=== PATIENT | male | born 1950 | race Caucasian/White ===

== ENCOUNTER 2020-09-16 06:52 | Outpatient (REF) | payer MEDICARE, SELFPAY ==
[2020-09-16 07:42] LABS: MANUAL DIFF FLAG NO
[2020-09-16 07:47] LABS: Basophils Percent Auto 0.4 % (0-2); Eosinophils Absolute Auto 0.3 X10*3/uL (0.0-0.4); Eosinophils Percent Auto 4.1 % (0-4); Hematocrit 46.8 % (42-52); Imm Gran Abs Auto 0.02 X10*3/uL (0.00-0.03); Imm Gran Pct Auto 0.3 % (0.0-0.4); Lymphocytes Absolute Auto 2.1 X10*3/uL (1.2-4.9); Lymphocytes Percent Auto 30.2 % (20-40); Mean Corpuscular HGB Conc 34.2 g/dl (31.0-36.0); Mean Corpuscular Hemoglobin 31.7 pg (27.0-33.0); Mean Corpuscular Volume 92.9 fL (80-98); Mean Platelet Volume 8.9 fL (9.4-12.4); Monocytes Absolute Auto 0.7 X10*3/uL (0.1-1.2); Neutrophils Absolute Auto 3.8 X10*3/uL (2.0-8.3); Platelet Count 328 X10*3/uL (160-400); Red Blood Count 5.04 X10*6/uL (4.60-5.80); Red Cell Distribution Width 13.1 % (11.0-16.0); White Blood Count 6.8 X10*3/uL (4.8-10.8)
[2020-09-16 08:13] LABS: Alanine Aminotransferase 21 U/L (0-40); Alkaline Phosphatase 80 U/L (39-117); Anion Gap 12 (12-20); Aspartate Amino Transferase 23 U/L (5-37); Bilirubin Total 0.5 mg/dL (0.0-1.0); Blood Urea Nitrogen 18 mg/dL (9-16); Calcium 9.7 mg/dL (8.4-10.2); Carbon Dioxide 26 mmol/L (22-29); Chloride 106 mmol/L (96-108); Cholesterol 161 mg/dL; Estimated Glomerular Filt Rate > 60; Glucose Fasting 103 mg/dL (60-99); HDL Cholesterol 42 mg/dL; LDL Cholesterol Calculated 86 mg/dl; Potassium 4.2 mmol/L (3.3-5.1); Sodium 140 mmol/L (135-145); Total Protein 7.1 g/dL (6.5-8.0); Triglycerides 169 mg/dL
[2020-09-16 08:23] LABS: TSH reflex Free T4 0.57 uIU/mL (0.32-4.0)
[2020-09-16 08:31] LABS: Glucose Urine UA NEG (NEG); Leukocyte Esterase Urine NEG (NEG); Nitrite Urine NEG (NEG); Specific Gravity - Urine >= 1.030 (1.005-1.025); Urine Blood NEG (NEG); Urine Ketones NEG (NEG); Urine Protein TRACE MG/DL (NEG-TRACE)
[2020-09-16 08:34] LABS: Appearance Urine CLEAR; Color Urine DARK YELLOW
== END 2020-09-16 06:53 | disposition home or self-care (01) ==
LOC: HO.LAB 06:52
PROVIDERS: PCP Internal Medicine; Visit Provider Internal Medicine
DX: K58.9 Irritable bowel syndrome, unspecified (principal); E78.00 Pure hypercholesterolemia, unspecified; R03.0 Elevated blood-pressure reading, without diagnosis of hypertension
CPT/HCPCS: 36415; 80053; 80061; 81003; 84443; 85025

== ENCOUNTER → 2020-10-17 10:44 | Outpatient (BNVA) | payer MEDICARE, SELFPAY | PROVIDERS: PCP Internal Medicine; Referring Provider Internal Medicine; Visit Provider Surgery | DX: Z86.010 Personal history of colon polyps (principal) | CPT/HCPCS: 99202 ==

== ENCOUNTER 2020-11-18 07:17 | Day surgery (SDC) | payer MEDICARE, SELFPAY ==
[2020-11-10 15:50] VITALS: BMI 24.2
--- NOTE | 2020-11-17 08:42 | P.CONAN_ITS ---
Documented by User: Mercedes Healy 11/17/20 08:44 HPI - Anesthesia Eval Consult details Narrative: 70yo M for Colonoscopy with Poss Polypectomy PMFSH Active Problems Active Problems: All Active Problems (Updated 11/10/20 @ 16:01 by Alondra Ewing) History of adenomatous polyp of colon (Acute) Irritable bowel syndrome (IBS) (Acute) Elevated blood pressure reading (Acute) Pure hypercholesterolemia (Acute) Past Medical History Medical History Abnormal colonoscopy Elevated blood pressure reading History of adenomatous polyp of colon Irritable bowel syndrome (IBS) Pure hypercholesterolemia Tubular adenoma of colon Family History Family History Father Prostate cancer Brother Hepatitis Surgical History Surgical History History of eye surgery Social History Social History Are you a primary patient care to a significant other at home: No Do you presently have visiting nurse or other home services: No Alcohol intake: former Patient Tobacco Use Status: Former Tobacco user Use of substances other than those prescribed or required for medical reasons: No Are you DNR?: No Advance Directives: No Advance Directives Information Provided: No Advance Directives on File: No Meds Allergies Allergy/AdvReac Type Severity Reaction Status Date / Time lactose [LACTOSE] Allergy Severe DIARHEA, Verified 11/10/20 16:01 abd pain, bloating, LAUNDRY DETERGENT AdvReac Mild RASH TO Uncoded 11/10/20 16:01 UNKNOWN LAUNDRY DETERGENT Exam Exam Date and Time: November 17, 2020 0842 Height,Weight and Vital Signs: Height 5 ft 9 in Weight 74.389 kg Pertinent Lab Results Pertinent Lab Results: Laboratory Tests 09/16/20 09/16/20 07:10 07:10 WBC 6.8 Hgb 16.0 Hct 46.8 Plt Count 328 Sodium 140 Potassium 4.2 Chloride 106 Carbon Dioxide 26 BUN 18 H Creatinine 1.10 Assessment and Plan Assessment Anesthesia Assessment: Chart Reviewed Documented by User: Heidi Fernando 11/18/20 08:06 [facility] Past Medical History Medical History Abnormal colonoscopy Elevated blood pressure reading History of adenomatous polyp of colon Irritable bowel syndrome (IBS) Pure hypercholesterolemia Tubular adenoma of colon Family History Family History Father Prostate cancer Brother Hepatitis Family history of problems with anesthesia: No Surgical History Surgical History History of eye surgery History of Problems with Anesthesia: Yes Social History Social History Are you a primary patient care to a significant other at home: No Do you presently have visiting nurse or other home services: No Alcohol intake: former Patient Tobacco Use Status: Former Tobacco user Use of substances other than those prescribed or required for medical reasons: No Are you DNR?: No Advance Directives: No Advance Directives Information Provided: No Advance Directives on File: No Meds Allergies Allergy/AdvReac Type Severity Reaction Status Date / Time lactose [LACTOSE] Allergy Severe DIARHEA, Verified 11/10/20 16:01 abd pain, bloating, LAUNDRY DETERGENT AdvReac Mild RASH TO Uncoded 11/10/20 16:01 UNKNOWN LAUNDRY DETERGENT Exam Airway Mallampati Class: II TM Dist: >3cm Neck ROM: Full Assessment and Plan Assessment Anesthesia Assessment: Anesthesia Plan Discussed Final Anesthetic Review Family History of Problems with Anesthesia: No History of Problems with Anesthesia: Yes NPO: Yes ASA Class: II Final Preanesthetic Review: No Changes in Pt Med Stat, Meds/Allgs Chart Reviewed, Consent Obtained/Reviewed and Anes Risks/Benef Reviewed Patient Risk: Low Procedure Risk: Low Assessment/Block/Sedation in SS: Assess/Block/Sedation-SS Anesthetic Plan Anesthetic Plan: MAC: Disposition: Standard PACU
[2020-11-18 07:19] VITALS: BP 196/89; PULSE 82; RESP 19; TEMP 36.6; O2SAT 98
[2020-11-18 07:41] VITALS: BP 155/93; PULSE 77; RESP 18; TEMP 36.1; O2SAT 97
[2020-11-18] MEDS: Lactated Ringers 1,000 ML 100 ML IVCONT (07:42)
--- NOTE | 2020-11-18 07:59 | MHC.SHP ---
Pre-Procedural Eval Section A Date of Service: 11/18/20 Section B Chief Complaint: History of adenomatous polyp of colon Allergies: Allergies Allergy/AdvReac Type Severity Reaction Status Date / Time lactose [LACTOSE] Allergy Severe DIARHEA, Verified 11/10/20 16:01 abd pain, bloating, LAUNDRY DETERGENT AdvReac Mild RASH TO Uncoded 11/10/20 16:01 UNKNOWN LAUNDRY DETERGENT Plan I have reviewed the history and physical and performed a pertinent physical examination on my patient. No changes have occurred unless specified.
--- NOTE | 2020-11-18 08:31 | W.PM.OPN ---
Operative Note Operative Note Date of Service: 11/18/20 Narrative: Preop diagnosis: History of colon polyps Postop diagnosis: 1. Incomplete colonoscopy due to severe angulation in the sigmoid at level 35-40 cm - patient to be sent for CT colonography 2. Sigmoid diverticulosis, moderate Procedure: Colonoscopy up to the level 40 cm only Surgeon: Dixon Villalta MD Patient is a 70-year-old male with history of adenomas in 2016 and was recommended to have another follow-up colonoscopy in 5 years. He understood the technique of the procedure as well as the risks, benefits, and alternatives He was brought to the operating room and placed in left lateral decubitus position under monitored anesthesia care. A full digital rectal exam was done and there were no palpable anal lesions. The tip of the Olympus colonoscope was gently introduced through the anal orifice and advanced with insufflation. There was note of moderate diverticulosis seen in the sigmoid. At the level about 35-40 cm however, we encountered a very sharp angulation. We attempted to advance the scope through this sharp angulation multiple times without success. We spent some time with going re-advancing the scope to attempt to get past this sharp angulation. Eventually I felt that it would be unsafe to continue attempting so I decided to withdraw the scope and schedule the patient for CT colonography. I examined the rest of the distal sigmoid and rectum with withdrawal while. There was note of moderate diverticulosis of the sigmoid but there were no other lesions seen. The anal canal was unremarkable with the scope was then withdrawn completely. The patient tolerated procedure well. There were no immediate complications. I will arrange for the patient to undergo CT colonography to complete examination. I will decide on the next screening colonoscopy depending on the findings on CT colonography.
[2020-11-18 08:35] VITALS: BP 118/81; PULSE 73; RESP 14; TEMP 36.1; O2SAT 99
--- NOTE | 2020-11-18 08:35 | PM.OP ---
Brief Operative Note Date of Service: 11/18/20 Pre-op diagnosis: History of polyps Post-op diagnosis: other (Incomplete colonoscopy, sigmoid diverticulosis) Procedure: Incomplete colonoscopy to level 40 cm Surgeon: Dixon Villalta MD Anesthesia: MAC Was an Warehouse Operations Manager used for this Procedure?: No Estimated blood loss (mL): 0 Pathology: none sent Condition: stable Disposition: other (CT colonography)
[2020-11-18 08:50] VITALS: BP 131/83; PULSE 75; RESP 16; O2SAT 97
[2020-11-18 09:05] VITALS: BP 159/84; PULSE 72; RESP 16; O2SAT 97
[2020-11-18 09:14] VITALS: BP 159/87; PULSE 66; RESP 17; TEMP 36.7; O2SAT 96
== END 2020-11-18 11:41 | disposition home or self-care (01) ==
PROVIDERS: PCP Internal Medicine; Visit Provider Surgery
PROC: 0DJD8ZZ Inspection of Lower Intestinal Tract, Via Natural or Artificial Opening Endoscopic (ICD-10-PCS; CPT 45378; principal; 2020-11-18 08:30)
DX: Z12.11 Encounter for screening for malignant neoplasm of colon (principal); Z86.010 Personal history of colon polyps; K56.609 Unspecified intestinal obstruction, unspecified as to partial versus complete obstruction; K57.30 Diverticulosis of large intestine without perforation or abscess without bleeding; K58.9 Irritable bowel syndrome, unspecified; R03.0 Elevated blood-pressure reading, without diagnosis of hypertension; E78.00 Pure hypercholesterolemia, unspecified; Z79.899 Other long term (current) drug therapy; Z87.891 Personal history of nicotine dependence
CPT/HCPCS: 45330

== ENCOUNTER 2021-01-11 08:29 | Outpatient (REF) | payer MEDICARE, SELFPAY ==
[2021-01-11 10:39] LABS: Alanine Aminotransferase 17 U/L (0-40); Albumin Level 4.1 g/dL (3.5-5.0); Alkaline Phosphatase 88 U/L (39-117); Anion Gap 12 (12-20); Aspartate Amino Transferase 20 U/L (5-37); Bilirubin Total 0.8 mg/dL (0.0-1.0); Blood Urea Nitrogen 16 mg/dL (9-16); Carbon Dioxide 26 mmol/L (22-29); Chloride 106 mmol/L (96-108); Cholesterol 164 mg/dL; Estimated Glomerular Filt Rate > 60; Glucose Fasting 103 mg/dL (60-99); HDL Cholesterol 47 mg/dL; LDL Cholesterol Calculated 95 mg/dl; Potassium 4.6 mmol/L (3.3-5.1); Sodium 139 mmol/L (135-145); Total Protein 7.2 g/dL (6.5-8.0); Triglycerides 113 mg/dL
== END 2021-01-11 08:30 | disposition home or self-care (01) ==
LOC: HO.LAB 08:29
PROVIDERS: PCP Internal Medicine; Visit Provider Internal Medicine
DX: E78.00 Pure hypercholesterolemia, unspecified (principal)
CPT/HCPCS: 36415; 80053; 80061

== ENCOUNTER 2021-07-18 06:34 | Outpatient (REF) | payer MEDICARE, SELFPAY ==
[2021-07-18 06:44] LABS: MANUAL DIFF FLAG NO
[2021-07-18 07:28] LABS: Basophils Percent Auto 0.6 % (0-2); Eosinophils Absolute Auto 0.3 X10*3/uL (0.0-0.4); Eosinophils Percent Auto 4.6 % (0-4); Hematocrit 46.3 % (42.0-52.0); Hemoglobin 15.2 g/dl (14.0-18.0); Lymphocytes Absolute Auto 2.3 X10*3/uL (1.2-4.9); Lymphocytes Percent Auto 36.5 % (20-40); Mean Corpuscular HGB Conc 32.8 g/dl (31.0-36.0); Mean Corpuscular Hemoglobin 31.2 pg (27.0-33.0); Mean Corpuscular Volume 95.1 fL (80.0-98.0); Monocytes Absolute Auto 0.7 X10*3/uL (0.1-1.2); Monocytes Percent Auto 10.5 % (2-11); Neutrophils Percent Auto 47.8 % (45-73); Platelet Count 320 X10*3/uL (160-400); Red Blood Count 4.87 X10*6/uL (4.60-5.80); Red Cell Distribution Width 12.6 % (11.0-16.0); White Blood Count 6.3 X10*3/uL (4.8-10.8)
[2021-07-18 07:52] LABS: Alanine Aminotransferase 18 U/L (0-40); Albumin Level 4.1 g/dL (3.5-5.0); Alkaline Phosphatase 84 U/L (39-117); Anion Gap 11 (12-20); Aspartate Amino Transferase 21 U/L (5-37); Bilirubin Total 0.5 mg/dL (0.0-1.0); Blood Urea Nitrogen 18 mg/dL (9-16); Calcium 10.1 mg/dL (8.4-10.2); Carbon Dioxide 28 mmol/L (22-29); Chloride 108 mmol/L (96-108); Cholesterol 155 mg/dL; Estimated Glomerular Filt Rate > 60; Glucose Fasting 127 mg/dL (60-99); HDL Cholesterol 43 mg/dL; LDL Cholesterol Calculated 94 mg/dl; Sodium 143 mmol/L (135-145); Total Protein 7.1 g/dL (6.5-8.0); Triglycerides 91 mg/dL
[2021-07-18 08:15] LABS: TSH reflex Free T4 0.95 uIU/mL (0.32-4.0); Vitamin D 25-OH Total 38.9 ng/mL (>30)
[2021-07-18 08:27] LABS: Appearance Urine CLEAR; Color Urine YELLOW; Glucose Urine UA NEG (NEG); Leukocyte Esterase Urine NEG (NEG); Nitrite Urine NEG (NEG); PH 5.5 (5.0-8.0); Specific Gravity - Urine >= 1.030 (1.005-1.025); UACC Culture Trigger NO; Urine Blood 2+ (NEG); Urine Ketones NEG (NEG); Urine Protein TRACE MG/DL (NEG-TRACE)
[2021-07-18 08:47] LABS: Calcium Oxalate Crystals Urine TRACE /LPF; Mucus Urine 2+ /LPF; WBC Urine 0 /HPF (0-4)
== END 2021-07-18 06:35 | disposition home or self-care (01) ==
LOC: HO.LAB 06:34
PROVIDERS: PCP Internal Medicine; Visit Provider Internal Medicine
DX: I10 Essential (primary) hypertension (principal); E78.00 Pure hypercholesterolemia, unspecified; E55.9 Vitamin D deficiency, unspecified
CPT/HCPCS: 36415; 80053; 80061; 81001; 82306; 84443; 85025

== ENCOUNTER 2022-01-17 06:13 | Outpatient (REF) | payer MEDICARE, SELFPAY ==
[2022-01-17 06:25] LABS: MANUAL DIFF FLAG NO
[2022-01-17 07:38] LABS: Basophils Absolute Auto 0.1 X10*3/uL (0.0-0.2); Basophils Percent Auto 0.8 % (0-2); Eosinophils Absolute Auto 0.3 X10*3/uL (0.0-0.4); Eosinophils Percent Auto 3.6 % (0-4); Hematocrit 47.1 % (42.0-52.0); Hemoglobin 15.7 g/dl (14.0-18.0); Imm Gran Abs Auto 0.02 X10*3/uL (0.00-0.03); Imm Gran Pct Auto 0.2 % (0.0-0.4); Lymphocytes Absolute Auto 2.5 X10*3/uL (1.2-4.9); Lymphocytes Percent Auto 30.2 % (20-40); Mean Corpuscular HGB Conc 33.3 g/dl (31.0-36.0); Mean Corpuscular Hemoglobin 31.5 pg (27.0-33.0); Mean Corpuscular Volume 94.4 fL (80.0-98.0); Mean Platelet Volume 8.9 fL (9.4-12.4); Monocytes Absolute Auto 0.8 X10*3/uL (0.1-1.2); Monocytes Percent Auto 9.6 % (2-11); Neutrophils Absolute Auto 4.7 x10*3/uL (2.0-8.3); Neutrophils Percent Auto 55.6 % (45-73); Platelet Count 372 X10*3/uL (160-400); Red Blood Count 4.99 X10*6/uL (4.60-5.80); Red Cell Distribution Width 12.7 % (11.0-16.0); White Blood Count 8.4 X10*3/uL (4.8-10.8)
[2022-01-17 07:51] LABS: Alanine Aminotransferase 21 U/L (0-40); Albumin Level 4.3 g/dL (3.5-5.0); Alkaline Phosphatase 92 U/L (39-117); Anion Gap 15 (12-20); Aspartate Amino Transferase 23 U/L (5-37); Bilirubin Total 0.5 mg/dL (0.0-1.0); Blood Urea Nitrogen 16 mg/dL (9-16); Calcium 10.1 mg/dL (8.4-10.2); Carbon Dioxide 26 mmol/L (22-29); Chloride 104 mmol/L (96-108); Cholesterol 163 mg/dL; Estimated Glomerular Filt Rate > 60; Glucose Fasting 122 mg/dL (60-99); HDL Cholesterol 42 mg/dL; LDL Cholesterol Calculated 91 mg/dl; Potassium 4.5 mmol/L (3.3-5.1); Sodium 140 mmol/L (135-145); Total Protein 7.4 g/dL (6.5-8.0); Triglycerides 151 mg/dL
[2022-01-17 08:15] LABS: TSH reflex Free T4 0.99 uIU/mL (0.32-4.0)
== END 2022-01-17 06:14 | disposition home or self-care (01) ==
LOC: HO.LAB 06:13
PROVIDERS: PCP Internal Medicine; Visit Provider Internal Medicine
DX: I10 Essential (primary) hypertension (principal); E55.9 Vitamin D deficiency, unspecified; E78.00 Pure hypercholesterolemia, unspecified
CPT/HCPCS: 36415; 80053; 80061; 82306; 84443; 85025

== ENCOUNTER 2022-06-29 05:55 | Outpatient (REF) | payer MEDICARE, SELFPAY ==
[2022-06-29 06:10] LABS: MANUAL DIFF FLAG NO
[2022-06-29 07:11] LABS: Basophils Percent Auto 0.5 % (0-2); Eosinophils Absolute Auto 0.3 X10*3/uL (0.0-0.4); Eosinophils Percent Auto 4.1 % (0-4); Hematocrit 43.2 % (42.0-52.0); Hemoglobin 14.2 g/dl (14.0-18.0); Imm Gran Abs Auto 0.02 X10*3/uL (0.00-0.03); Imm Gran Pct Auto 0.3 % (0.0-0.4); Lymphocytes Absolute Auto 2.6 X10*3/uL (1.2-4.9); Lymphocytes Percent Auto 35.2 % (20-40); Mean Corpuscular HGB Conc 32.9 g/dl (31.0-36.0); Mean Corpuscular Hemoglobin 31.8 pg (27.0-33.0); Mean Corpuscular Volume 96.9 fL (80.0-98.0); Mean Platelet Volume 8.7 fL (9.4-12.4); Monocytes Absolute Auto 0.7 X10*3/uL (0.1-1.2); Monocytes Percent Auto 9.3 % (2-11); Neutrophils Absolute Auto 3.8 x10*3/uL (2.0-8.3); Neutrophils Percent Auto 50.6 % (45-73); Platelet Count 435 X10*3/uL (160-400); Red Blood Count 4.46 X10*6/uL (4.60-5.80); White Blood Count 7.5 X10*3/uL (4.8-10.8)
[2022-06-29 07:16] LABS: Appearance Urine Clear; Color Urine Yellow; Glucose Urine UA Negative (Negative); Leukocyte Esterase Urine Negative (Negative); Nitrite Urine Negative (Negative); PH 5.5 (5.0-9.0); Specific Gravity - Urine >= 1.030 (1.005-1.025); UMIC TRIGGER UACC YES; Urine Blood Small (1+) (Negative); Urine Ketones Negative (Negative); Urine Protein Negative (Neg-Trace)
[2022-06-29 07:28] LABS: Estimated Average Glucose 111 mg/dL; Hemoglobin A1c % 5.5 %
[2022-06-29 07:33] LABS: Bacteria Urine None Seen (None Seen); Hyaline Casts Urine 0-2 /LPF (0-2); Squamous Epithelial Cell Urine 0-2 /HPF (0-2); WBC Urine 0-5 /HPF (0-5)
[2022-06-29 07:45] LABS: Alanine Aminotransferase 19 U/L (0-40); Albumin Level 4.1 g/dL (3.5-5.0); Alkaline Phosphatase 80 U/L (39-117); Anion Gap 14 (12-20); Aspartate Amino Transferase 21 U/L (5-37); Bilirubin Total 0.6 mg/dL (0.0-1.0); Blood Urea Nitrogen 20 mg/dL (9-16); Calcium 9.7 mg/dL (8.4-10.2); Carbon Dioxide 26 mmol/L (22-29); Chloride 104 mmol/L (96-108); Cholesterol 165 mg/dL; Estimated Glomerular Filt Rate > 60; Glucose Fasting 118 mg/dL (60-99); HDL Cholesterol 44 mg/dL; LDL Cholesterol Calculated 97 mg/dl; Potassium 4.3 mmol/L (3.3-5.1); Sodium 140 mmol/L (135-145); Total Protein 7.2 g/dL (6.5-8.0); Triglycerides 123 mg/dL
[2022-06-29 08:03] LABS: TSH reflex Free T4 0.83 uIU/mL (0.32-4.0)
== END 2022-06-29 05:56 | disposition home or self-care (01) ==
LOC: HO.LAB 05:55
PROVIDERS: PCP Internal Medicine; Visit Provider Internal Medicine
DX: I10 Essential (primary) hypertension (principal); R73.01 Impaired fasting glucose; E78.00 Pure hypercholesterolemia, unspecified
CPT/HCPCS: 36415; 80053; 80061; 81001; 83036; 84443; 85025

== ENCOUNTER 2022-08-17 07:37 | Outpatient (REF) | payer MEDICARE, SELFPAY ==
--- NOTE | ~2022-08-17 | XR_ITS ---
EXAMINATION: XR knee LT 4V, XR knee RT 4V CLINICAL INFORMATION: Additional Information: p.s. bilateral knee and left hip pain : COMPARISON: None. TECHNIQUE: 4 views of the left knee including AP upright view. 4 views of the right knee including AP upright view. FINDINGS: Left knee: No fracture or subluxation. Mild medial compartment joint space narrowing. Small tricompartmental marginal osteophytes. Chondrocalcinosis at the medial and lateral compartments. No joint effusion. The soft tissues appear unremarkable. Right knee: No fracture or subluxation. Mild narrowing at the medial compartment. Small tricompartmental marginal osteophytes. Chondrocalcinosis of the medial and lateral compartments. No joint effusion. The soft tissues appear unremarkable. XR/XR knee RT 4V IMPRESSION: Mild tricompartmental degenerative changes of both knees. Chondrocalcinosis. No acute abnormality.
--- NOTE | ~2022-08-17 | XR_ITS ---
EXAMINATION: XR knee LT 4V, XR knee RT 4V CLINICAL INFORMATION: Additional Information: p.s. bilateral knee and left hip pain : COMPARISON: None. TECHNIQUE: 4 views of the left knee including AP upright view. 4 views of the right knee including AP upright view. FINDINGS: Left knee: No fracture or subluxation. Mild medial compartment joint space narrowing. Small tricompartmental marginal osteophytes. Chondrocalcinosis at the medial and lateral compartments. No joint effusion. The soft tissues appear unremarkable. Right knee: No fracture or subluxation. Mild narrowing at the medial compartment. Small tricompartmental marginal osteophytes. Chondrocalcinosis of the medial and lateral compartments. No joint effusion. The soft tissues appear unremarkable. XR/XR knee LT 4V IMPRESSION: Mild tricompartmental degenerative changes of both knees. Chondrocalcinosis. No acute abnormality.
--- NOTE | ~2022-08-17 | XR_ITS ---
EXAMINATION: XR HIP, LEFT CLINICAL INFORMATION: Pain COMPARISON: None available. TECHNIQUE: Two views of the left hip. FINDINGS: No fracture or dislocation. Moderate to severe degenerative changes of the left hip with joint space narrowing superiorly. Subchondral sclerosis with osteophytes noted. The left hemipelvis is intact. XR/XR hip LT min 2V IMPRESSION: Moderate to severe degenerative changes of the left hip.
== END 2022-08-17 07:38 | disposition home or self-care (01) ==
LOC: HO.XRAY 07:37
PROVIDERS: PCP Internal Medicine; Visit Provider Internal Medicine
DX: M25.552 Pain in left hip (principal); M25.561 Pain in right knee; M25.562 Pain in left knee
CPT/HCPCS: 73502; 73564

== ENCOUNTER 2023-01-14 08:00 | Outpatient (REF) | payer MEDICARE, SELFPAY ==
[2023-01-14 08:26] LABS: MANUAL DIFF FLAG NO
[2023-01-14 09:22] LABS: Basophils Absolute Auto 0.1 X10*3/uL (0.0-0.2); Eosinophils Absolute Auto 0.3 X10*3/uL (0.0-0.4); Eosinophils Percent Auto 4.8 % (0-4); Hematocrit 44.3 % (42.0-52.0); Hemoglobin 14.8 g/dl (14.0-18.0); Imm Gran Abs Auto 0.03 X10*3/uL (0.00-0.03); Imm Gran Pct Auto 0.4 % (0.0-0.4); Lymphocytes Percent Auto 28.3 % (20-40); Mean Corpuscular HGB Conc 33.4 g/dl (31.0-36.0); Mean Corpuscular Hemoglobin 32.5 pg (27.0-33.0); Mean Corpuscular Volume 97.1 fL (80.0-98.0); Mean Platelet Volume 8.9 fL (9.4-12.4); Monocytes Absolute Auto 0.9 X10*3/uL (0.1-1.2); Monocytes Percent Auto 12.2 % (2-11); Neutrophils Absolute Auto 3.7 x10*3/uL (2.0-8.3); Neutrophils Percent Auto 53.3 % (45-73); Platelet Count 367 X10*3/uL (160-400); Red Blood Count 4.56 X10*6/uL (4.60-5.80); Red Cell Distribution Width 12.5 % (11.0-16.0)
[2023-01-14 09:28] LABS: Appearance Urine Clear; Color Urine Dark Yellow; Glucose Urine UA Negative (Negative); Leukocyte Esterase Urine Negative (Negative); Nitrite Urine Negative (Negative); PH 5.5 (5.0-9.0); Specific Gravity - Urine >= 1.030 (1.005-1.025); Urine Blood Negative (Negative); Urine Ketones Trace mg/dL (Negative); Urine Protein Negative (Neg-Trace)
[2023-01-14 09:33] LABS: Estimated Average Glucose 105 mg/dL; Hemoglobin A1c % 5.3 % (<6.0)
[2023-01-14 11:09] LABS: Alanine Aminotransferase 20 U/L (0-40); Albumin Level 4.1 g/dL (3.5-5.0); Alkaline Phosphatase 74 U/L (39-117); Anion Gap 16 (12-20); Aspartate Amino Transferase 26 U/L (5-37); Bilirubin Total 0.5 mg/dL (0.0-1.0); Blood Urea Nitrogen 15 mg/dL (9-16); Calcium 9.8 mg/dL (8.4-10.2); Carbon Dioxide 24 mmol/L (22-29); Chloride 106 mmol/L (96-108); Cholesterol 138 mg/dL (<200); Estimated Glomerular Filt Rate > 60; Glucose Fasting 91 mg/dL (60-99); HDL Cholesterol 40 mg/dL (>40); LDL Cholesterol Calculated 72 mg/dL (<100); Potassium 4.1 mmol/L (3.3-5.1); Sodium 142 mmol/L (135-145); Total Protein 7.4 g/dL (6.5-8.0); Triglycerides 134 mg/dL (<150)
[2023-01-14 11:27] LABS: TSH reflex Free T4 0.98 uIU/mL (0.32-4.0); Vitamin D 25-OH Total 54.6 ng/mL (>30)
== END 2023-01-14 08:01 | disposition home or self-care (01) ==
LOC: HO.LAB 08:00
PROVIDERS: PCP Internal Medicine; Visit Provider Internal Medicine
DX: E78.00 Pure hypercholesterolemia, unspecified (principal); R30.0 Dysuria; R73.01 Impaired fasting glucose; I10 Essential (primary) hypertension; E55.9 Vitamin D deficiency, unspecified
CPT/HCPCS: 36415; 80053; 80061; 81003; 82306; 83036; 84443; 85025

== ENCOUNTER 2023-02-08 09:26 | Outpatient (AMB) | payer MEDICARE, SELFPAY ==
[2023-02-08 09:36] VITALS: BP 124/82; PULSE 63; O2SAT 97; BMI 24.6
--- NOTE | 2023-02-08 09:36 | MHC.PC.OV ---
Vital Signs 02/08/23 09:36 Height 5 ft 9 in Weight 166 lb 8 oz BMI 24.6 BP 124/82 Blood Pressure Location Lt brachial Position Sitting Pulse 63 Pulse Source Pulse Oximeter Pulse Oximetry (%) 97 Oxygen Delivery Method Room Air Intake Visit Reasons: 6 month f/u Solder Cream Maker Required: No Accompanied by: Self / Same As Patient Allergies lactose [LACTOSE] Allergy (Severe, Verified 02/08/23 10:02) DIARHEA, abd pain, bloating, LAUNDRY DETERGENT Adverse Reaction (Mild, Uncoded 02/08/23 10:02) RASH TO UNKNOWN LAUNDRY DETERGENT Medication List - Last Reconciled 02/08/23 by Clayton French MD dicyclomine 20 mg PO TID 30 days gabapentin 600 mg PO BEDTIME 30 days nabumetone 500 mg PO QAM PRN 30 days pravastatin 40 mg PO DAILY 90 days Tobacco use date assessed: 02/08/23 Fall risk assessment: No Falls in past year Last assessed Fall Risk: 02/08/23 Dental Screening Dental Screen Date: 02/08/23 Did you have a dental visit in the last 12 months?: No Did you have a dental problem in the last 6 months where you did not have access to dental care?: No Was dental information given to patient?: No HPI 6 month f/u HPI Details Patient comes in today for his follow up visit States that he feels okay He denies any headaches or dizziness Denies any chest pains, no SOB No nausea/vomiting, no abdominal pain No change in bowel habits noted Needs a few of his Rx refilled Had his follow up labs done a few weeks ago - to discuss his results Still has recurrent pain in both knees and in the left hip; states that his left knee pain has improved somewhat with cortisone injection and he is now seeing orthopedics at [facility] for his joint pains Would also like to get his flu shot here today [facility] Medical History (Updated 02/08/23 @ 12:56 by Clayton French MD) Primary osteoarthritis of left hip Primary osteoarthritis of knees, bilateral Abnormal colonoscopy History of adenomatous polyp of colon Irritable bowel syndrome (IBS) Tubular adenoma of colon Elevated blood pressure reading Pure hypercholesterolemia Surgical History Hx of colonoscopy History of eye surgery Family History Father Prostate cancer Brother Hepatitis Social History Housing: Apartment Are you a primary home care aide to a significant other at home: No Do you presently have visiting nurse or other home services: No Alcohol intake: former Patient Tobacco Use Status: Former Tobacco user e-Cigarette/Vaping Use: Former Use Second Hand Smoke Exposure: Yes service: No Current occupational status: retired Hearing needs: Yes Vision needs: Yes Questionnaire PHQ-9 Over the last 2 weeks, how often have you been bothered by any of the following problems? 1. Little interest or pleasure in doing things: not at all 2. Feeling down, depressed, or hopeless: not at all 3. Trouble falling or staying asleep, or sleeping too much: not at all 4. Feeling tired or having little energy: not at all 5. Poor appetite or overeating: not at all 6. Feeling bad about yourself - or that you are a failure or have let yourself or your family down: not at all 7. Trouble concentrating on things, such as reading the newspaper or watching television: not at all 8. Moving or speaking so slowly that other people could have noticed. Or the opposite - being so fidgety or restless that you have been moving around a lot more than usual: not at all 9. Thoughts that you would be better off or of hurting yourself in some way: not at all Total score: 0 Depression Screening Interpretation: Negative Depression Screening Done: Yes 17962 - PHQ-9 Billing: Yes Source: Developed by Drs. Kali Quintanilla, Sydney Felipe, Tera Millard and colleagues, with an educational allen from [employer]. Thrive Questionnaire Date Thrive assessed: 02/08/23 I am a: Patient What is your living situation today?: I have a steady place to live Within the past 12 months, did the food you bought not last and you didn't have the money to get more?: Never true Within the past 12 months, did you worry whether your food would run out before you got money to buy more?: Never true Do you have trouble paying for medicines?: No Do you have trouble getting transportation to medical appointments?: No Do you have trouble paying your heating and electricity bill?: No Do you have trouble taking care of your child, family member or friend?: No Do you have trouble with day-to-day activities such as bathing, preparing meals, shopping, managing finances, etc.?: No Are you currently unemployed and looking for a job?: No Are you interested in more education?: No Please select the resources that you would like help with: None Currently or been in a relationship where the following occur: no concerns reported AUDIT C Alcohol Use Questionnaire (AUDIT-C) 1. How often do you have a drink containing alcohol?: Never Total Score: 0 Score Reviewed/Action Taken: Yes AARON-7 AMB Questionnaire AARON-7 Date AARON - 7 assessed: 02/08/23 Feeling nervous, anxious, or on edge: 0 = Not at all Not being able to stop or control worryin = Not at all Worrying too much about different things: 0 = Not at all Trouble relaxin = Not at all Being so restless that it is hard to sit still: 0 = Not at all Becoming easily annoyed or irritable: 0 = Not at all Feeling afraid as if something awful might happen: 0 = Not at all Total AARON-7 score (0-4 normal; 5-9 mild; 10-14 moderate; 15-21 severe): 0 Source: Developed by Drs. Kali Quintanilla, Sydney Felipe, Tera Millard and colleagues, with an educational allen from [employer]. Review of Systems Const Denies chills, Denies fatigue, Denies fever(s) and Denies headache(s) ENT Details: * patient is somewhat hard of hearing and has a tendency to read lips to compensate Denies dysphagia, Denies dizziness, Denies otalgia, Denies headache(s), Reports hearing loss, Denies neck pain, Denies odynophagia and Denies sore throat Card Denies chest pain, Denies palpitations and Denies dyspnea Resp Denies cough and Denies dyspnea GI Denies abdominal pain, Denies constipation, Denies dysphagia, Denies heartburn, Denies diarrhea, Denies nausea, Denies odynophagia and Denies vomiting Reports oliguria (has noticed some slowing of urine stream), Denies dysuria, Denies nocturia, Denies urinary frequency and Denies urinary incontinence Musc Denies back pain, Reports arthralgias (on and off pain in both knees and left hip - worse at night), Denies neck pain and Reports stiffness Skin/Breast Denies rash Neuro Denies dizziness and Denies headache(s) Endo Denies fatigue and Denies palpitations Physical exam (Primary Care) Vital Signs: Last Vital Signs Pulse 63 02/08/23 09:36 BP 124/82 02/08/23 09:36 Pulse Ox 97 02/08/23 09:36 Oxygen Delivery Method Room Air 02/08/23 09:36 BMI result Body Mass Index 24.6 Tobacco/Smoking Status: Tobacco use Status Tobacco use date assessed 02/08/23 02/08/23 09:42 Patient Tobacco Use Status Former Tobacco user 02/08/23 09:42 e-Cigarette/Vaping Use Former Use 02/08/23 09:42 PHQ-9: PHQ-9 Score PHQ-9: Total score 0 02/08/23 09:51 Depression Screening Interpretation: Negative Thrive Assessment: Date of Thrive Assessment Date Thrive assessed 02/08/23 02/08/23 09:42 Currently or been in a relationship where the following occur: no concerns reported Const General: no acute distress and alert HENMT Ears: TM's normal bilaterally and EAC's normal Throat: Yes posterior oropharynx normal and Yes tonsils normal (no TP congestion noted) Neck Neck: Yes no lymphadenopathy and Yes supple Resp Auscultation: clear to auscultation bilaterally, no rales and no wheezes Cardio Rate: regular rate Rhythm: regular rhythm Heart sounds: Murmur heart sound present systolic soft, II/ and at the apex GI Palpation (GI): Soft to palpation, nontender and No hepatosplenomegaly present Auscultation: normal bowel sounds General: Yes no CVA tenderness Back/Spine/Pelvis Back: no CVA tenderness Thoracic/Lumbar Spine: thoracic and lumbar spine normal to inspection Extrem General: Yes no clubbing, cyanosis or edema Right lower extremity: hip/thigh Details: tenderness Location: of the hip and knee Details: tenderness; no swelling Left lower extremity: knee Details: tenderness; no swelling Office Procedures Flu Questionnaire Does the patient have a severe egg allergy?: No Does the patient have severe life threatening allergies?: No Does the patient have a fever or illness today?: No Has the patient ever had Guillain-[place] Syndrome?: No Has the patient ever had any past reaction to a flu shot?: No Immunizations flu vacc [id number] 6mos up(PF) 60 mcg(15 mcgx4)/0.5 mL IM syringe Performing Provider: Clayton French MD [facility] Administered by: Yoan Lopez on 02/08/23 09:51 Dose Route Admin Location Dispensed Lot Number Expiration Date NDC Wine Steward/Stewardess 0.5 mL IM Right Deltoid 0.5 mL [id number] 10/20/23 [id number] [employer] VIS Given Date VIS Provided VIS Publication Date 02/08/23 Single Vaccine 20 Eligibility Eligibility Date Funding Source Not [facility] Eligible 02/08/23 Private Results Reviewed Results Reviewed: Laboratory Tests 01/14/23 01/14/23 01/14/23 08:20 08:24 08:24 WBC 7.0 Hgb 14.8 Hct 44.3 Plt Count 367 Sodium 142 Potassium 4.1 Creatinine 0.98 Estimated GFR > 60 Fasting Glucose 91 Hemoglobin A1c % 5.3 Calcium 9.8 AST 26 ALT 20 Triglycerides 134 Cholesterol 138 LDL Cholesterol, Calc 72 HDL Cholesterol 40 L 25-OH Vitamin D Total 54.6 TSH 0.98 Ur Specific [place] >= 1.030 H Urine Protein Negative Urine Glucose (UA) Negative Urine Blood Negative Assessment and Plan Assessment & Plan (1) Pure hypercholesterolemia: Code(s): E78.00 - Pure hypercholesterolemia, unspecified Plan: Results of his labs done a few weeks ago reviewed and discussed with patient Reinforced low cholesterol diet Continue Pravastatin 40 mg QD Will recheck his labs and fasting lipids in 6 months for follow up (2) Elevated blood pressure reading: Code(s): R03.0 - Elevated blood-pressure reading, without diagnosis of hypertension Plan: His BP appears to be much better than his usual numbers today - patient likely has some white coat HTN component Reinforced low sodium diet - goal is systolic BP of at least 140 mm or less As patient has been asymptomatic and has had no evidence of end-organ disease on his labs (has no proteinuria or microalbuminuria and serum creatinine and GFR are within normal limits) so we held off on starting him on BP meds previously Patient has also declined offer to start him on BP meds in the past; does not look like he needs BP meds at present He is advised to continue monitoring his blood pressure regularly (3) Irritable bowel syndrome (IBS): Code(s): K58.9 - Irritable bowel syndrome without diarrhea Qualifiers: Irritable bowel syndrome type: unspecified Qualified Code(s): K58.9 - Irritable bowel syndrome without diarrhea Plan: Stable lately; continue Dicyclomine 20 mg TID PRN (4) Impaired fasting glucose: Code(s): R73.01 - Impaired fasting glucose Plan: His FBS also had a tendency to run high on his routine labs - was previously at 118 mg/dl on his labs done previously but his FBS a few months ago was normal at 91 mg/dl HgbA1c was also normal at 5.3% (was previously at 5.5%) Reinforced low calorie diet/exercise as tolerated Will continue to monitor his FBS and HgbA1c regularly whenever appropriate (5) History of adenomatous polyp of colon: Code(s): Z86.010 - Personal history of colonic polyps Plan: Was supposed to get a CT colonography done a couple of years ago but patient did not go Repeat colonoscopy done in October 2020 was incomplete due to a sharp angulation encountered at the 35 to 40 cm level that made it risky to continue attempting to advance the scope but patient feels that this was due more to 's fault for not being able to complete the procedure - is not happy about having to go through the prep again and decided NOT to go for his CT colonography Still declines to pursue this further at this time but is again advised to think about it and REconsider it Discussed again option of doing Cologuard test instead in another year or so if he does not want to go back for a CT colonography or a regular colonoscopy - is advised to think about this OR consider a referral to another provider of his choice for a repeat colonoscopy He continues to decline offer to refer him back for colon cancer screening; declines Cologuard also today (6) Primary osteoarthritis of knees, bilateral: Code(s): M17.0 - Bilateral primary osteoarthritis of knee Plan: Knee x-rays done back in July 2022 revealed (+) mild tricompartmental degenerative changes of both knees; (+) chondrocalcinosis; no acute abnormalities otherwise Continue Nabumetone 500 mg Q AM with food PRN for pain and Gabapentin 600 mg Q HS States that his knee pain have improved with aspiration and cortisone injections with orthopedics a few months ago Follow up with orthopedics as scheduled - goes to [facility] Ortho (7) Primary osteoarthritis of left hip: Code(s): M16.12 - Unilateral primary osteoarthritis, left hip Plan: X-rays of the left hip done in July 2022 revealed (+) moderate to severe degenerative changes of the left hip Continue Nabumetone 500 mg Q AM with food PRN for pain and Gabapentin 600 mg Q HS Follow up with [facility] Orthopedics as scheduled Plan Flu vaccine given here today, per request Follow up in 6 months Orders: Orders Influenza [id number] Immunization Today Z23 - Encounter for immunization Complete Blood Count Auto Diff 6 Months K58.9 - Irritable bowel syndrome without diarrhea Comprehensive [place]. Panel Fast 6 Months E78.00 - Pure hypercholesterolemia, unspecified UA CC w/rflx Micro + Cult 6 Months R30.0 - Dysuria Vitamin D 25-OH Total 6 Months E55.9 - Vitamin D deficiency, unspecified Vitamin B12 and Folate 6 Months E53.8 - Deficiency of other specified B group vitamins Lipid Panel 6 Months E78.00 - Pure hypercholesterolemia, unspecified TSH reflex Free T4 6 Months E78.00 - Pure hypercholesterolemia, unspecified Medications: Refilled gabapentin 600 mg PO BEDTIME 30 days 30 tabs 3RF dicyclomine 20 mg PO TID 30 days 90 tabs 5RF nabumetone Take with food 500 mg PO QAM 30 days PRN 30 tabs 3RF joint pains Coding Level of Care Code Est Pt Level 4 (08446) Diagnoses Pure hypercholesterolemia E78.00 Elevated blood pressure reading R03.0 Irritable bowel syndrome, unspecified type K58.9 Irritable bowel syndrome type: unspecified Impaired fasting glucose R73.01 History of adenomatous polyp of colon Z86.010 Primary osteoarthritis of knees, bilateral M17.0 Primary osteoarthritis of left hip M16.12
== END 2023-02-08 10:13 | disposition home or self-care (01) ==
PROVIDERS: Visit Provider Internal Medicine
DX: E78.00 Pure hypercholesterolemia, unspecified (principal); R03.0 Elevated blood-pressure reading, without diagnosis of hypertension; K58.9 Irritable bowel syndrome, unspecified; R73.01 Impaired fasting glucose; Z86.010 Personal history of colon polyps; M17.0 Bilateral primary osteoarthritis of knee; M16.12 Unilateral primary osteoarthritis, left hip; Z23 Encounter for immunization
CPT/HCPCS: 90471; 90686; 99214

== ENCOUNTER 2023-07-10 06:35 | Outpatient (REF) | payer MEDICARE, SELFPAY ==
[2023-07-10 06:44] LABS: MANUAL DIFF FLAG NO
[2023-07-10 07:37] LABS: Basophils Absolute Auto 0.1 X10*3/uL (0.0-0.2); Basophils Percent Auto 0.7 % (0-2); Eosinophils Absolute Auto 0.4 X10*3/uL (0.0-0.4); Eosinophils Percent Auto 5.7 % (0-4); Hematocrit 44.2 % (42.0-52.0); Imm Gran Abs Auto 0.01 X10*3/uL (0.00-0.03); Imm Gran Pct Auto 0.1 % (0.0-0.4); Lymphocytes Absolute Auto 2.2 X10*3/uL (1.2-4.9); Lymphocytes Percent Auto 33.4 % (20-40); Mean Corpuscular HGB Conc 33.9 g/dl (31.0-36.0); Mean Corpuscular Hemoglobin 32.3 pg (27.0-33.0); Mean Corpuscular Volume 95.3 fL (80.0-98.0); Monocytes Absolute Auto 0.7 X10*3/uL (0.1-1.2); Monocytes Percent Auto 10.7 % (2-11); Neutrophils Absolute Auto 3.3 x10*3/uL (2.0-8.3); Neutrophils Percent Auto 49.4 % (45-73); Platelet Count 334 X10*3/uL (160-400); Red Blood Count 4.64 X10*6/uL (4.60-5.80); Red Cell Distribution Width 13.2 % (11.0-16.0); White Blood Count 6.7 X10*3/uL (4.8-10.8)
[2023-07-10 08:00] LABS: Alanine Aminotransferase 19 U/L (0-40); Alkaline Phosphatase 77 U/L (39-117); Anion Gap 12 (12-20); Aspartate Amino Transferase 22 U/L (5-37); Bilirubin Total 0.4 mg/dL (0.0-1.0); Blood Urea Nitrogen 18 mg/dL (9-16); Calcium 9.5 mg/dL (8.4-10.2); Carbon Dioxide 25 mmol/L (22-29); Chloride 109 mmol/L (96-108); Cholesterol 162 mg/dL (<200); Estimated Glomerular Filt Rate > 60; Glucose Fasting 100 mg/dL (60-99); HDL Cholesterol 45 mg/dL (>40); LDL Cholesterol Calculated 95 mg/dL (<100); Potassium 3.8 mmol/L (3.3-5.1); Sodium 142 mmol/L (135-145); Total Protein 7.2 g/dL (6.5-8.0); Triglycerides 110 mg/dL (<150)
[2023-07-10 08:07] LABS: TSH reflex Free T4 1.03 uIU/mL (0.32-4.0); Vitamin D 25-OH Total 41.9 ng/mL (>30)
[2023-07-10 08:18] LABS: Folate 13.6 ng/mL (> or = 4.0); Vitamin B12 462 pg/mL (200-900)
[2023-07-10 08:38] LABS: Appearance Urine Clear; Color Urine Yellow; Glucose Urine UA Negative (Negative); Leukocyte Esterase Urine Negative (Negative); Nitrite Urine Negative (Negative); Specific Gravity - Urine >= 1.030 (1.005-1.025); Urine Blood Negative (Negative); Urine Ketones Trace mg/dL (Negative); Urine Protein Negative (Neg-Trace)
== END 2023-07-10 06:36 | disposition home or self-care (01) ==
LOC: HO.LAB 06:35
PROVIDERS: PCP Internal Medicine; Visit Provider Internal Medicine
DX: E55.9 Vitamin D deficiency, unspecified (principal); E53.8 Deficiency of other specified B group vitamins; E78.00 Pure hypercholesterolemia, unspecified; R30.0 Dysuria; K58.9 Irritable bowel syndrome, unspecified
CPT/HCPCS: 36415; 80053; 80061; 81003; 82306; 82607; 82746; 84443; 85025

== ENCOUNTER 2023-07-22 09:04 | Outpatient (AMB) | payer MEDICARE, SELFPAY ==
--- NOTE | 2023-07-22 09:14 | A.OFFPC_ITS ---
Vital Signs 07/22/23 09:17 Height 5 ft 9 in Weight 171 lb BMI 25.2 BP 110/70 Blood Pressure Location Lt brachial Position Sitting Pulse 63 Pulse Source Pulse Oximeter Pulse Oximetry (%) 96 Oxygen Delivery Method Room Air Intake Visit Reasons: hyperlipidemia, IBS Intake Note: Patient is here to follow up on Hyperlipidemia, IBS. 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 Associate: Not Required per policy Accompanied by: Self / Same As Patient Allergies lactose [LACTOSE] Allergy (Severe, Verified 07/22/23 09:31) DIARHEA, abd pain, bloating, LAUNDRY DETERGENT Adverse Reaction (Mild, Uncoded 07/22/23 09:31) RASH TO UNKNOWN LAUNDRY DETERGENT Medication List - Last Reconciled 07/22/23 by Clayton French MD dicyclomine 20 mg PO TID 30 days gabapentin 600 mg PO BEDTIME 30 days nabumetone 500 mg PO QAM PRN 30 days pravastatin 40 mg PO DAILY 90 days Tobacco use date assessed: 07/22/23 Fall risk assessment: No Falls in past year Last assessed Fall Risk: 07/22/23 Dental Screening Dental Screen Date: 07/22/23 Did you have a dental visit in the last 12 months?: No Did you have a dental problem in the last 6 months where you did not have access to dental care?: No Was dental information given to patient?: No HPI hyperlipidemia, IBS HPI Details Patient comes in today for his follow up visit States that he feels okay although his knees have been acting up again lately Recalls that they felt good after he got cortisone injections from [facility] sometime last year and he got some relief from his knee pains for a while He denies any headaches or dizziness Denies any chest pains, no SOB No nausea/vomiting, no abdominal pain No change in bowel habits noted Had his follow up labs done a couple of weeks ago - to discuss his results [facility] Medical History Primary osteoarthritis of left hip Primary osteoarthritis of knees, bilateral Abnormal colonoscopy History of adenomatous polyp of colon Irritable bowel syndrome (IBS) Tubular adenoma of colon Elevated blood pressure reading Pure hypercholesterolemia Surgical History Hx of colonoscopy History of eye surgery Family History Father Prostate cancer Brother Hepatitis Social History Housing: Apartment Are you a primary career transition specialist to a significant other at home: No Do you presently have visiting nurse or other home services: No Alcohol intake: former Patient Tobacco Use Status: Former Tobacco user e-Cigarette/Vaping Use: Former Use Second Hand Smoke Exposure: Yes service: No Current occupational status: retired Cognitive needs: No Hearing needs: Yes Vision needs: Yes Questionnaire PHQ-9 Over the last 2 weeks, how often have you been bothered by any of the following problems? 1. Little interest or pleasure in doing things: not at all 2. Feeling down, depressed, or hopeless: not at all 3. Trouble falling or staying asleep, or sleeping too much: not at all 4. Feeling tired or having little energy: not at all 5. Poor appetite or overeating: not at all 6. Feeling bad about yourself - or that you are a failure or have let yourself or your family down: not at all 7. Trouble concentrating on things, such as reading the newspaper or watching television: not at all 8. Moving or speaking so slowly that other people could have noticed. Or the opposite - being so fidgety or restless that you have been moving around a lot more than usual: not at all 9. Thoughts that you would be better off or of hurting yourself in some way: not at all Total score: 0 Depression Screening Interpretation: Negative Depression Screening Done: Yes [id number] - PHQ-9 Billing: Yes Source: Developed by Drs. Kali Quintanilla, Sydney Felipe, Tera Millard and colleagues, with an educational allen from [employer]. Thrive Questionnaire Date Thrive assessed: 07/22/23 I am a: Patient What is your living situation today?: I have a steady place to live Within the past 12 months, did the food you bought not last and you didn't have the money to get more?: Never true Within the past 12 months, did you worry whether your food would run out before you got money to buy more?: Never true Do you have trouble paying for medicines?: No Do you have trouble getting transportation to medical appointments?: No Do you have trouble paying your heating and electricity bill?: No Do you have trouble taking care of your child, family member or friend?: No Do you have trouble with day-to-day activities such as bathing, preparing meals, shopping, managing finances, etc.?: No Are you currently unemployed and looking for a job?: No Are you interested in more education?: No Currently or been in a relationship where the following occur: no concerns reported THRIVE Score: 0 AUDIT C Alcohol Use Questionnaire (AUDIT-C) 1. How often do you have a drink containing alcohol?: Never Total Score: 0 Score Reviewed/Action Taken: Yes AARON-7 AMB Questionnaire AARON-7 Date AARON - 7 assessed: 07/22/23 Feeling nervous, anxious, or on edge: 0 = Not at all Not being able to stop or control worryin = Not at all Worrying too much about different things: 0 = Not at all Trouble relaxin = Not at all Being so restless that it is hard to sit still: 0 = Not at all Becoming easily annoyed or irritable: 0 = Not at all Feeling afraid as if something awful might happen: 0 = Not at all Total AARON-7 score (0-4 normal; 5-9 mild; 10-14 moderate; 15-21 severe): 0 Source: Developed by Drs. Kali Quintanilla, Sydney Felipe, Tera Millard and colleagues, with an educational allen from [employer]. Review of Systems Const Denies chills, Denies fatigue, Denies fever(s) and Denies headache(s) ENT Details: * patient is somewhat hard of hearing and has a tendency to read lips to compensate Denies dysphagia, Denies dizziness, Denies otalgia, Denies headache(s), Reports hearing loss, Denies neck pain, Denies odynophagia and Denies sore throat Card Denies chest pain, Denies palpitations and Denies dyspnea Resp Denies cough and Denies dyspnea GI Denies abdominal pain, Denies constipation, Denies dysphagia, Denies heartburn, Denies diarrhea, Denies nausea, Denies odynophagia and Denies vomiting Reports oliguria (has noticed some slowing of urine stream), Denies dysuria, Denies nocturia, Denies urinary frequency and Denies urinary incontinence Musc Denies back pain, Reports arthralgias (on and off pain in both knees and left hip - worse at night), Denies neck pain and Reports stiffness Skin/Breast Denies rash Neuro Denies dizziness and Denies headache(s) Endo Denies fatigue and Denies palpitations Physical exam (Primary Care) Vital Signs: Last Vital Signs Pulse 63 07/22/23 09:17 BP 110/70 07/22/23 09:17 Pulse Ox 96 07/22/23 09:17 Oxygen Delivery Method Room Air 07/22/23 09:17 BMI result Body Mass Index 25.2 Tobacco/Smoking Status: Tobacco use Status Tobacco use date assessed 07/22/23 07/22/23 09:22 Patient Tobacco Use Status Former Tobacco user 07/22/23 09:22 e-Cigarette/Vaping Use Former Use 07/22/23 09:22 PHQ-9: PHQ-9 Score PHQ-9: Total score 0 07/22/23 09:35 Depression Screening Interpretation: Negative Thrive Assessment: Date of Thrive Assessment Date Thrive assessed 07/22/23 07/22/23 09:22 Currently or been in a relationship where the following occur: no concerns reported Const General: no acute distress and alert HENMT Ears: TM's normal bilaterally and EAC's normal Throat: Yes posterior oropharynx normal and Yes tonsils normal (no TP congestion noted) Neck Neck: Yes no lymphadenopathy and Yes supple Resp Auscultation: clear to auscultation bilaterally, no rales and no wheezes Cardio Rate: regular rate Rhythm: regular rhythm Heart sounds: Murmur heart sound present systolic soft, II/ and at the apex GI Palpation (GI): Soft to palpation, nontender and No hepatosplenomegaly present Auscultation: normal bowel sounds General: Yes no CVA tenderness Back/Spine/Pelvis Back: no CVA tenderness Thoracic/Lumbar Spine: thoracic and lumbar spine normal to inspection Extrem General: Yes no clubbing, cyanosis or edema Right lower extremity: hip/thigh Details: tenderness Location: of the hip and knee Details: tenderness; no swelling Left lower extremity: knee Details: tenderness; no swelling Results Reviewed Results Reviewed: Laboratory Tests 03/20/24 03/20/24 03/20/24 06:38 06:42 06:42 WBC 6.7 Hgb 15.0 Hct 44.2 Plt Count 334 Sodium 142 Potassium 3.8 Creatinine 1.10 Estimated GFR > 60 Fasting Glucose 100 H Calcium 9.5 AST 22 ALT 19 Triglycerides 110 Cholesterol 162 LDL Cholesterol, Calc 95 HDL Cholesterol 45 Vitamin B12 462 25-OH Vitamin D Total 41.9 TSH 1.03 Ur Specific [place] >= 1.030 H Urine Protein Negative Urine Glucose (UA) Negative Urine Blood Negative Urine Nitrite Negative Ur Leukocyte Esterase Negative Assessment and Plan Assessment & Plan (1) Pure hypercholesterolemia: Code(s): E78.00 - Pure hypercholesterolemia, unspecified Plan: Results of his labs done a couple of weeks ago reviewed and discussed with patient - cautioned that his cholesterol levels have increased slightly from previous Reinforced low cholesterol diet Continue Pravastatin 40 mg QD Will recheck his labs and fasting lipids in 6 months for follow up (2) Elevated blood pressure reading: Code(s): R03.0 - Elevated blood-pressure reading, without diagnosis of hypertension Plan: His BP appears to be much better and has remained controlled - he likely has some component of white coat HTN Reinforced low sodium diet - goal is systolic BP of at least 140 mm or less As patient has been asymptomatic and has had no evidence of end-organ disease on his labs (has no proteinuria or microalbuminuria and serum creatinine and GFR are within normal limits), we have held off on starting him on BP meds Patient has also declined offer to start him on BP meds in the past and he does not appear to need any BP meds at present He is reminded to continue monitoring his blood pressure regularly (3) Irritable bowel syndrome (IBS): Code(s): K58.9 - Irritable bowel syndrome without diarrhea Qualifiers: Irritable bowel syndrome type: unspecified Qualified Code(s): K58.9 - Irritable bowel syndrome without diarrhea Plan: Stable; continue Dicyclomine 20 mg TID PRN (4) Impaired fasting glucose: Code(s): R73.01 - Impaired fasting glucose Plan: His FBS has a tendency to run high on his routine labs often - was previously at 118 mg/dl but his FBS a couple of weeks ago was at 100 mg/dl HgbA1c was also normal at 5.3% and 5.5% when checked previously Reinforced low calorie diet/exercise as tolerated Will continue to monitor his FBS and HgbA1c regularly when appropriate (5) History of adenomatous polyp of colon: Code(s): Z86.010 - Personal history of colonic polyps Plan: Was supposed to get a CT colonography done a couple of years ago but patient did not go Repeat colonoscopy done in October 2020 was incomplete due to a sharp angulation encountered at the 35 to 40 cm level that made it risky to continue attempting to advance the scope but patient feels that this was due more to the doctor's fault for not being able to complete the procedure - is not happy about having to go through the prep again and has decided NOT to go for his CT colonography He continues to decline getting another colon exam but is again advised to think about it and to REconsider his decision Discussed again option of doing Cologuard test instead in another year or so if he does not want to go back for a CT colonography or a regular colonoscopy - is advised to think about this OR consider a referral to another provider of his choice for a repeat colonoscopy He continues to decline offer to refer him back for colon cancer screening; declines Cologuard as well (6) Primary osteoarthritis of knees, bilateral: Code(s): M17.0 - Bilateral primary osteoarthritis of knee Plan: Knee x-rays done back in July 2022 revealed (+) mild tricompartmental degenerative changes of both knees; (+) chondrocalcinosis; no acute abnormalities otherwise Continue Nabumetone 500 mg Q AM with food PRN for pain and Gabapentin 600 mg Q HS States that his knee pain have improved with aspiration and cortisone injections with [facility] last year Follow up with orthopedics as scheduled - is advised that he can just call Orthopedics up to schedule another appointment whenever he feels that he needs cortisone injections into his knees again (7) Primary osteoarthritis of left hip: Code(s): M16.12 - Unilateral primary osteoarthritis, left hip Plan: X-rays of the left hip done in July 2022 revealed (+) moderate to severe degenerative changes of the left hip Continue Nabumetone 500 mg Q AM with food PRN for pain and Gabapentin 600 mg Q HS Follow up with [facility] Orth[facility] as scheduled Plan Follow up in 6 months Orders: Orders Lipid Panel 6 Months E78.00 - Pure hypercholesterolemia, unspecified Comprehensive [place]. Panel Fast 6 Months E78.00 - Pure hypercholesterolemia, unspecified Hemoglobin A1c 6 Months R73.01 - Impaired fasting glucose Coding Level of Care Code Est Pt Level 4 (82490) Diagnoses Pure hypercholesterolemia E78.00 Elevated blood pressure reading R03.0 Irritable bowel syndrome, unspecified type K58.9 Irritable bowel syndrome type: unspecified Impaired fasting glucose R73.01 History of adenomatous polyp of colon Z86.010 Primary osteoarthritis of knees, bilateral M17.0 Primary osteoarthritis of left hip M16.12
[2023-07-22 09:17] VITALS: BP 110/70; PULSE 63; O2SAT 96; BMI 25.2
== END 2023-07-22 09:45 | disposition home or self-care (01) ==
PROVIDERS: PCP Internal Medicine; Visit Provider Internal Medicine
DX: E78.00 Pure hypercholesterolemia, unspecified (principal); R03.0 Elevated blood-pressure reading, without diagnosis of hypertension; K58.9 Irritable bowel syndrome, unspecified; R73.01 Impaired fasting glucose; Z86.010 Personal history of colon polyps; M17.0 Bilateral primary osteoarthritis of knee; M16.12 Unilateral primary osteoarthritis, left hip
CPT/HCPCS: 99214

== ENCOUNTER 2024-02-03 06:40 | Outpatient (REF) | payer MEDICARE, SELFPAY ==
[2024-02-03 07:26] LABS: Estimated Average Glucose 117 mg/dL; Hemoglobin A1C 137.3967 umol/L; Hemoglobin A1c % 5.7 % (<6.0); Total Hemoglobin (HGBA1C) 3587.1838 umol/L
[2024-02-03 07:43] LABS: Alanine Aminotransferase 27 U/L (0-40); Alkaline Phosphatase 85 U/L (39-117); Anion Gap 11 (12-20); Aspartate Amino Transferase 24 U/L (5-37); Bilirubin Total 0.4 mg/dL (0.0-1.0); Blood Urea Nitrogen 22 mg/dL (9-16); Carbon Dioxide 26 mmol/L (22-29); Chloride 108 mmol/L (96-108); Cholesterol 142 mg/dL (<200); Estimated Glomerular Filt Rate 57; Glucose Fasting 136 mg/dL (60-99); HDL Cholesterol 40 mg/dL (>40); LDL Cholesterol Calculated 83 mg/dL (<100); Potassium 4.5 mmol/L (3.3-5.1); Sodium 140 mmol/L (135-145); Total Protein 7.3 g/dL (6.5-8.0); Triglycerides 95 mg/dL (<150)
== END 2024-02-03 06:41 | disposition home or self-care (01) ==
LOC: HO.LAB 06:40
PROVIDERS: PCP Internal Medicine; Visit Provider Internal Medicine
DX: E78.00 Pure hypercholesterolemia, unspecified (principal); R73.01 Impaired fasting glucose
CPT/HCPCS: 36415; 80053; 80061; 83036

== ENCOUNTER 2024-02-10 08:47 | Outpatient (AMB) | payer MEDICARE, SELFPAY ==
--- NOTE | 2024-02-10 08:57 | MHC.PC.OV ---
Vital Signs 02/10/24 08:58 Height 5 ft 9 in Weight 173 lb 2 oz BMI 25.6 BP 132/88 Blood Pressure Location Lt brachial Position Sitting Pulse 76 Pulse Source Pulse Oximeter Pulse Oximetry (%) 94 Oxygen Delivery Method Room Air Intake Visit Reasons: hyperlipidemia, IBS, OA, IFG Software Implementation Specialist Required: No Accompanied by: Self / Same As Patient Allergies lactose [LACTOSE] Allergy (Severe, Verified 02/10/24 09:07) DIARHEA, abd pain, bloating, LAUNDRY DETERGENT Adverse Reaction (Mild, Uncoded 02/10/24 09:07) RASH TO UNKNOWN LAUNDRY DETERGENT Medication List - Last Reconciled 02/10/24 by Clayton French MD dicyclomine 20 mg PO TID 30 days gabapentin 600 mg PO BEDTIME 30 days nabumetone 500 mg PO QAM PRN 30 days pravastatin 40 mg PO DAILY 90 days Tobacco use date assessed: 02/10/24 Fall risk assessment: No Falls in past year Last assessed Fall Risk: 02/10/24 Dental Screening Dental Screen Date: 02/10/24 Did you have a dental visit in the last 12 months?: No Did you have a dental problem in the last 6 months where you did not have access to dental care?: No Was dental information given to patient?: No HPI hyperlipidemia, IBS, OA, IFG HPI Details Patient comes in today for his follow up visit States that he feels okay He denies any headaches or dizziness Denies any chest pains, no SOB No nausea/vomiting, no abdominal pain No change in bowel habits noted Patient states that his knee pain and hip pains have been mostly manageable and they have improved a lot with cortisone injections from orthopedics - states that he gets cortisone injections every 3 to 4 months when needed with (+) significant relief of his symptoms Needs a couple of his Rx refilled He had his follow up labs done last week - to discuss his results Would also like to get his flu shot today [facility] Medical History Primary osteoarthritis of left hip Primary osteoarthritis of knees, bilateral Abnormal colonoscopy History of adenomatous polyp of colon Irritable bowel syndrome (IBS) Tubular adenoma of colon Elevated blood pressure reading Pure hypercholesterolemia Surgical History Hx of colonoscopy History of eye surgery Family History Father Prostate cancer Brother Hepatitis Social History Housing: Apartment Are you a primary adult day care worker to a significant other at home: No Do you presently have visiting nurse or other home services: No Alcohol intake: former Patient Tobacco Use Status: Former Tobacco user e-Cigarette/Vaping Use: Former Use Second Hand Smoke Exposure: Yes service: No Current occupational status: retired Cognitive needs: No Hearing needs: Yes Vision needs: Yes Questionnaire PHQ-9 Over the last 2 weeks, how often have you been bothered by any of the following problems? 1. Little interest or pleasure in doing things: not at all 2. Feeling down, depressed, or hopeless: not at all 3. Trouble falling or staying asleep, or sleeping too much: not at all 4. Feeling tired or having little energy: not at all 5. Poor appetite or overeating: not at all 6. Feeling bad about yourself - or that you are a failure or have let yourself or your family down: not at all 7. Trouble concentrating on things, such as reading the newspaper or watching television: not at all 8. Moving or speaking so slowly that other people could have noticed. Or the opposite - being so fidgety or restless that you have been moving around a lot more than usual: not at all 9. Thoughts that you would be better off or of hurting yourself in some way: not at all Total score: 0 Depression Screening Interpretation: Negative Depression Screening Done: Yes 38422 - PHQ-9 Billing: Yes Source: Developed by Drs. Kali Quintanilla, Sydney Felipe, Tera Millard and colleagues, with an educational allen from [employer]. Thrive Questionnaire Date Thrive assessed: 02/10/24 I am a: Patient What is your living situation today?: I have a steady place to live Within the past 12 months, did the food you bought not last and you didn't have the money to get more?: Never true Within the past 12 months, did you worry whether your food would run out before you got money to buy more?: Never true Do you have trouble paying for medicines?: No Do you have trouble getting transportation to medical appointments?: No Do you have trouble paying your heating and electricity bill?: No Do you have trouble taking care of your child, family member or friend?: No Do you have trouble with day-to-day activities such as bathing, preparing meals, shopping, managing finances, etc.?: No Are you currently unemployed and looking for a job?: No Are you interested in more education?: No Please select the resources that you would like help with: None Currently or been in a relationship where the following occur: No concerns reported THRIVE Score: 0 AUDIT C Alcohol Use Questionnaire (AUDIT-C) 1. How often do you have a drink containing alcohol?: Never 3. How often do you have six or more drinks on one occasion?: Never Total Score: 0 Score Reviewed/Action Taken: Yes AARON-7 AMB Questionnaire AARON-7 Date AARON - 7 assessed: 02/10/24 Feeling nervous, anxious, or on edge: 0 = Not at all Not being able to stop or control worryin = Not at all Worrying too much about different things: 0 = Not at all Trouble relaxin = Not at all Being so restless that it is hard to sit still: 0 = Not at all Becoming easily annoyed or irritable: 0 = Not at all Feeling afraid as if something awful might happen: 0 = Not at all Total AARON-7 score (0-4 normal; 5-9 mild; 10-14 moderate; 15-21 severe): 0 Source: Developed by Drs. Kali Quintanilla, Sydney Felipe, Tera Millard and colleagues, with an educational allen from [employer]. Review of Systems Const Denies chills, Denies fatigue, Denies fever(s) and Denies headache(s) ENT Details: * patient is somewhat hard of hearing and has a tendency to read lips to compensate Denies dysphagia, Denies dizziness, Denies otalgia, Denies headache(s), Reports hearing loss, Denies neck pain, Denies odynophagia and Denies sore throat Card Denies chest pain, Denies palpitations and Denies dyspnea Resp Denies cough and Denies dyspnea GI Denies abdominal pain, Denies constipation, Denies dysphagia, Denies heartburn, Denies diarrhea, Denies nausea, Denies odynophagia and Denies vomiting Reports oliguria (has noticed some slowing of urine stream), Denies dysuria, Denies nocturia, Denies urinary frequency and Denies urinary incontinence Musc Denies back pain, Reports arthralgias (on and off pain in both knees and left hip - worse at night), Denies neck pain and Reports stiffness Skin/Breast Denies rash Neuro Denies dizziness and Denies headache(s) Endo Denies fatigue and Denies palpitations Physical exam (Primary Care) Vital Signs: Last Vital Signs Pulse 76 02/10/24 08:58 BP 132/88 02/10/24 08:58 Pulse Ox 94 02/10/24 08:58 Oxygen Delivery Method Room Air 02/10/24 08:58 BMI result Body Mass Index 25.6 Tobacco/Smoking Status: Tobacco use Status Tobacco use date assessed 02/10/24 02/10/24 09:00 Patient Tobacco Use Status Former Tobacco user 02/10/24 09:00 e-Cigarette/Vaping Use Former Use 02/10/24 09:00 PHQ-9: PHQ-9 Score PHQ-9: Total score 0 02/10/24 09:00 Depression Screening Interpretation: Negative Thrive Assessment: Date of Thrive Assessment Date Thrive assessed 02/10/24 02/10/24 09:00 Currently or been in a relationship where the following occur: No concerns reported Const General: no acute distress and alert HENMT Ears: TM's normal bilaterally and EAC's normal Throat: Yes posterior oropharynx normal and Yes tonsils normal (no TP congestion noted) Neck Neck: Yes no lymphadenopathy and Yes supple Thyroid: Thyroid normal Resp Auscultation: clear to auscultation bilaterally, no rales and no wheezes Cardio Rate: regular rate Rhythm: regular rhythm Heart sounds: Murmur heart sound present systolic soft, II/ and at the apex GI Palpation (GI): Soft to palpation and nontender Auscultation: normal bowel sounds General: Yes no CVA tenderness Back/Spine/Pelvis Back: no CVA tenderness Thoracic/Lumbar Spine: No lumbar spinal tenderness Skin Rashes: no rashes Extrem General: Yes no clubbing, cyanosis or edema Right lower extremity: hip/thigh Details: tenderness Location: of the hip and knee Details: tenderness; no swelling Left lower extremity: knee Details: tenderness; no swelling Office Procedures Flu Questionnaire Does the patient have a severe egg allergy?: No Does the patient have severe life threatening allergies?: No Does the patient have a fever or illness today?: No Has the patient ever had Guillain-[place] Syndrome?: No Has the patient ever had any past reaction to a flu shot?: No Immunizations Fluarix Triv [id number] (PF) 45 mcg (15 mcg x 3)/0.5 mL IM syringe Performing Provider: Clayton French MD [facility] Administered by: ELYSE Segundo on 02/10/24 09:07 Dose Route Admin Location Dispensed Lot Number Expiration Date [place] [employer] Devices Inspector/Tester 0.5 mL IM Right Deltoid 0.5 mL [id number] 10/19/24 [id number] [employer] VIS Given Date VIS Provided VIS Publication Date 02/10/24 Single Vaccine 20 Eligibility Eligibility Date Funding Source Not [facility] Eligible 02/10/24 Private Results Reviewed Results Reviewed: Laboratory Tests 02/03/24 06:59 Sodium 140 Potassium 4.5 Creatinine 1.25 Estimated GFR 57 Fasting Glucose 136 H Hemoglobin A1c % 5.7 Calcium 10.0 AST 24 ALT 27 Triglycerides 95 Cholesterol 142 LDL Cholesterol, Calc 83 HDL Cholesterol 40 L Coding Level of Care Code Est Pt Level 4 (02929) Diagnoses Pure hypercholesterolemia E78.00 Elevated blood pressure reading R03.0 Irritable bowel syndrome, unspecified type K58.9 Irritable bowel syndrome type: unspecified Impaired fasting glucose R73.01 History of adenomatous polyp of colon Z86.010 Primary osteoarthritis of knees, bilateral M17.0 Primary osteoarthritis of left hip M16.12 Assessment & Plan Assessment & Plan (1) Pure hypercholesterolemia: Code(s): E78.00 - Pure hypercholesterolemia, unspecified Category: Medical Plan: Results of his labs done last week reviewed and discussed with patient Reinforced low cholesterol diet Continue Pravastatin 40 mg QD Will recheck his labs and fasting lipids in 6 months for follow up (2) Elevated blood pressure reading: Code(s): R03.0 - Elevated blood-pressure reading, without diagnosis of hypertension Category: Medical Plan: His BP appears to be slightly higher than his previous reading again today - he likely has some component of white coat HTN Reinforced low sodium diet - goal is systolic BP of at least 140 mm or less As patient has been asymptomatic and has had no evidence of end-organ disease on his labs (has no proteinuria or microalbuminuria and serum creatinine and GFR are within normal limits), we have held off on starting him on antihypertensives Patient has also declined previous offers to start him on BP meds He is reminded to continue monitoring his blood pressure regularly (3) Irritable bowel syndrome (IBS): Code(s): K58.9 - Irritable bowel syndrome, unspecified Category: Medical Qualifiers: Irritable bowel syndrome type: unspecified Qualified Code(s): K58.9 - Irritable bowel syndrome without diarrhea Plan: Stable; continue Dicyclomine 20 mg TID PRN (Rx refilled) (4) Impaired fasting glucose: Code(s): R73.01 - Impaired fasting glucose Category: Medical Plan: His FBS has a tendency to run high often on his routine labs - it is again high at 136 mg/dl on his recent labs HgbA1c was at 5.7% last week - was at 5.3% and 5.5% when previously checked Reinforced low calorie diet/exercise as tolerated Will continue to monitor his FBS and HgbA1c regularly when appropriate (5) History of adenomatous polyp of colon: Code(s): Z86.010 - Personal history of colon polyps Category: Medical Plan: He was supposed to get a CT colonography done a couple of years ago but patient did not go Repeat colonoscopy done in October 2020 was incomplete, reportedly due to a sharp angulation encountered at the 35 to 40 cm level that made it risky to continue attempting to advance the scope but patient feels that this was due more to the doctor's fault for not being able to complete the procedure - is not happy about having to go through the prep again and has adamantly refused to go for CT colonography He continues to decline getting another colon exam but is again advised to think about it and to REconsider his decision Discussed again option of doing Cologuard test instead in another year or so if he does not want to go back for a CT colonography or a regular colonoscopy - is advised to think about this OR consider a referral to another provider of his choice for a repeat colonoscopy He continues to decline offer to refer him back for colon cancer screening; declines Cologuard as well (6) Primary osteoarthritis of knees, bilateral: Code(s): M17.0 - Bilateral primary osteoarthritis of knee Category: Medical Plan: Knee x-rays done back in July 2022 revealed (+) mild tricompartmental degenerative changes of both knees; (+) chondrocalcinosis; no acute abnormalities otherwise Continue Nabumetone 500 mg Q AM with food PRN for pain and Gabapentin 600 mg Q HS States that his knee pain have improved with aspiration and cortisone injections with [facility] last year Follow up with orthopedics as scheduled - is advised that he can just call Orthopedics up to schedule another appointment whenever he feels that he needs cortisone injections into his knees again (7) Primary osteoarthritis of left hip: Code(s): M16.12 - Unilateral primary osteoarthritis, left hip Category: Medical Plan: X-rays of the left hip done in July 2022 revealed (+) moderate to severe degenerative changes of the left hip Continue Nabumetone 500 mg Q AM with food PRN for pain and Gabapentin 600 mg Q HS Follow up with [facility] Orthopedics as scheduled Plan As requested, flu vaccine given to patient today Follow up in 6 months Orders: Orders Influenza [id number] Immunization Today Z23 - Encounter for immunization Comprehensive [place]. Panel Fast 6 Months E78.00 - Pure hypercholesterolemia, unspecified Lipid Panel 6 Months E78.00 - Pure hypercholesterolemia, unspecified UA CC w/rflx Micro + Cult 6 Months R30.0 - Dysuria Vitamin D 25-OH Total 6 Months E55.9 - Vitamin D deficiency, unspecified Complete Blood Count Auto Diff 6 Months D64.9 - Anemia, unspecified TSH reflex Free T4 6 Months E78.00 - Pure hypercholesterolemia, unspecified Hemoglobin A1c 6 Months R73.01 - Impaired fasting glucose Medications: Refilled dicyclomine 20 mg PO TID 30 days 90 tabs 5RF nabumetone Take with food 500 mg PO QAM 30 days PRN 30 tabs 3RF joint pains
[2024-02-10 08:58] VITALS: BP 132/88; PULSE 76; O2SAT 94; BMI 25.6
== END 2024-02-10 09:21 | disposition home or self-care (01) ==
PROVIDERS: PCP Internal Medicine; Visit Provider Internal Medicine
DX: E78.00 Pure hypercholesterolemia, unspecified (principal); R03.0 Elevated blood-pressure reading, without diagnosis of hypertension; K58.9 Irritable bowel syndrome, unspecified; R73.01 Impaired fasting glucose; Z86.0100 Personal history of colon polyps, unspecified; M17.0 Bilateral primary osteoarthritis of knee; M16.12 Unilateral primary osteoarthritis, left hip

== ENCOUNTER → 2024-02-10 08:47 | Outpatient (BNVA) | payer MEDICARE, SELFPAY | PROVIDERS: PCP Internal Medicine; Visit Provider Internal Medicine | DX: E78.00 Pure hypercholesterolemia, unspecified (principal); R03.0 Elevated blood-pressure reading, without diagnosis of hypertension; K58.9 Irritable bowel syndrome, unspecified; Z23 Encounter for immunization; R73.01 Impaired fasting glucose; M17.0 Bilateral primary osteoarthritis of knee; M16.12 Unilateral primary osteoarthritis, left hip; Z79.899 Other long term (current) drug therapy; Z86.0101 Personal history of adenomatous and serrated colon polyps | CPT/HCPCS: 90471; 90656; 96127; 99212 ==

== ENCOUNTER 2024-06-23 06:50 | Outpatient (REF) | payer MEDICARE, SELFPAY ==
[2024-06-23 07:17] LABS: MANUAL DIFF FLAG NO
[2024-06-23 07:35] LABS: Basophils Absolute Auto 0.1 X10*3/uL (0.0-0.2); Basophils Percent Auto 0.6 % (0-2); Eosinophils Absolute Auto 0.4 X10*3/uL (0.0-0.4); Eosinophils Percent Auto 4.8 % (0-4); Hematocrit 45.5 % (42.0-52.0); Hemoglobin 14.9 g/dl (14.0-18.0); Imm Gran Abs Auto 0.02 X10*3/uL (0.00-0.03); Imm Gran Pct Auto 0.3 % (0.0-0.4); Lymphocytes Absolute Auto 2.1 X10*3/uL (1.2-4.9); Lymphocytes Percent Auto 26.5 % (20-40); Mean Corpuscular HGB Conc 32.7 g/dl (31.0-36.0); Mean Corpuscular Hemoglobin 31.8 pg (27.0-33.0); Mean Platelet Volume 8.8 fL (9.4-12.4); Monocytes Absolute Auto 0.7 X10*3/uL (0.1-1.2); Monocytes Percent Auto 8.6 % (2-11); Neutrophils Absolute Auto 4.6 x10*3/uL (2.0-8.3); Neutrophils Percent Auto 59.2 % (45-73); Platelet Count 328 X10*3/uL (160-400); Red Blood Count 4.69 X10*6/uL (4.60-5.80); Red Cell Distribution Width 12.9 % (11.0-16.0); White Blood Count 7.8 X10*3/uL (4.8-10.8)
[2024-06-23 07:43] LABS: Estimated Average Glucose 114 mg/dL; Hemoglobin A1C 147.3815 umol/L; Hemoglobin A1c % 5.6 % (<6.0); Total Hemoglobin (HGBA1C) 3891.0281 umol/L
[2024-06-23 07:48] LABS: Appearance Urine Clear; Color Urine Dark Yellow; Glucose Urine UA Negative (Negative); Leukocyte Esterase Urine Negative (Negative); Nitrite Urine Negative (Negative); Specific Gravity - Urine >= 1.030 (1.005-1.025); UMIC TRIGGER UACC YES; Urine Blood Small (1+) (Negative); Urine Ketones Trace mg/dL (Negative); Urine Protein Trace mg/dL (Neg-Trace)
[2024-06-23 07:56] LABS: Bacteria Urine None Seen (None Seen); Hyaline Casts Urine 0-2 /LPF (0-2); Squamous Epithelial Cell Urine 0-2 /HPF (0-2); WBC Urine 0-5 /HPF (0-5)
[2024-06-23 08:18] LABS: Alanine Aminotransferase 22 U/L (0-40); Alkaline Phosphatase 93 U/L (39-117); Anion Gap 11 (12-20); Aspartate Amino Transferase 26 U/L (5-37); Bilirubin Total 0.4 mg/dL (0.0-1.0); Blood Urea Nitrogen 22 mg/dL (9-16); Calcium 9.7 mg/dL (8.4-10.2); Carbon Dioxide 27 mmol/L (22-29); Chloride 112 mmol/L (96-108); Cholesterol 144 mg/dL (<200); Estimated Glomerular Filt Rate > 60; Glucose Fasting 104 mg/dL (60-99); HDL Cholesterol 42 mg/dL (>40); LDL Cholesterol Calculated 75 mg/dL (<100); Potassium 4.8 mmol/L (3.3-5.1); Sodium 145 mmol/L (135-145); Total Protein 7.8 g/dL (6.5-8.0); Triglycerides 138 mg/dL (<150)
[2024-06-23 08:36] LABS: TSH reflex Free T4 0.73 uIU/mL (0.32-4.0)
== END 2024-06-23 06:51 | disposition home or self-care (01) ==
LOC: HO.LAB 06:50
PROVIDERS: PCP Internal Medicine; Visit Provider Internal Medicine
DX: D64.9 Anemia, unspecified (principal); E78.00 Pure hypercholesterolemia, unspecified; E55.9 Vitamin D deficiency, unspecified; R73.01 Impaired fasting glucose
CPT/HCPCS: 36415; 80053; 80061; 81001; 82306; 83036; 84443; 85025

== ENCOUNTER 2024-07-07 08:16 | Outpatient (AMB) | payer MEDICARE, SELFPAY ==
[2024-07-07 08:24] VITALS: BP 136/82; PULSE 74; RESP 16; TEMP 37.3; O2SAT 96; BMI 25.0
--- NOTE | 2024-07-07 08:24 | A.OFFPC_ITS ---
Vital Signs 07/07/24 08:24 Height 5 ft 9 in Weight 169 lb BMI 25.0 BP 136/82 Blood Pressure Location Lt brachial Position Sitting Respiration 16 Pulse 74 Pulse Source Pulse Oximeter Temp 99.1 F Temp Source Oral Pulse Oximetry (%) 96 Oxygen Delivery Method Room Air Intake Visit Reasons: hyperlipidemia, IFG, elevated BP, IBS, OA Phone Counselor Required: No Accompanied by: Friend Allergies lactose [LACTOSE] Allergy (Severe, Verified 07/07/24 08:38) DIARHEA, abd pain, bloating, LAUNDRY DETERGENT Adverse Reaction (Mild, Uncoded 07/07/24 08:38) RASH TO UNKNOWN LAUNDRY DETERGENT Medication List - Last Reconciled 07/07/24 by KIAH Alvarado dicyclomine 20 mg PO TID 30 days gabapentin 600 mg PO BEDTIME 30 days nabumetone 500 mg PO QAM PRN 30 days pravastatin 40 mg PO DAILY 90 days Tobacco use date assessed: 07/07/24 Fall risk assessment: No Falls in past year Last assessed Fall Risk: 07/07/24 Dental Screening Dental Screen Date: 07/07/24 Did you have a dental visit in the last 12 months?: No Did you have a dental problem in the last 6 months where you did not have access to dental care?: No HPI hyperlipidemia, IFG, elevated BP, IBS, OA HPI Details Patient is a 73-year-old presenting for follow up of chronic conditions The patient reports that he is not concern about his labs because he is not going do anything different he wants his right groin to be checked out Reports that the swelling goes and come, and the area hurts intermittently depending on what he is doing Denies SOB, or ches pain right groin inguinal hernia-reducible and hurts sometimes reports both knees and hips pain-hx of osteoarthritis of the all these joints and the patient would like follow x-rays to referral to orthopedics. [facility] Medical History Primary osteoarthritis of left hip Primary osteoarthritis of knees, bilateral Abnormal colonoscopy History of adenomatous polyp of colon Irritable bowel syndrome (IBS) Tubular adenoma of colon Elevated blood pressure reading Pure hypercholesterolemia Surgical History Hx of colonoscopy History of eye surgery Family History Father Prostate cancer Brother Hepatitis Social History Housing: Apartment Are you a primary wild animal caretaker to a significant other at home: No Do you presently have visiting nurse or other home services: No Alcohol intake: former Patient Tobacco Use Status: Former Tobacco user e-Cigarette/Vaping Use: Former Use Second Hand Smoke Exposure: Yes service: No Current occupational status: retired Cognitive needs: No Hearing needs: Yes Vision needs: Yes Questionnaire PHQ-9 Over the last 2 weeks, how often have you been bothered by any of the following problems? 1. Little interest or pleasure in doing things: not at all 2. Feeling down, depressed, or hopeless: not at all 3. Trouble falling or staying asleep, or sleeping too much: not at all 4. Feeling tired or having little energy: not at all 5. Poor appetite or overeating: not at all 6. Feeling bad about yourself - or that you are a failure or have let yourself or your family down: not at all 7. Trouble concentrating on things, such as reading the newspaper or watching television: not at all 8. Moving or speaking so slowly that other people could have noticed. Or the opposite - being so fidgety or restless that you have been moving around a lot more than usual: not at all 9. Thoughts that you would be better off or of hurting yourself in some way: not at all Total score: 0 Depression Screening Interpretation: Negative Depression Screening Done: Yes 31177 - PHQ-9 Billing: Yes Source: Developed by Drs. Kali Quintanilla, Sydney Felipe, Tera Millard and colleagues, with an educational allen from [email or web address]. Thrive Questionnaire Date Thrive assessed: 07/07/24 I am a: Patient What is your living situation today?: I have a steady place to live Within the past 12 months, did the food you bought not last and you didn't have the money to get more?: Never true Within the past 12 months, did you worry whether your food would run out before you got money to buy more?: Never true Do you have trouble paying for medicines?: No Do you have trouble getting transportation to medical appointments?: No Do you have trouble paying your heating and electricity bill?: No Do you have trouble taking care of your child, family member or friend?: No Do you have trouble with day-to-day activities such as bathing, preparing meals, shopping, managing finances, etc.?: No Are you currently unemployed and looking for a job?: No Are you interested in more education?: No Please select the resources that you would like help with: None Currently or been in a relationship where the following occur: No concerns reported THRIVE Score: 0 AUDIT C Alcohol Use Questionnaire (AUDIT-C) 1. How often do you have a drink containing alcohol?: Never 3. How often do you have six or more drinks on one occasion?: Never Total Score: 0 Score Reviewed/Action Taken: Yes AARON-7 AMB Questionnaire AARON-7 Date AARON - 7 assessed: 07/07/24 Feeling nervous, anxious, or on edge: 0 = Not at all Not being able to stop or control worryin = Not at all Worrying too much about different things: 0 = Not at all Trouble relaxin = Not at all Being so restless that it is hard to sit still: 0 = Not at all Becoming easily annoyed or irritable: 0 = Not at all Feeling afraid as if something awful might happen: 0 = Not at all Total AARON-7 score (0-4 normal; 5-9 mild; 10-14 moderate; 15-21 severe): 0 Source: Developed by Drs. Kali Quintanilla, Sydney Felipe, Tera Millard and colleagues, with an educational allen from [email or web address]. AARON-7 Assessment Billing AARON-7 Assessment Tool: AARON-7 Assessment 20816 Review of Systems Const Denies headache(s) Eyes Denies loss of vision ENT Denies vertigo, Denies dizziness, Denies headache(s) and Denies sore throat Card Denies chest pain, Denies leg edema and Denies lightheadedness Resp Denies cough, Denies hemoptysis and Denies wheezing GI Denies abdominal pain, Denies melena, Denies constipation, Denies diarrhea, Denies vomiting and Reports other (Right groin bulging) Denies dysuria, Denies urinary frequency, Denies urinary urgency and Reports other (bulging in the right groin) Musc Reports arthralgias (bilateral hip pain and bilateral knee pain), Denies joint swelling, Denies numbness and Denies tingling Neuro Denies Abnormal speech present, Denies behavioral changes, Denies vertigo, Denies dizziness, Denies headache(s), Denies loss of vision, Denies memory loss, Denies numbness and Denies tingling Psych Denies anxiety, Denies behavioral changes, Denies depression, Denies memory loss and Denies panic attacks Amilcar/Lymph Denies easy bleeding and Denies easy bruising Aller/Immun Denies wheezing Physical exam (Primary Care) Vital Signs: Last Vital Signs Temp 99.1 F 07/07/24 08:24 Pulse 74 07/07/24 08:24 Resp 16 07/07/24 08:24 BP 136/82 07/07/24 08:24 Pulse Ox 96 07/07/24 08:24 Oxygen Delivery Method Room Air 07/07/24 08:24 BMI result Body Mass Index 25.0 Tobacco/Smoking Status: Tobacco use Status Tobacco use date assessed 07/07/24 07/07/24 08:32 Patient Tobacco Use Status Former Tobacco user 07/07/24 08:32 e-Cigarette/Vaping Use Former Use 07/07/24 08:32 PHQ-9: PHQ-9 Score PHQ-9: Total score 0 07/07/24 08:53 Depression Screening Interpretation: Negative Thrive Assessment: Date of Thrive Assessment Date Thrive assessed 07/07/24 07/07/24 08:32 Currently or been in a relationship where the following occur: No concerns reported Const General: healthy appearing, no acute distress, alert and awake Nutritional Appearance: well nourished Orientation/consciousness: oriented to person, oriented to place and oriented to time HENMT Ears: TM's normal bilaterally General nose exam: Normal nasal mucous membranes and turbinates present Eyes Conjunctivae: conjunctivae normal Sclerae: sclerae normal Pupils: Equal, round and reactive pupils present Neck Neck: Yes no lymphadenopathy and Yes no JVD Thyroid: Thyroid normal Carotids: no bruits Resp Effort & Inspection: normal respiratory effort and not tachypneic Auscultation: no crackles, no rales, no rhonchi and no wheezes Cardio Rate: regular rate Rhythm: regular rhythm Heart sounds: no murmurs and normal S1 and S2 GI Palpation (GI): Soft to palpation, nontender, no hepatomegaly and no splenomegaly Auscultation: normal bowel sounds Rectal Exam - Male: Yes mass (right groin inducible hernia) General: Yes no CVA tenderness Back/Spine/Pelvis Back: no CVA tenderness Skin General skin exam: no rashes or lesions noted and dry skin Neuro General: oriented to person, oriented to place and oriented to time Cranial nerves: Yes Equal, round and reactive pupils present Speech: No Abnormal speech present Gait exam (Neuro): Normal gait present Motor exam (neuro): no tremor noted Extrem Right upper extremity: full ROM Left upper extremity: full ROM Right lower extremity: full ROM and knee Details: tenderness Location: of the pre-patellar area; no edema Left lower extremity: full ROM and knee Details: tenderness Location: of the medial joint line and of the pre-patellar area; no edema Psych Mental Status: mental status grossly normal Speech and movement: Normal speech and movement present Affect: normal affect Attitude: cooperative Thought process: Normal thought process present Results Reviewed Results Reviewed: Laboratory Tests 06/23/24 06/23/24 07:14 07:15 WBC 7.8 RBC 4.69 Hgb 14.9 Hct 45.5 MCV 97.0 Plt Count 328 Sodium 145 Potassium 4.8 Chloride 112 H Carbon Dioxide 27 Anion Gap 11 L BUN 22 H Creatinine 0.97 Estimated GFR > 60 Fasting Glucose 104 H Hemoglobin A1c % 5.6 Calcium 9.7 Total Bilirubin 0.4 AST 26 ALT 22 Alkaline Phosphatase 93 Triglycerides 138 Cholesterol 144 LDL Cholesterol, Calc 75 HDL Cholesterol 42 25-OH Vitamin D Total 44.0 TSH 0.73 Urine Color Dark Yellow Urine Appearance Clear Urine pH 5.0 Ur Specific [place] >= 1.030 H Urine Protein Trace Urine Glucose (UA) Negative Urine Ketones Trace Urine Blood Small (1+) H Urine Nitrite Negative Ur Leukocyte Esterase Negative Urine RBC 11-20 H Urine WBC 0-5 Ur Squamous Epith Cells 0-2 Urine Bacteria None Seen Hyaline Casts 0-2 Coding Level of Care Code Est Pt Level 4 (36527) Diagnoses Inguinal hernia, right K40.90 Primary osteoarthritis of left hip M16.12 Primary osteoarthritis of knees, bilateral M17.0 Right hip pain M25.551 Impaired fasting glucose R73.01 Irritable bowel syndrome, unspecified type K58.9 Irritable bowel syndrome type: unspecified Elevated blood pressure reading R03.0 Pure hypercholesterolemia E78.00 Additional Codes AARON-7 Assessment Billing - AARON-7 Assessment Tool: AARON-7 Assessment 52009 ([id number]) PHQ-9 - 52457 - PHQ-9 Billing: Yes ([id number]) Time Spent (min) 38 Assessment & Plan Assessment & Plan (1) Inguinal hernia, right: Code(s): K40.90 - Unilateral inguinal hernia, without obstruction or gangrene, not specified as recurrent Category: Medical Plan: right groin inducible bulging, intermittent pain depending on what he is doing. Will order a groin US and refer the patient to surgery (2) Primary osteoarthritis of left hip: Code(s): M16.12 - Unilateral primary osteoarthritis, left hip Category: Medical Plan: History of osteoarthritis, follow up x-ray ordered. Continue gabapentin 600 mg at bedtime and nabumetone 500 mg daily p.r.n. We will refer the patient to Orthopedics (3) Primary osteoarthritis of knees, bilateral: Code(s): M17.0 - Bilateral primary osteoarthritis of knee Category: Medical Plan: History of osteoarthritis, follow up x-ray ordered. Continue gabapentin 600 mg at bedtime and nabumetone 500 mg daily p.r.n. We will refer the patient to Orthopedics (4) Right hip pain: Code(s): M25.551 - Pain in right hip Category: Medical Plan: History of osteoarthritis, follow up x-ray ordered. Continue gabapentin 600 mg at bedtime and nabumetone 500 mg daily p.r.n. We will refer the patient to Orthopedics (5) Impaired fasting glucose: Code(s): R73.01 - Impaired fasting glucose Category: Medical Plan: A1c 5.6%. Reinforced low sugar/carbohydrate diet. Patient reports that he is not concerned about the labs because he is not going to do anything different (6) Irritable bowel syndrome (IBS): Code(s): K58.9 - Irritable bowel syndrome, unspecified Category: Medical Qualifiers: Irritable bowel syndrome type: unspecified Qualified Code(s): K58.9 - Irritable bowel syndrome without diarrhea Plan: Reinforced dietary restriction. Continue dicyclomine 20 mg t.i.d. (7) Elevated blood pressure reading: Code(s): R03.0 - Elevated blood-pressure reading, without diagnosis of hypertension Category: Medical Plan: Blood pressure within goal. Reinforced low-sodium diet (8) Pure hypercholesterolemia: Code(s): E78.00 - Pure hypercholesterolemia, unspecified Category: Medical Plan: Cholesterol within goal. Reinforced low-cholesterol diet and activity as tolerated Continue pravastatin 40 mg daily Orders: Orders US abdomen limited 07/07/24 K40.90 - Unilateral inguinal hernia, without obst ruction or gangrene, not specified as recurrent Comprehensive [place]. Panel Fast 4 Months Z86.010 - Personal history of colon polyps, K58.9 - Irritable bowel syndrome, unspecified, R03.0 - Elevated blood- pressure reading, without diagnosis of hypertension, E78.00 - Pure hypercholesterolemia, unspecified Vitamin D 25-OH Total 4 Months Z86.010 - Personal history of colon polyps, K58.9 - Irritable bowel syndrome, unspecified, R03.0 - Elevated blood-pressure reading, without diagnosis of hypertension, E78.00 - Pure hypercholesterolemia, unspecified UA CC w/rflx Micro + Cult 4 Months Z86.010 - Personal history of colon polyps, K58.9 - Irritable bowel syndrome, unspecified, R03.0 - Elevated blood-pressure reading, without diagnosis of hypertension, E78.00 - Pure hypercholesterolemia, unspecified Lipid Panel 4 Months Z86.010 - Personal history of colon polyps, K58.9 - Irritable bowel syndrome, unspecified, R03.0 - Elevated blood-pressure reading, without diagnosis of hypertension, E78.00 - Pure hypercholesterolemia, unspecified Glucose Fasting 4 Months Z86.010 - Personal history of colon polyps, K58.9 - Irritable bowel syndrome, unspecified, R03.0 - Elevated blood-pressure reading, without diagnosis of hypertension, E78.00 - Pure hypercholesterolemia, un specified XR knee LT 3V 07/08/24 M17.0 - Bilateral primary osteoarthritis of knee XR knee RT 3V 07/08/24 M17.0 - Bilateral primary osteoarthritis of knee XR hip RT min 2V 07/08/24 M25.551 - Pain in right hip XR hip LT min 2V 07/08/24 M16.12 - Unilateral primary osteoarthritis, left hip Complete Blood Count Auto Diff 4 Months Z86.010 - Personal history of colon polyps, K58.9 - Irritable bowel syndrome, unspecified, R03.0 - Elevated blood- pressure reading, without diagnosis of hypertension, E78.00 - Pure hypercholesterolemia, unspecified TSH reflex Free T4 4 Months Z86.010 - Personal history of colon polyps, K58.9 - Irritable bowel syndrome, unspecified, R03.0 - Elevated blood-pressure reading, without diagnosis of hypertension, E78.00 - Pure hypercholesterolemia, unspecified Hemoglobin A1c 4 Months Z86.010 - Personal history of colon polyps, K58.9 - Irritable bowel syndrome, unspecified, R03.0 - Elevated blood-pressure reading, without diagnosis of hypertension, E78.00 - Pure hypercholesterolemia, unspecified
== END 2024-07-07 09:08 | disposition home or self-care (01) ==
LOC: HO.HMCH 08:16
PROVIDERS: PCP Internal Medicine
DX: K40.90 Unilateral inguinal hernia, without obstruction or gangrene, not specified as recurrent (principal); M16.12 Unilateral primary osteoarthritis, left hip; M17.0 Bilateral primary osteoarthritis of knee; M25.551 Pain in right hip; R73.01 Impaired fasting glucose; K58.9 Irritable bowel syndrome, unspecified; R03.0 Elevated blood-pressure reading, without diagnosis of hypertension; E78.00 Pure hypercholesterolemia, unspecified

== ENCOUNTER → 2024-07-07 08:16 | Outpatient (BNVA) | payer MEDICARE, SELFPAY | PROVIDERS: PCP Internal Medicine | DX: K40.90 Unilateral inguinal hernia, without obstruction or gangrene, not specified as recurrent (principal); M16.12 Unilateral primary osteoarthritis, left hip; M17.0 Bilateral primary osteoarthritis of knee; M25.551 Pain in right hip; R73.01 Impaired fasting glucose; K58.9 Irritable bowel syndrome, unspecified; R03.0 Elevated blood-pressure reading, without diagnosis of hypertension; E78.00 Pure hypercholesterolemia, unspecified | CPT/HCPCS: 96127; 99212 ==

== ENCOUNTER 2024-07-08 07:43 | Outpatient (REF) | payer MEDICARE, SELFPAY ==
--- NOTE | ~2024-07-08 | XR_ITS ---
CLINICAL HISTORY: M17.0 - Bilateral primary osteoarthritis of knee 3 view bilateral knee Comparison: None Findings: Bones intact. No dislocations. Small tricompartment osteophytes with medial and lateral chondrocalcinosis. Mild medial joint space loss. No joint effusion. No radiopaque foreign body. IMPRESSION: 1. Mild tricompartment osteoarthropathy. Chondrocalcinosis. This document has been electronically signed by: Bambi Prabhakar MD on 07/09/2024 09:31:01
--- NOTE | ~2024-07-08 | XR_ITS ---
CLINICAL HISTORY: M17.0 - Bilateral primary osteoarthritis of knee 3 view bilateral knee Comparison: None Findings: No fractures or dislocations. Medial and lateral compartment chondrocalcinosis. Tiny osteophytes. Mild medial joint space loss. No joint effusion. No radiopaque foreign body. Partially visualized skin lesion in the posterior calf IMPRESSION: 1. Chondrocalcinosis. Mild tricompartment osteoarthropathy. This document has been electronically signed by: Bambi Prabhakar MD on 07/09/2024 09:30:32
--- NOTE | ~2024-07-08 | XR_ITS ---
CLINICAL HISTORY: M25.551 - Pain in right hip 2 view right hip Comparison: None Findings: The bones are intact. Mild superior joint space loss without osseous remodeling or significant subchondral sclerosis. The soft tissues are unremarkable. IMPRESSION: Mild joint space loss. This document has been electronically signed by: Bambi Prabhakar MD on 07/09/2024 09:30:28
--- NOTE | ~2024-07-08 | XR_ITS ---
CLINICAL HISTORY: M16.12 - Unilateral primary osteoarthritis, left hip 2 view left hip Comparison: CR/SR - XR HIP LT MIN 2V - 08/17/2022 08:08 AM EDT Findings: No acute fracture or dislocation. [id number] joint space loss superiorly with subchondral sclerosis and cyst formation. There is mild osseous remodeling of the femoral head. The soft tissues are unremarkable. IMPRESSION: Severe degenerative change at the left hip, slightly progressed. This document has been electronically signed by: Bambi Prabhakar MD on 07/09/2024 09:36:07
== END 2024-07-08 07:44 | disposition home or self-care (01) ==
LOC: HO.XRAY 07:43
PROVIDERS: PCP Internal Medicine
DX: M17.0 Bilateral primary osteoarthritis of knee (principal); M25.551 Pain in right hip; M16.12 Unilateral primary osteoarthritis, left hip
CPT/HCPCS: 73502; 73562

== ENCOUNTER → 2024-07-08 07:47 | Outpatient (BNV) | payer MEDICARE, SELFPAY | PROVIDERS: PCP Internal Medicine; Visit Provider Radiology Diagnostic Radiology | DX: M16.12 Unilateral primary osteoarthritis, left hip (principal); M25.551 Pain in right hip; M17.0 Bilateral primary osteoarthritis of knee | CPT/HCPCS: 73502; 73562 ==

== ENCOUNTER 2024-07-27 12:56 | Outpatient (AMB) | payer MEDICARE, SELFPAY ==
--- NOTE | 2024-07-27 13:02 | A.OFFVIS_ITS ---
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 Patient was seen by his PCP, x-rays were ordered and referred to orthopedics. Patient reports that he was given a cortisone injection about 2 years ago which has provided him with relief. Currently his pain is located at the anterior aspect of knee. Finds some relief with Tylenol and Motrin, he also uses voltarin cream which provides temporary relief. He also mentions having hip pain. He is requesting cortisone injections. Allergies lactose [LACTOSE] Allergy (Severe, Verified 07/27/24 13:03) DIARHEA, abd pain, bloating, LAUNDRY DETERGENT Adverse Reaction (Mild, Uncoded 07/27/24 13:03) RASH TO UNKNOWN LAUNDRY DETERGENT Medication List - Last Reconciled 07/27/24 by Ryan Knowles PA-C dicyclomine 20 mg PO TID 30 days gabapentin 600 mg PO BEDTIME 30 days nabumetone 500 mg PO QAM PRN 30 days pravastatin 40 mg PO DAILY 90 days HPI HPI PHARM TECH- B/L knee pain, req injections: Details: The patient is a 73-year-old male presenting with bilateral knee pain . He previously received a left knee injection two years ago, which provided good but temporary relief. The pain manifests most acutely during stair climbing and extended walking, making daily activities challenging. The patient avoids putting weight on the right foot while ascending stairs. [facility] Medical History Primary osteoarthritis of left hip Primary osteoarthritis of knees, bilateral Abnormal colonoscopy History of adenomatous polyp of colon Irritable bowel syndrome (IBS) Tubular adenoma of colon Elevated blood pressure reading Pure hypercholesterolemia Surgical History Hx of colonoscopy History of eye surgery Family History Father Prostate cancer Brother Hepatitis Social History Housing: Apartment Are you a primary healthcare business analyst to a significant other at home: No Do you presently have visiting nurse or other home services: No Alcohol intake: former Patient Tobacco Use Status: Former Tobacco user e-Cigarette/Vaping Use: Former Use Second Hand Smoke Exposure: Yes service: No Current occupational status: retired Cognitive needs: No Hearing needs: Yes Vision needs: Yes Physical Exam Vital Signs: BMI result Body Mass Index 25.0 Office Procedures AMB Joint Injection/Aspiration Joint Injection/Aspiration Primary Site: right knee Secondary Site: left knee Prep: site was prepped using aseptic technique, ethochloride spray was applied and injection warnings given Injected: 40 mg of, DepoMedrol, with 8 mL of, 1% plain lidocaine and in the joint Approach Used: anterolateral Procedure: The patient tolerated the procedure well and there was some relief with the local anesthesia Coding 88131 - Glenohumeral/Tronchanteric Bursa/Intraarticular Procedure code (CPT) selection complete Results Reviewed Results Reviewed: - Imaging Findings: - -Knee x-rays indicate joint space narrowing and calcification of the meniscus. - Hip x-rays reveal increased arthritis in the left hip. Assessment & Plan Assessment & Plan (1) Osteoarthritis of knees, bilateral: Code(s): M17.0 - Bilateral primary osteoarthritis of knee Category: Medical Plan: I reviewed with the patient the presence of osteoarthritis in his knees and hips, underscoring the primary focus on bilateral knee pain that significantly impacts his function. We discussed the benefits of corticosteroid injections for providing temporary relief, the mechanism behind the injections, and possible adverse effects such as infection, temporary pain increase, and flare reactions. The patient consented to a bilat knee injection which was tolerated well. The patient was informed that his response to this intervention will guide further discussion on management. He decided to proceed based on previous good response and agreed to monitor symptom changes to assess necessity for additional treatments in the future. Coding Level of Care Code New Pt Level 3 (73620) Complex EM visit Add On G2211 Diagnoses Osteoarthritis of knees, bilateral M17.0 CPT Codes Coding - Joint 7: 44309 - Glenohumeral/Tronchanteric Bursa/Intraarticular ([id number])
[2024-07-27 13:06] VITALS: BMI 25.0
--- OUTSIDE RECORDS SUMMARY | 2024-07-27 15:22 | XMS_ITS | Patient Health Record ---
Author Organization [facility] Address [address] [place] [address] Care Team Providers Care Visual Journalist Name Role Phone Terry French MDneth Primary Care Provider John Kay Unavailable [phone] Allergies Allergen (clinical drug ingredient) Drug/Non Drug Allergy documented on EMR Reaction Allergy Type Onset Date Status Lactose Unknown Drug Allergy Active Reason For Referral No Information Medications Medication SIG (Take, Route, Frequency, Duration) Notes Start Date End Date Status Pravastatin Sodium 40 MG 1 tablet Orally Once a day for 30 day(s) Active Antibiotic Not-Takin g Dicyclomine HCl 20 MG 1 tablet Orally Th ree times a day for 30 day(s) Active Keflex 500 MG 1 capsule Orally bid for 10 days 03/21/2020 Active Social History Tobacco Use: Social History Observation Description Date Details (start date - stop date) Former Smoker NA - NA Tobacco Use/Smoking Question Answer Notes Are you a: former smoker Additional Findings: Tobacco Non-User Current no n-smoker Alcohol Screen Question Answer Notes Did you have a drink containing alcohol in the p ast year? No Points 0 Interpretation Negative Tobacco use other than smoking: Question Answer Notes Are you an other tobacco user? No Problems Problem Type SNOMED Code ICD Code Onset Dates Problem Status W/U Status Risk Notes Problem Acquired hallux valgus (87703129) Hallux valgus (acquired), left foot (M20.12) Active confirmed Problem Non-pressure chronic ulcer of other part of right foot with fat layer exposed (L97.512) Active confirmed Problem Chronic ulcer of foot (915371211) Non-pressure chronic ulcer of other part of left foot with fat layer exposed (L97.522) Active confirmed Problem Acquired hallux valgus (84009099) Hallux valgus (acquired), right foot (M20.11) Active confirmed Plan Of Treatment Pending Test Test Name Order Date [id number] SKIN/TISSUE 09/29/2020 01766 I&D ABSCESS- SIMPLE,SINGLE 020 Insurance Providers Payer Name Payer Address Payer Phone Subscriber Number Group Number Insured Name Patient Relationship to Insured Coverage Start Date Coverage End Date [facility] [address] [place] [address] [phone] [id number] Christian Becker Self - patient is the insured Medical (General) History Medical History History ICD Code Cholesterol Measles Mumps Chicken pox Surgical History Surgery Date(Month/Year)
== END 2024-07-27 13:50 | disposition home or self-care (01) ==
LOC: HO.HOS 12:57
PROVIDERS: PCP Internal Medicine; Visit Provider Physician Assistant
DX: M17.0 Bilateral primary osteoarthritis of knee (principal)
CPT/HCPCS: 20610; 99203

== ENCOUNTER → 2024-07-27 12:56 | Outpatient (BNVA) | payer MEDICARE, SELFPAY | PROVIDERS: PCP Internal Medicine; Visit Provider Physician Assistant | DX: M17.0 Bilateral primary osteoarthritis of knee (principal) | CPT/HCPCS: 20610; 99202; J1010; J2003 ==

== ENCOUNTER 2024-07-28 10:16 | Outpatient (REF) | payer MEDICARE, SELFPAY ==
--- NOTE | ~2024-07-28 | US_ITS ---
EXAMINATION: US RIGHT GROIN, LIMITED CLINICAL INFORMATION: Right groin pain/inducible bulging. Rule out hernia. COMPARISON: None available. TECHNIQUE: Grayscale and color Doppler ultrasound imaging of the right groin was performed in the region of concern. Imaging was performed in the supine and upright positions, and during Valsalva maneuver. The contralateral left inguinal region was also obtained for comparison purposes. FINDINGS: No definite hernia, abnormal lymphadenopathy, soft tissue mass, or fluid collection evident in the region of concern. No inducible hernia was identified. US/US pelvic limited IMPRESSION: 1. No ultrasound evidence of inguinal hernia or other abnormality. Electronically signed by: Harinder Bourne MD 07/28/2024 10:52 AM EDT
--- OUTSIDE RECORDS SUMMARY | 2024-07-28 12:09 | XMS_ITS | Patient Health Record ---
[facility] Address [address] 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) Active confirmed Problem Chronic ulcer of foot (576550392) Non-pressure chronic ulcer of other part of left foot with fat layer exposed (L97.522) Active confirmed Problem Acquired hallux valgus (53346846) Hallux valgus (acquired), right foot (M20.11) Active confirmed Plan Of Treatment Pending Test Test Name Order Date [id number] SKIN/TISSUE 09/29/2020 37346 I&D ABSCESS- SIMPLE,SINGLE 020 Insurance Providers Payer Name Payer Address Payer Phone Subscriber Number Group Number Insured Name Patient Relationship to Insured Coverage Start Date Coverage End Date [facility] [address] [place] [address] [id number] Christian Becker Self - patient is the insured Medical (General) History Medical History History ICD Code Cholesterol Measles Mumps Chicken pox Surgical History Surgery Date(Month/Year)
== END 2024-07-28 10:17 | disposition home or self-care (01) ==
LOC: HO.HMGCX 10:16
PROVIDERS: PCP Internal Medicine
DX: K40.90 Unilateral inguinal hernia, without obstruction or gangrene, not specified as recurrent (principal)
CPT/HCPCS: 76857

== ENCOUNTER → 2024-07-28 10:19 | Outpatient (BNV) | payer MEDICARE, SELFPAY | PROVIDERS: PCP Internal Medicine; Visit Provider Radiology Diagnostic Radiology | DX: R10.31 Right lower quadrant pain (principal) | CPT/HCPCS: 76857 ==

== ENCOUNTER 2024-08-11 08:11 | Outpatient (AMB) | payer MEDICARE, SELFPAY ==
[2024-08-11 08:18] VITALS: BP 158/88; PULSE 88; RESP 20; TEMP 37.1; O2SAT 96; BMI 24.9
--- NOTE | 2024-08-11 08:18 | MHC.PC.OV ---
Vital Signs 08/11/24 08:18 Height 5 ft 9 in Weight 168 lb 12.8 oz BMI 24.9 BP 158/88 H Blood Pressure Location Lt brachial Position Sitting Respiration 20 Pulse 88 Pulse Source Pulse Oximeter Temp 98.7 F Temp Source Oral Pulse Oximetry (%) 96 Oxygen Delivery Method Room Air Intake Visit Reasons: hernia pain Seat Scooper Machine Required: No Accompanied by: Significant Other Allergies lactose [LACTOSE] Allergy (Severe, Verified 08/11/24 08:36) DIARHEA, abd pain, bloating, Medication List - Last Reconciled 08/11/24 by KIAH Alvarado dicyclomine 20 mg PO TID 30 days gabapentin 600 mg PO BEDTIME 30 days nabumetone 500 mg PO QAM PRN 30 days pravastatin 40 mg PO DAILY 90 days Tobacco use date assessed: 08/11/24 Fall risk assessment: No Falls in past year Last assessed Fall Risk: 08/11/24 Dental Screening Dental Screen Date: 08/11/24 Did you have a dental visit in the last 12 months?: No Did you have a dental problem in the last 6 months where you did not have access to dental care?: No Was dental information given to patient?: Patient declined HPI hernia pain HPI Details The patient is a 73-year-old male presenting with persistent knee and groin pain. The knee pain is severe and unrelieved by previous cortisone injections, and the patient describes a consistent severity of pain despite high pain tolerance. He experiences groin pain associated with physical activities; this pain has been persistent over time. Past ultrasounds for the groin pain did not provide clear results, and physical imaging challenges were noted by the petroleum laboratory technician. The patient reports previous high blood pressure readings, described as related to pain experiences. Previous pain management, including Nabumetone, has been ineffective for his condition. An alternative pain relief strategy is being sought during this visit, and diagnostic re-evaluation through a more comprehensive imaging method has been discussed to identify any underlying issues. [facility] Medical History Primary osteoarthritis of left hip Primary osteoarthritis of knees, bilateral Abnormal colonoscopy History of adenomatous polyp of colon Irritable bowel syndrome (IBS) Tubular adenoma of colon Elevated blood pressure reading Pure hypercholesterolemia Surgical History Hx of colonoscopy History of eye surgery Family History Father Prostate cancer Brother Hepatitis Social History Housing: Apartment Are you a primary career development facilitator to a significant other at home: No Do you presently have visiting nurse or other home services: No Alcohol intake: former Patient Tobacco Use Status: Former Tobacco user e-Cigarette/Vaping Use: Former Use Second Hand Smoke Exposure: Yes service: No Current occupational status: retired Cognitive needs: No Hearing needs: Yes Vision needs: Yes Questionnaire Thrive Questionnaire Date Thrive assessed: 08/11/24 I am a: Patient What is your living situation today?: I have a steady place to live Within the past 12 months, did the food you bought not last and you didn't have the money to get more?: Never true Within the past 12 months, did you worry whether your food would run out before you got money to buy more?: Never true Do you have trouble paying for medicines?: No Do you have trouble getting transportation to medical appointments?: No Do you have trouble paying your heating and electricity bill?: No Do you have trouble taking care of your child, family member or friend?: No Do you have trouble with day-to-day activities such as bathing, preparing meals, shopping, managing finances, etc.?: No Are you currently unemployed and looking for a job?: No Are you interested in more education?: No Please select the resources that you would like help with: None Currently or been in a relationship where the following occur: No concerns reported THRIVE Score: 0 AUDIT C Alcohol Use Questionnaire (AUDIT-C) 1. How often do you have a drink containing alcohol?: Never 3. How often do you have six or more drinks on one occasion?: Never Total Score: 0 Score Reviewed/Action Taken: No AARON-7 AMB Questionnaire AARON-7 Date AARON - 7 assessed: 07/07/24 Source: Developed by Drs. Kali Quintanilla, Sydney Felipe, Tera Millard and colleagues, with an educational allen from [employer]. Review of Systems Const Denies headache(s) Eyes Denies loss of vision ENT Denies vertigo, Denies dizziness, Denies headache(s), Reports hearing loss (Hard of hearing) and Denies sore throat Card Denies chest pain, Denies leg edema and Denies lightheadedness Resp Denies cough, Denies hemoptysis and Denies wheezing GI Denies abdominal pain, Denies melena, Denies constipation, Denies diarrhea, Denies vomiting and Reports other (Right groin pain worsened with walking and lifting, reducible bulging ) Denies dysuria, Denies urinary frequency and Denies urinary urgency Musc Reports arthralgias (Bilateral knees-post steroids injections), Denies joint swelling, Denies numbness and Denies tingling Neuro Denies Abnormal speech present, Denies vertigo, Denies dizziness, Denies headache(s), Denies loss of vision, Denies numbness and Denies tingling Psych Reports irritability Aller/Immun Denies wheezing Physical exam (Primary Care) Vital Signs: Oxygen Delivery Method Room Air 08/11/24 08:18 BMI result Body Mass Index 24.9 Tobacco/Smoking Status: Tobacco use Status Tobacco use date assessed 07/07/24 07/07/24 08:32 Patient Tobacco Use Status Former Tobacco user 07/07/24 08:32 e-Cigarette/Vaping Use Former Use 07/07/24 08:32 Thrive Assessment: Date of Thrive Assessment Date Thrive assessed 07/07/24 07/07/24 08:32 Currently or been in a relationship where the following occur: No concerns reported Const General: healthy appearing, no acute distress, alert and awake Nutritional Appearance: well nourished Orientation/consciousness: oriented to person, oriented to place and oriented to time HENMT Ears: external ears normal General nose exam: Normal external nose present Eyes Conjunctivae: conjunctivae normal Sclerae: sclerae normal Pupils: Equal, round and reactive pupils present Neck Neck: Yes no lymphadenopathy and Yes no JVD Thyroid: Thyroid normal Carotids: no bruits Resp Effort & Inspection: normal respiratory effort and not tachypneic Auscultation: no crackles, no rales, no rhonchi and no wheezes Cardio Rate: regular rate Rhythm: regular rhythm Heart sounds: no murmurs and normal S1 and S2 GI Other: refused groin assessment, stating that it is the same as it been prior Palpation (GI): Soft to palpation, nontender, no hepatomegaly and no splenomegaly Auscultation: normal bowel sounds Skin General skin exam: no rashes or lesions noted and dry skin Neuro General: oriented to person, oriented to place and oriented to time Cranial nerves: Yes Equal, round and reactive pupils present Speech: No Abnormal speech present Gait exam (Neuro): Normal gait present Extrem Right lower extremity: full ROM and knee Details: tenderness Location: of the pre-patellar area; no edema Left lower extremity: full ROM and knee Details: tenderness Location: of the pre-patellar area; no edema Psych Mental Status: mental status grossly normal Speech and movement: Normal speech and movement present Affect: normal affect Attitude: cooperative Thought process: Normal thought process present Coding Level of Care Code Est Pt Level 3 (96606) Diagnoses Primary osteoarthritis of both knees M17.0 Osteoarthritis type: primary Inguinal hernia, right K40.90 Time Spent (min) 31 Assessment & Plan Assessment & Plan (1) Osteoarthritis of knees, bilateral: Code(s): M17.0 - Bilateral primary osteoarthritis of knee Category: Medical Qualifiers: Osteoarthritis type: primary Qualified Code(s): M17.0 - Bilateral primary osteoarthritis of knee (2) Inguinal hernia, right: Code(s): K40.90 - Unilateral inguinal hernia, without obstruction or gangrene, not specified as recurrent Category: Medical Plan I plan to order a CT scan for better visualization of groin pain suspicion of a possible hernia not seen on ultrasound. Tramadol is prescribed for knee pain management as Nabumetone was ineffective. Orthopedic consultation is advised for alternative knee treatment options. Blood pressure is acknowledged as a concern potentially related to pain, indicating a need for monitoring. The patient is informed to follow up with orthopedics due to the unsatisfactory results from cortisone injections. Tramadol 50 mg bid x15 days order to buy the patient some time to get in touch with orthopedics Patient was informed and verbally consented to the use of an ambient scribe for clinic note documentation during this visit. Orders: Orders CT abdomen pelvis w IV con Today K40.90 - Unilateral inguinal hernia, without obstruction or gangrene, not specified as recurrent Medications: New tramadol 50 mg PO BID 15 days PRN 30 tabs 0RF pain M17.0 - Bilateral primary osteoarthritis of knee Patient Instructions: - Follow up with orthopedics regarding alternative knee pain management options. - Await CT scan appointment to determine the cause of groin pain. - Take prescribed tramadol as directed for knee pain. - Monitor blood pressure at home if possible and report if abnormalities persist. - Reach out if experiencing any new or worsening symptoms.
--- OUTSIDE RECORDS SUMMARY | 2024-08-11 08:23 | XMS_ITS | Patient Health Record ---
Author Organization [facility] Address [address] [place] [address] Care Team Providers Care Men'S Golf Coach Name Role Phone Maonlo CERRATO Clayton Primary Care Provider John Kay Unavailable [phone] Allergies Allergen (clinical drug ingredient) Drug/Non Drug [...] Status Risk Notes Problem Acquired hallux valgus (00441121) Hallux valgus (acquired), left foot (M20.12) Active confirmed Problem Non-pressure chronic ulcer of other part of right foot with fat layer exposed (L97.512) Active confirmed Problem Chronic ulcer of foot (609513810) Non-pressure chronic ulcer of other part of left foot with fat layer exposed (L97.522) Active confirmed Problem Acquired hallux valgus (06588588) Hallux valgus (acquired), right foot (M20.11) Active confirmed Plan Of Treatment Pending Test Test Name Order Date [id number] SKIN/TISSUE 09/29/2020 16496 I&D ABSCESS- SIMPLE,SINGLE 020 Insurance Providers Payer Name Payer Address Payer Phone Subscriber Number Group Number Insured Name Patient Relationship to Insured Coverage Start Date Coverage End Date [facility] [address] [place] [address] [id number] Christian Becker Self - patient is the insured Medical (General) History Medical History History ICD Code Cholesterol Measles Mumps Chicken pox Surgical History Surgery Date(Month/Year)
== END 2024-08-11 09:07 | disposition home or self-care (01) ==
LOC: HO.HMCH 08:11
PROVIDERS: PCP Internal Medicine
DX: M17.0 Bilateral primary osteoarthritis of knee (principal); K40.90 Unilateral inguinal hernia, without obstruction or gangrene, not specified as recurrent

== ENCOUNTER → 2024-08-11 08:11 | Outpatient (BNVA) | payer MEDICARE, SELFPAY | PROVIDERS: PCP Internal Medicine | DX: M17.0 Bilateral primary osteoarthritis of knee (principal); K40.90 Unilateral inguinal hernia, without obstruction or gangrene, not specified as recurrent | CPT/HCPCS: 99212 ==

== ENCOUNTER 2024-08-19 11:10 | Outpatient (REF) | payer MEDICARE, SELFPAY ==
--- NOTE | ~2024-08-19 | CT_ITS ---
EXAMINATION: CT ABDOMEN PELVIS WITH IV CONTRAST HISTORY: K40.90 - Unilateral inguinal hernia, without obstruction or gangrene, no... COMPARISON: There are no prior studies for comparison. TECHNIQUE: CT scan of the abdomen and pelvis was performed following administration of 85 mL Omnipaque 350 using standard departmental protocol. Coronal and sagittal reformatted images were generated and reviewed. The patient received oral contrast material. This CT exam was performed with one or more of the following dose reduction techniques: automated exposure control, adjustment of the mA and/or kV according to patient size, use of iterative reconstruction technique. DLP: 343 mGy-cm FINDINGS: LOWER CHEST: There is subsegmental atelectasis versus scarring at both lung bases. There is no pleural effusion. CARDIOVASCULATURE: The heart is normal in size. There is no pericardial effusion. LIVER: The liver is normal in size and contour. No liver mass is identified. The hepatic and portal veins are patent. GALLBLADDER / BILE DUCTS: The gallbladder is unremarkable. There is no intra or extrahepatic biliary ductal dilatation. SPLEEN: The spleen is normal in size. No focal splenic lesion is identified. PANCREAS: The pancreas is unremarkable in appearance. ADRENAL GLANDS: Within normal limits. KIDNEYS/RETROPERITONEUM: No renal calculi are identified. There is no hydronephrosis. No renal masses are identified. LYMPH NODES: No abdominal or pelvic lymphadenopathy. VASCULATURE: The abdominal aorta is normal in caliber. MESENTERY/PERITONEUM: No free fluid. No masses. There is no free intraperitoneal gas. STOMACH: The stomach is unremarkable. SMALL BOWEL: The small bowel is normal in caliber. COLON: There is diverticulosis of the sigmoid colon, without evidence of diverticulitis. APPENDIX: Normal. URINARY BLADDER/PELVIC ORGANS: The urinary bladder is unremarkable. The prostate is normal in size. BONES / SOFT TISSUES: No inguinal hernia is identified. There is severe degenerative disc disease of the spine. CT/CT abdomen pelvis w IV con IMPRESSION: 1. No inguinal hernia is identified. 2. Sigmoid diverticulosis without evidence of diverticulitis. Electronically signed by: Kali Bermudez MD 08/19/2024 02:06 PM EDT
--- OUTSIDE RECORDS SUMMARY | 2024-08-19 12:48 | XMS_ITS | Patient Health Record ---
[facility] Address [address] [place] [address] Care Team Providers Care Auto Radio Mechanic Name Role Phone Manolo CERRATO Clayton Primary Care Provider John Kay Unavailable [phone] Allergies Allergen (clinical drug ingredient) Drug/Non Drug [...] Status Risk Notes Problem Acquired hallux valgus (92494813) Hallux valgus (acquired), left foot (M20.12) Active confirmed Problem Non-pressure chronic ulcer of other part of right foot with fat layer exposed (L97.512) Active confirmed Problem Chronic ulcer of foot (663447089) Non-pressure chronic ulcer of other part of left foot with fat layer exposed (L97.522) Active confirmed Problem Acquired hallux valgus (38775199) Hallux valgus (acquired), right foot (M20.11) Active confirmed Plan Of Treatment Pending Test Test Name Order Date [id number] SKIN/TISSUE 09/29/2020 01229 I&D ABSCESS- SIMPLE,SINGLE 020 Insurance Providers Payer Name Payer Address Payer Phone Subscriber Number Group Number Insured Name Patient Relationship to Insured Coverage Start Date Coverage End Date [facility] [address] [place] [address] [id number] Christian Becker Self - patient is the insured Medical (General) History Medical History History ICD Code Cholesterol Measles Mumps Chicken pox Surgical History Surgery Date(Month/Year)
[2024-08-19] MEDS: iohexoL 350 MG/ML 100 ML INFUS..BTL IV (13:58)
[2024-08-19] MEDS: Barium Sulfate Oral (Berry) 450 ML ORAL.SUSP PO ×2 (13:59)
[2024-08-19 14:31] LABS: Creatinine POC 0.7 mg/dL (0.5-1.4); GFR POC > 60
== END 2024-08-19 11:11 | disposition home or self-care (01) ==
LOC: HO.CT 11:10
PROVIDERS: PCP Internal Medicine
DX: K40.90 Unilateral inguinal hernia, without obstruction or gangrene, not specified as recurrent (principal)
CPT/HCPCS: 74177; 82565; Q9967

== ENCOUNTER → 2024-08-19 11:12 | Outpatient (BNV) | payer MEDICARE, SELFPAY | PROVIDERS: PCP Internal Medicine; Visit Provider Radiology Diagnostic Radiology | DX: K57.30 Diverticulosis of large intestine without perforation or abscess without bleeding (principal) | CPT/HCPCS: 74177 ==

== ENCOUNTER 2024-10-09 09:09 | Outpatient (AMB) | payer MEDICARE, SELFPAY ==
--- NOTE | 2024-10-09 09:19 | MHC.OFFVIS ---
Vital Signs 10/09/24 09:20 Height 5 ft 9 in Weight 169 lb BMI 25.0 Intake Visit Reasons: OV-Both knee pain-discuss other options Intake Note: Christian is a 73 year old male who presents today for a follow up of his bilateral knee OA s/p bilateral knee injections on 07/27/24. Patient reports last injections did not provide him with any relief. States his right knee causes him the most discomfort. He would like to discuss other options. Allergies lactose (LACTOSE) Allergy (Severe, Verified 10/09/24 09:21) DIARHEA, abd pain, bloating, Medication List - Last Reconciled 10/09/24 by Ryan Knowles PA-C celecoxib (Celebrex) 200 mg PO BID 30 days dicyclomine 20 mg PO TID 30 days gabapentin 600 mg PO BEDTIME 30 days nabumetone 500 mg PO QAM PRN 30 days pravastatin 40 mg PO DAILY 90 days tramadol 50 mg PO BID PRN 15 days HPI HPI OV-Both knee pain-discuss other options: Details: 73 yo male presents to the office today f/u bilat knee pain s/p injection . He states the injections only lated about 2 days. He continues to have limitations on daily activities. He states he is still able to perform activities such as climbing ladders. He states the pain is not constant. [facility] Medical History Primary osteoarthritis of left hip Primary osteoarthritis of knees, bilateral Abnormal colonoscopy History of adenomatous polyp of colon Irritable bowel syndrome (IBS) Tubular adenoma of colon Elevated blood pressure reading Pure hypercholesterolemia Surgical History Hx of colonoscopy History of eye surgery Family History Father Prostate cancer Brother Hepatitis Social History Housing: Apartment Are you a primary care administrative tech to a significant other at home: No Do you presently have visiting nurse or other home services: No Alcohol intake: former Patient Tobacco Use Status: Former Tobacco user e-Cigarette/Vaping Use: Former Use Second Hand Smoke Exposure: Yes service: No Current occupational status: retired Cognitive needs: No Hearing needs: Yes Vision needs: Yes Review of Systems Const All systems reviewed & are unremarkable except as noted in HPI and below Physical Exam Vital Signs: BMI result Body Mass Index 25.0 Extrem Other: Bilat knee normal to inspection. No joint effusion. Full ROM with mild crepitus. Calf supple non tender, NVI. Assessment & Plan Assessment & Plan (1) Primary osteoarthritis of knees, bilateral: Code(s): M17.0 - Bilateral primary osteoarthritis of knee Category: Medical Plan: We discussed options which include continued conservative management versus surgical intervention. The patient is not a candidate for surgical intervention at this time as he continues to be able to perform daily activities without severe limitations. We discussed the role of gel injections which she is interested in. We will obtain authorization. I also discussed the benefits of Celebrex which she is interested in trying to help with his discomfort. Celebrex was sent to the pharmacy to take twice a day for 2 weeks for flare-ups. Once the gel is approved he will see us back for the injections. Medications: New celecoxib (Celebrex) 200 mg PO BID 60 caps 3RF 30 days Coding Level of Care Code Est Pt Level 3 (94410) Complex EM visit Add On G2211 Diagnoses Primary osteoarthritis of knees, bilateral M17.0
[2024-10-09 09:20] VITALS: BMI 25.0
--- OUTSIDE RECORDS SUMMARY | 2024-10-09 09:27 | XMS_ITS | Patient Health Record ---
[facility] Address [address] [facility] [place] [address] Care Team Providers Care Swimmer Name Role Phone Manolo CERRATO Clayton Primary Care Provider John Kay Unavailable [phone] Allergies Allergen (clinical drug ingredient) Drug/Non Drug [...] Status Risk Notes Problem Acquired hallux valgus (07471739) Hallux valgus (acquired), left foot (M20.12) Active confirmed Problem Non-pressure chronic ulcer of other part of right foot with fat layer exposed (L97.512) Active confirmed Problem Chronic ulcer of foot (579520032) Non-pressure chronic ulcer of other part of left foot with fat layer exposed (L97.522) Active confirmed Problem Acquired hallux valgus (71648241) Hallux valgus (acquired), right foot (M20.11) Active confirmed Plan Of Treatment Pending Test Test Name Order Date [id number] SKIN/TISSUE 09/29/2020 32092 I&D ABSCESS- SIMPLE,SINGLE 020 Insurance Providers Payer Name Payer Address Payer Phone Subscriber Number Group Number Insured Name Patient Relationship to Insured Coverage Start Date Coverage End Date [facility] [address] [facility] [place] [address] [id number] Christian Becker Self - patient is the insured Medical (General) History Medical History History ICD Code Cholesterol Measles Mumps Chicken pox Surgical History Surgery Date(Month/Year)
== END 2024-10-09 10:57 | disposition home or self-care (01) ==
LOC: HO.HOS 09:09
PROVIDERS: PCP Internal Medicine; Visit Provider Physician Assistant
DX: M17.0 Bilateral primary osteoarthritis of knee (principal)
CPT/HCPCS: 99213; G2211

== ENCOUNTER → 2024-10-09 09:09 | Outpatient (BNVA) | payer MEDICARE, SELFPAY | PROVIDERS: PCP Internal Medicine; Visit Provider Physician Assistant | DX: M17.0 Bilateral primary osteoarthritis of knee (principal) | CPT/HCPCS: 99212 ==

== ENCOUNTER 2024-11-04 11:12 | Outpatient (REF) | payer MEDICARE, SELFPAY ==
[2024-11-04 11:29] LABS: MANUAL DIFF FLAG NO
[2024-11-04 11:58] LABS: Hematocrit 41.4 % (42.0-52.0); Hemoglobin 14.2 g/dl (14.0-18.0); Imm Gran Abs Auto 0.03 X10*3/uL (0.00-0.03); Imm Gran Pct Auto 0.4 % (0.0-0.4); Lymphocytes Absolute Auto 1.2 X10*3/uL (1.2-4.9); Mean Corpuscular HGB Conc 34.3 g/dl (31.0-36.0); Mean Corpuscular Hemoglobin 31.8 pg (27.0-33.0); Mean Corpuscular Volume 92.8 fL (80.0-98.0); NRBC Abs Auto 0.000 X10*3/uL (0.0-0.012); NRBC Pct Auto 0.0 /100WBC (0.0-0.2); Platelet Count 410 X10*3/uL (160-400); Red Blood Count 4.46 X10*6/uL (4.60-5.80); White Blood Count 8.2 X10*3/uL (4.8-10.8)
--- OUTSIDE RECORDS SUMMARY | 2024-11-04 12:05 | XMS_ITS | Patient Health Record ---
[facility] Address [address] [place] [address] Care Team Providers Care Him Tech Name Role Phone Terry French MDneth Primary Care Provider John Kay Unavailable [phone] Allergies Allergen (clinical drug ingredient) Drug/Non Drug Allergy documented on EMR Reaction Allergy Type Onset Date Status Lactose Unknown Drug Allergy Active Reason For Referral No Information Medications Medication SIG (Take, Route, Frequency, Duration) Notes Start Date End Date Status Pravastatin Sodium 40 MG 1 tablet Orally Once a day; Duration: 30 day(s) Active Antibiotic Not-Takin g Dicyclomine HCl 20 MG 1 tablet Orally Th ree times a day; Duration: 30 day(s) Active Keflex 500 MG 1 capsule Orally bid ; Duration: 10 days 03/21/2020 Active Social History Tobacco [...] Status Risk Notes Problem Acquired hallux valgus (44479657) Hallux valgus (acquired), left foot (M20.12) Active confirmed Problem Non-pressure chronic ulcer of other part of right foot with fat layer exposed (L97.512) Active confirmed Problem Chronic ulcer of foot (459411912) Non-pressure chronic ulcer of other part of left foot with fat layer exposed (L97.522) Active confirmed Problem Acquired hallux valgus (17335867) Hallux valgus (acquired), right foot (M20.11) Active confirmed Plan Of Treatment Pending Test Test Name Order Date [id number] SKIN/TISSUE 09/29/2020 77352 I&D ABSCESS- SIMPLE,SINGLE 020 Insurance Providers Payer Name Payer Address Payer Phone Subscriber Number Group Number Insured Name Patient Relationship to Insured Coverage Start Date Coverage End Date [facility] [address] [facility] [place] [address] [id number] Christian Becker Self - patient is the insured Medical (General) History Medical History History ICD Code Cholesterol Measles Mumps Chicken pox Surgical History Surgery Date(Month/Year)
[2024-11-04 12:07] LABS: Hemoglobin A1C 141.4170 umol/L; Total Hemoglobin (HGBA1C) 3660.3455 umol/L
[2024-11-04 12:10] LABS: Appearance Urine Cloudy; Glucose Urine UA Negative (Negative); PH 6.0 (5.0-9.0); Specific Gravity - Urine >= 1.030 (1.005-1.025); UMIC TRIGGER UACC YES
[2024-11-04 12:25] LABS: Alanine Aminotransferase 20 U/L (0-40); Albumin Level 2.4 g/dL (3.5-5.0); Alkaline Phosphatase 119 U/L (39-117); Anion Gap 10 (12-20); Aspartate Amino Transferase 30 U/L (5-37); Blood Urea Nitrogen 19 mg/dL (9-16); Calcium 8.8 mg/dL (8.4-10.2); Carbon Dioxide 24 mmol/L (22-29); Chloride 109 mmol/L (96-108); Cholesterol 220 mg/dL (<200); Estimated Glomerular Filt Rate 58; HDL Cholesterol 42 mg/dL (>40); Potassium 3.9 mmol/L (3.3-5.1); Sodium 139 mmol/L (135-145); Total Protein 6.2 g/dL (6.5-8.0); Triglycerides 272 mg/dL (<150)
== END 2024-11-04 11:13 | disposition home or self-care (01) ==
LOC: HO.LAB 11:12
PROVIDERS: PCP Internal Medicine
DX: Z86.0100 Personal history of colon polyps, unspecified (principal); E78.00 Pure hypercholesterolemia, unspecified; K58.9 Irritable bowel syndrome, unspecified; R03.0 Elevated blood-pressure reading, without diagnosis of hypertension
CPT/HCPCS: 36415; 80053; 80061; 81001; 81003; 82306; 83036; 84443; 85025

== ENCOUNTER 2024-11-17 09:25 | Outpatient (REF) | payer MEDICARE, SELFPAY ==
--- NOTE | ~2024-11-17 | XR_ITS ---
EXAMINATION: XR CHEST CLINICAL INFORMATION: R06.00 - Dyspnea, unspecified COMPARISON: None available. TECHNIQUE: 2 views of the chest were obtained. FINDINGS: The cardiac, hilar, and mediastinal contours are normal. Lungs are mildly hyperaerated. There is mild diffuse prominence of the background interstitial markings. There is linear type atelectasis or scarring in the left base. There is no pneumothorax or pleural effusion. There is no focal osseous or soft tissue abnormality. XR/XR chest 2V IMPRESSION: Mildly hyperaerated lungs, with mild prominence of the background interstitial markings. Cannot exclude early changes of interstitial lung disease versus senescent lung changes. Electronically signed by: Harinder Bourne MD 11/17/2024 11:09 AM EDT
--- NOTE | 2024-11-17 10:35 | ECG_ITS ---
Test Reason : dyspnea Blood Pressure : */* mmHG Vent. Rate : 87 BPM Atrial Rate : 87 BPM P-R Int : 162 ms QRS Dur : 102 ms QT Int : 378 ms P-R-T Axes : 51 13 15 degrees QTcB Int : 454 ms Normal sinus rhythm Low voltage QRS Incomplete right bundle branch block Borderline ECG When compared with ECG of 24-Mar-2012 15:45, Low QRS voltage needed Referred By: Clayton Fernch Electronically Signed By: GELY HOLT MD
[2024-11-17 11:12] LABS: Prealbumin 13.0 mg/dL (20-40)
[2024-11-17 11:15] LABS: B Type Natriuretic Peptide 61 pg/mL (<100)
[2024-11-17 11:16] LABS: Anion Gap 9 (12-20); Blood Urea Nitrogen 18 mg/dL (9-16); Calcium 8.4 mg/dL (8.4-10.2); Carbon Dioxide 27 mmol/L (22-29); Chloride 107 mmol/L (96-108); Estimated Glomerular Filt Rate 56; Potassium 4.2 mmol/L (3.3-5.1); Sodium 139 mmol/L (135-145)
[2024-11-17 11:58] LABS: Microalbum/Creatinine Ratio Ur 136.3 ug/mg cr (<30)
== END 2024-11-17 09:26 | disposition home or self-care (01) ==
LOC: HO.XRAY 09:25
PROVIDERS: PCP Internal Medicine; Visit Provider Internal Medicine
DX: E78.00 Pure hypercholesterolemia, unspecified (principal); R03.0 Elevated blood-pressure reading, without diagnosis of hypertension; R73.01 Impaired fasting glucose; R80.9 Proteinuria, unspecified; R06.09 Other forms of dyspnea; I49.49 Other premature depolarization; M17.0 Bilateral primary osteoarthritis of knee; M16.12 Unilateral primary osteoarthritis, left hip; K58.9 Irritable bowel syndrome, unspecified; Z86.0100 Personal history of colon polyps, unspecified
CPT/HCPCS: 36415; 71046; 80048; 82043; 82570; 83880; 84134; 85652; 86140; 93005; 96127; 99212

== ENCOUNTER 2024-11-17 09:25 | Outpatient (AMB) | payer MEDICARE, SELFPAY ==
[2024-11-17 09:32] VITALS: BP 126/84; PULSE 92; O2SAT 96; BMI 26.2
--- NOTE | 2024-11-17 09:32 | MHC.PC.OV ---
Vital Signs 11/17/24 09:32 Height 5 ft 9 in Weight 177 lb 6 oz BMI 26.2 BP 126/84 Blood Pressure Location Lt brachial Position Sitting Pulse 92 Pulse Source Pulse Oximeter Pulse Oximetry (%) 96 Oxygen Delivery Method Room Air Intake Visit Reasons: IBS, HLD, IFG [employer] Required: No Accompanied by: Self / Same As Patient Allergies lactose (LACTOSE) Allergy (Severe, Verified 11/17/24 09:50) DIARHEA, abd pain, bloating, Medication List - Last Reconciled 11/17/24 by Clayton French MD celecoxib (Celebrex) 200 mg PO BID 30 days dicyclomine 20 mg PO TID 30 days gabapentin 600 mg PO BEDTIME 30 days nabumetone 500 mg PO QAM PRN 30 days pravastatin 40 mg PO DAILY 90 days Tobacco use date assessed: 11/17/24 Fall risk assessment: No Falls in past year Last assessed Fall Risk: 11/17/24 Dental Screening Dental Screen Date: 11/17/24 Did you have a dental visit in the last 12 months?: No Did you have a dental problem in the last 6 months where you did not have access to dental care?: No Was dental information given to patient?: Patient declined HPI IBS, HLD, IFG HPI Details Patient comes in for further evaluation States that he has had a lot of acute issues over the past month or so Reports that he has been experiencing increased fatigue persistently for a while now and has noticed increased swelling in both of his legs and feet lately He has been having problems with his knees (pain) for weeks now and is seeing orthopedics for his knee issues States that he is scheduled for some gel injection into his knees with orthopedics sometime soon but feels that the swelling in his legs and feet have nothing to do with his knees, and notes that he has also been experiencing recurrent cramping pains in his hands and feet recently States that he has been experiencing increased SOB lately even with minimal exertional activities that he normally is able to do without any problems Relates (+) on and off coughing as well lately Reports that his stomach feels bloated all the time and he has been burping constantly and most of the time does not have any appetite to eat but he denies any abdominal pain, nausea or vomiting He has also noticed occasionally feeling dizzy when he bends over or gets up too quickly and has also felt his heart beating fast on a couple of occasions wherein he feels the need to lie down just to let the sensation pass He denies any headaches Denies any exertional chest pains No change in bowel habits noted He had his follow up labs done a couple of weeks ago - to discuss his results [facility] Medical History Primary osteoarthritis of left hip Primary osteoarthritis of knees, bilateral Abnormal colonoscopy History of adenomatous polyp of colon Irritable bowel syndrome (IBS) Tubular adenoma of colon Elevated blood pressure reading Pure hypercholesterolemia Surgical History Hx of colonoscopy History of eye surgery Family History Father Prostate cancer Brother Hepatitis Social History Housing: Apartment Are you a primary client care representative to a significant other at home: No Do you presently have visiting nurse or other home services: No Alcohol intake: former Patient Tobacco Use Status: Former Tobacco user e-Cigarette/Vaping Use: Former Use Second Hand Smoke Exposure: Yes service: No Current occupational status: retired Cognitive needs: No Hearing needs: Yes Vision needs: Yes Questionnaire PHQ-9 Over the last 2 weeks, how often have you been bothered by any of the following problems? 1. Little interest or pleasure in doing things: not at all 2. Feeling down, depressed, or hopeless: not at all 3. Trouble falling or staying asleep, or sleeping too much: nearly every day 4. Feeling tired or having little energy: nearly every day 5. Poor appetite or overeating: nearly every day 6. Feeling bad about yourself - or that you are a failure or have let yourself or your family down: not at all 7. Trouble concentrating on things, such as reading the newspaper or watching television: not at all 8. Moving or speaking so slowly that other people could have noticed. Or the opposite - being so fidgety or restless that you have been moving around a lot more than usual: not at all 9. Thoughts that you would be better off or of hurting yourself in some way: not at all Total score: 9 Depression Screening Interpretation: Positive Depression Screening Follow-up: Follow-up Visit Requested Depression Screening Done: Yes 85647 - PHQ-9 Billing: Yes Source: Developed by Drs. Kali Quintanilla, Sydney Felipe, Tera Millard and colleagues, with an educational allen from [employer]. Thrive Questionnaire Date Thrive assessed: 11/17/24 I am a: Patient What is your living situation today?: I have a steady place to live Within the past 12 months, did the food you bought not last and you didn't have the money to get more?: Never true Within the past 12 months, did you worry whether your food would run out before you got money to buy more?: Never true Do you have trouble paying for medicines?: No Do you have trouble getting transportation to medical appointments?: No Do you have trouble paying your heating and electricity bill?: No Do you have trouble taking care of your child, family member or friend?: No Do you have trouble with day-to-day activities such as bathing, preparing meals, shopping, managing finances, etc.?: No Are you currently unemployed and looking for a job?: No Are you interested in more education?: No Please select the resources that you would like help with: None Currently or been in a relationship where the following occur: No concerns reported THRIVE Score: 0 AUDIT C Alcohol Use Questionnaire (AUDIT-C) 1. How often do you have a drink containing alcohol?: Never 3. How often do you have six or more drinks on one occasion?: Never Total Score: 0 Score Reviewed/Action Taken: Yes AARON-7 AMB Questionnaire AARON-7 Date AARON - 7 assessed: 11/17/24 Feeling nervous, anxious, or on edge: 0 = Not at all Not being able to stop or control worryin = Not at all Worrying too much about different things: 0 = Not at all Trouble relaxin = Not at all Being so restless that it is hard to sit still: 0 = Not at all Becoming easily annoyed or irritable: 0 = Not at all Feeling afraid as if something awful might happen: 0 = Not at all Total AARON-7 score (0-4 normal; 5-9 mild; 10-14 moderate; 15-21 severe): 0 Source: Developed by Drs. Kali Quintanilla, Sydney Felipe, Tera Millard and colleagues, with an educational allen from [employer]. Review of Systems Const Reports as per HPI, Denies chills, Reports fatigue, Denies fever(s), Denies headache(s), Reports poor appetite and Reports weakness ENT Details: * patient is somewhat hard of hearing and has a tendency to read lips to compensate Denies dysphagia, Reports dizziness (on and off, especially when he moves or gets up too quickly), Denies otalgia, Denies headache(s), Reports hearing loss, Denies neck pain, Denies odynophagia and Denies sore throat Card Reports as per HPI, Denies chest pain, Denies chest pain with activity, Reports palpitations (occasionally lately - see HPI) and Reports dyspnea on exertion Resp Reports chest congestion (at times), Reports cough (on and off), Reports dyspnea on exertion and Denies wheezing GI Denies abdominal pain, Reports bloating, Denies constipation, Denies dysphagia, Denies heartburn, Denies diarrhea, Denies nausea, Denies odynophagia and Denies vomiting Reports oliguria (has noticed some slowing of urine stream), Denies dysuria, Denies nocturia, Denies urinary frequency and Denies urinary incontinence Musc Denies back pain, Reports arthralgias (increased pain in both knees and left hip - worse at night), Denies neck pain and Reports stiffness Skin/Breast Denies rash Neuro Reports dizziness (on and off, especially when he moves or gets up too quickly), Denies headache(s) and Reports weakness Endo Reports fatigue and Reports palpitations (occasionally lately - see HPI) Aller/Immun Denies wheezing Physical exam (Primary Care) Vital Signs: Last Vital Signs Pulse 92 11/17/24 09:32 BP 126/84 11/17/24 09:32 Pulse Ox 96 11/17/24 09:32 Oxygen Delivery Method Room Air 11/17/24 09:32 BMI result Body Mass Index 26.2 Tobacco/Smoking Status: Tobacco use Status Tobacco use date assessed 11/17/24 11/17/24 09:36 Patient Tobacco Use Status Former Tobacco user 11/17/24 09:36 e-Cigarette/Vaping Use Former Use 11/17/24 09:36 PHQ-9: PHQ-9 Score PHQ-9: Total score 9 11/17/24 09:36 Depression Screening Interpretation: Positive Depression Screening Follow-up: Follow-up Visit Requested Thrive Assessment: Date of Thrive Assessment Date Thrive assessed 11/17/24 11/17/24 09:36 Currently or been in a relationship where the following occur: No concerns reported Const General: no acute distress and alert HENMT Ears: TM's normal bilaterally and EAC's normal Throat: Yes posterior oropharynx normal and Yes tonsils normal (no TP congestion noted) Neck Neck: Yes supple and No lymphadenopathy Thyroid: Thyroid normal Resp Auscultation: no crackles, no rales, no wheezes and diminished lung sounds bilateral Cardio Rate: regular rate Rhythm: abnormal rhythm with ectopic beats Heart sounds: Murmur heart sound present systolic soft, II/ and at the apex GI Palpation (GI): Soft to palpation, nontender and no guarding Auscultation: normal bowel sounds General: Yes no CVA tenderness Back/Spine/Pelvis Back: no CVA tenderness Thoracic/Lumbar Spine: No lumbar spinal tenderness Skin Rashes: no rashes Extrem General: No calf tenderness, No clubbing, No cyanosis and Yes edema (2+ bilaterally) Right lower extremity: hip/thigh Details: tenderness Location: of the hip and knee Details: tenderness and swelling (mild) Left lower extremity: knee Details: tenderness and swelling (mild) Results Reviewed Results Reviewed: Laboratory Tests 11/04/24 11/04/24 11:20 11:27 WBC 8.2 Hgb 14.2 Hct 41.4 L Plt Count 410 H Sodium 139 Potassium 3.9 Creatinine 1.23 Estimated GFR 58 Fasting Glucose 171 H Hemoglobin A1c % 5.7 Calcium 8.8 D AST 30 ALT 20 Triglycerides 272 H Cholesterol 220 H LDL Cholesterol, Calc 124 H HDL Cholesterol 42 25-OH Vitamin D Total 23.1 L TSH 1.49 Ur Specific [place] >= 1.030 H Urine Protein >=1000 (4+) H Urine Glucose (UA) Negative Urine Blood Small (1+) H Urine Nitrite Negative Ur Leukocyte Esterase Negative Coding Level of Care Code Est Pt Level 4 (43032) Complex EM visit Add On G2211 Diagnoses Pure hypercholesterolemia E78.00 Elevated blood pressure reading R03.0 Impaired fasting glucose R73.01 Proteinuria, unspecified type R80.9 Proteinuria type: unspecified Exertional dyspnea R06.09 Ectopic cardiac beats I49.49 Primary osteoarthritis of knees, bilateral M17.0 Primary osteoarthritis of left hip M16.12 Irritable bowel syndrome, unspecified type K58.9 Irritable bowel syndrome type: unspecified History of adenomatous polyp of colon Z86.010 Additional Codes PHQ-9 - 90081 - PHQ-9 Billing: Yes ([id number]) Assessment & Plan Assessment & Plan (1) Pure hypercholesterolemia: Code(s): E78.00 - Pure hypercholesterolemia, unspecified Category: Medical Plan: Results of his labs done a couple of weeks ago reviewed and discussed with patient - he is cautioned that his cholesterol levels have gone up significantly from previous Reinforced low cholesterol diet Continue Pravastatin 40 mg QD for now Will recheck his labs and fasting lipids in 3 months for follow up (2) Elevated blood pressure reading: Code(s): R03.0 - Elevated blood-pressure reading, without diagnosis of hypertension Category: Medical Plan: His BP appears okay today but he is now presenting with some concerning findings of edema and gross proteinuria on his labs Reinforced low sodium diet - goal is systolic BP of at least 140 mm or less Patient has declined previous attempts to start him on blood pressure medications in the past He is reminded to continue monitoring his blood pressure regularly for now (3) Impaired fasting glucose: Code(s): R73.01 - Impaired fasting glucose Category: Medical Plan: His FBS has a tendency to run high often on his routine labs and is again high at 171 mg/dl on his recent labs but his HgbA1c remained normal at 5.7% His HgbA1c was also at 5.7%, 5.3% and 5.5% when previously checked Reinforced low calorie diet/exercise as tolerated Will continue to monitor his FBS and HgbA1c regularly when appropriate (4) Proteinuria: Code(s): R80.9 - Proteinuria, unspecified Category: Medical Qualifiers: Proteinuria type: unspecified Qualified Code(s): R80.9 - Proteinuria, unspecified Plan: Have discussed with patient the concerning findings on his recent labs today, including his now overt proteinuria and that with his recent edema and increased fatigue, this may indicate some ongoing renal pathology Will send him for some additional labs KRYSTA for further evaluation Will have him STOP taking Celecoxib (which he has been taking at 200 mg BID and he states that this has not really been helping much) KRYSTA He is also currently on Nabumetone 500 mg Q AM and discussed that he is taking too many NSAIDs at this time and this can be detrimental to his kidneys Have emphazised to patient that he CANNOT take any other NSAIDs for now, including OTC Ibuprofen, Advil, Motrin or Aleve but he can take Tylenol PRN Advised that we will reach out to him again with further instructions once his results (lab, CXR, EKG) are available (5) Exertional dyspnea: Code(s): R06.09 - Other forms of dyspnea Category: Medical Plan: Will send him for chest x-rays KRYSTA for further evaluation Will also check his serum BNP level today (6) Ectopic cardiac beats: Code(s): I49.49 - Other premature depolarization Category: Medical Plan: Will send patient for a 12-lead EKG KRYSTA for further evaluation (7) Primary osteoarthritis of knees, bilateral: Code(s): M17.0 - Bilateral primary osteoarthritis of knee Category: Medical Plan: Knee x-rays done back in July 2022 revealed (+) mild tricompartmental degenerative changes of both knees; (+) chondrocalcinosis; no acute abnormalities otherwise Continue Nabumetone 500 mg Q AM with food PRN for pain and Gabapentin 600 mg Q HS States that his knee pain have improved with aspiration and cortisone injections with [facility] Orthoped[facility] last year Follow up with orthopedics as scheduled - he is apparently scheduled for Euflexxa injections in the next week or two with orthopedics (8) Primary osteoarthritis of left hip: Code(s): M16.12 - Unilateral primary osteoarthritis, left hip Category: Medical Plan: X-rays of the left hip done in July 2022 revealed (+) moderate to severe degenerative changes of the left hip Continue Nabumetone 500 mg Q AM with food PRN for pain and Gabapentin 600 mg Q HS Follow up with [facility] Orthopedics as scheduled (9) Irritable bowel syndrome (IBS): Code(s): K58.9 - Irritable bowel syndrome, unspecified Category: Medical Qualifiers: Irritable bowel syndrome type: unspecified Qualified Code(s): K58.9 - Irritable bowel syndrome without diarrhea Plan: Continue Dicyclomine 20 mg TID PRN (10) History of adenomatous polyp of colon: Code(s): Z86.010 - Personal history of colon polyps Category: Medical Plan: He was supposed to get a CT colonography done a couple of years ago but patient did not go Repeat colonoscopy done in October 2020 was incomplete, reportedly due to a sharp angulation encountered at the 35 to 40 cm level that made it risky to continue attempting to advance the scope but patient feels that this was due more to the doctor's fault for not being able to complete the procedure - is not happy about having to go through the prep again and has adamantly refused to go for CT colonography He continues to decline getting another colon exam but is again advised to think about it and to REconsider his decision Discussed again option of doing Cologuard test instead in another year or so if he does not want to go back for a CT colonography or a regular colonoscopy - is advised to think about this OR consider a referral to another provider of his choice for a repeat colonoscopy He continues to decline offer to refer him back for colon cancer screening; declines Cologuard as well Plan Follow up in 3 months Orders: Orders XR chest 2V Today R06.00 - Dyspnea, unspecified ECG 12 lead EKG Today I49.9 - Cardiac arrhythmia, unspecified, R06.00 - Dyspnea, unspecified Microalbumin, Random (w Creat) Today R06.00 - Dyspnea, unspecified, R80.9 - Proteinuria, unspecified Comprehensive [place]. Panel Fast 3 Months E78.00 - Pure hypercholesterolemia, unspecified Erythrocyte Sedimentation Rate Today R79.89 - Other specified abnormal findings of blood chemistry Prealbumin Today R79.89 - Other specified abnormal findings of blood chemistry B Type Natriuretic Peptide Today R06.00 - Dyspnea, unspecified, R80.9 - Proteinuria, unspecified Basic Metabolic Panel Today R06.00 - Dyspnea, unspecified, R80.9 - Proteinuria, unspecified Complete Blood Count Auto Diff 3 Months D64.9 - Anemia, unspecified Lipid Panel 3 Months E78.00 - Pure hypercholesterolemia, unspecified TSH reflex Free T4 3 Months E78.00 - Pure hypercholesterolemia, unspecified UA CC w/rflx Micro + Cult 3 Months R30.0 - Dysuria C Reactive Protein Today R79.89 - Other specified abnormal findings of blood chemistry Medications: Discontinued celecoxib (Celebrex) Discontinued Reason: Doctor's Order 200 mg PO BID 30 days 60 caps 3RF
--- OUTSIDE RECORDS SUMMARY | 2024-11-17 09:54 | XMS_ITS | Clinical Summary ---
Author Organization [facility] Address [address] [place] [id number] Phone Care Team Providers Care Logistics Tech Name Role Phone Clayton French MD Primary Care Provider [phone] Allergies No known active allergies Medications dicyclomine (BENTYL) 20 mg tablet Take 20 mg by mouth 3 (three) times a day. 09/09/2022 Active gabapentin (NEURONTIN) 600 MG tablet Take 600 mg by mouth nightly at bedtime. 09/06/2022 Active nabumetone (RELAFEN) 500 MG tablet TAKE ONE TABLET BY MOUTH EVERY MORNING NEEDED FOR JOINT PAIN. TAKE WITH FOOD. 09/11/2022 Active pravastatin (PRAVACHOL) 40 MG tablet Take 1 tablet by mouth every morning. 08/17/2022 Active Social History Tobacco Use Types Packs/Day Years Used Date Smoking Tobacco: Never Assessed Education Answer Date Recorded Are you interested in more education? Not on enrique e 09/04/2022 Are you concerned about learning? Not on file 09/04/2022 No 09/04/2022 No 09/04/2022 Digital Access Answer Date Recorded No 09/15/2022 No 09/15/2022 No 09/15/2022 Reliable internet access at home? Not on file 09/15/2022 Device with a working camera? Not on file Sex and Gender Information Value Date Recorded Sex Assigned at Not on file Legal Sex Male 11:39 AM EDT Gender Identity Not on file Sexual Orientation Not on file Plan of Treatment Health Maintenance Due Date Last Done Comments Adult Td,Tdap Booster 1950 LIPID PANEL 1950 DEPRESSION SCREENING 1962 SMOKING Hx and SMOKELESS TOBACCO SCREENING 10/13/1963 HEPATITIS C SCREENING 1968 COLOGUARD 10/13/1995 COLONOSCOPY 10/13/1995 COLORECTAL CANCER SCREENING 10/13/1995 FIT TEST 10/13/1995 FOBT 10/13/1995 SIGMOIDOSCOPY 10/13/1995 VIRTUAL COLONOSCOPY 10/13/1995 ZOSTER VACCINES (1 of 2) 2000 PNEUMOCOCCAL VACCINES (50+ years) (2 of 2 - PPSV23) 01/10/2022 01/10/2021, 12/11/2019, 12/20/2016 COVID-19 VACCINE (2023- season) 2023 01/29/2022, 01/25/2021, 07/15/2020, Additional history exists RSV VACCINE (1 - 1-dose 75+ series) 2025 HEPATITIS A VACCINES Aged Out No long er eligible based on patient's age to complete this topic HIB VACCINES Aged Out No longer eligi ble based on patient's age to complete this topic MENINGOCOCCAL VACCINES (ACWY) Aged Out No longer eligible based on patient's age to complete this topic MENINGOCOCCAL VACCINES (B) Aged Out N o longer eligible based on patient's age to complete this topic Medical Devices Not on file Insurance MEDICARE HMO REPLACEMENT MEDICARE HMO [place] [address] [place] [address] MEDICARE HMO REPLACEMENT [employer] [place] MED[employer] H[place] REPLACEMENT [employer] [place] MEDICARE HMO REPLACEMENT [employer] [place] MEDIC[place] HMO REPLACEMENT Care Teams Logistics Tech Relationship Specialty Start Date End Date Clayton French MD [address] [place] [id number] PCP - General Internal Medicine 09/04/22 Additional Source Comments The information contained in this document represents components of the legal health record. It is not the complete legal health record.[facility]
--- OUTSIDE RECORDS SUMMARY | 2024-11-17 09:54 | XMS_ITS | Patient Health Record ---
[facility] Address [address] [place] [address] Care Team Providers Care Cotton Opener Name Role Phone Terry French MDneth Primary Care Provider John aKy Unavailable [phone] Allergies Allergen (clinical drug ingredient) Drug/Non Drug [...] Status Risk Notes Problem Acquired hallux valgus (88446564) Hallux valgus (acquired), left foot (M20.12) Active confirmed Problem Non-pressure chronic ulcer of other part of right foot with fat layer exposed (L97.512) Active confirmed Problem Chronic ulcer of foot (306210431) Non-pressure chronic ulcer of other part of left foot with fat layer exposed (L97.522) Active confirmed Problem Acquired hallux valgus (84978324) Hallux valgus (acquired), right foot (M20.11) Active confirmed Plan Of Treatment Pending Test Test Name Order Date [id number] SKIN/TISSUE 09/29/2020 42541 I&D ABSCESS- SIMPLE,SINGLE 020 Insurance Providers Payer Name Payer Address Payer Phone Subscriber Number Group Number Insured Name Patient Relationship to Insured Coverage Start Date Coverage End Date [facility] [address] [place] [address] [id number] Christian Becker Self - patient is the insured Medical (General) History Medical History History ICD Code Cholesterol Measles Mumps Chicken pox Surgical History Surgery Date(Month/Year)
== END 2024-11-17 10:07 | disposition home or self-care (01) ==
LOC: HO.HMCH 09:26
PROVIDERS: PCP Internal Medicine; Visit Provider Internal Medicine
DX: E78.00 Pure hypercholesterolemia, unspecified (principal); R03.0 Elevated blood-pressure reading, without diagnosis of hypertension; R73.01 Impaired fasting glucose; R80.9 Proteinuria, unspecified; R06.09 Other forms of dyspnea; I49.49 Other premature depolarization; M17.0 Bilateral primary osteoarthritis of knee; M16.12 Unilateral primary osteoarthritis, left hip; K58.9 Irritable bowel syndrome, unspecified; Z86.0100 Personal history of colon polyps, unspecified

== ENCOUNTER → 2024-11-17 10:35 | Outpatient (BNV) | payer MEDICARE, SELFPAY | PROVIDERS: PCP Internal Medicine; Visit Provider Internal Medicine Cardiovascular Disease | DX: I45.10 Unspecified right bundle-branch block (principal) | CPT/HCPCS: 93010 ==

== ENCOUNTER → 2024-11-17 10:45 | Outpatient (BNV) | payer MEDICARE, SELFPAY | PROVIDERS: PCP Internal Medicine; Visit Provider Radiology Diagnostic Radiology | DX: J98.11 Atelectasis (principal) | CPT/HCPCS: 71046 ==

== ENCOUNTER 2024-11-20 09:24 | Outpatient (AMB) | payer MEDICARE, SELFPAY ==
--- NOTE | 2024-11-20 09:30 | MHC.OFFVIS ---
Intake Visit Reasons: INJ- Bilat knee Injection Gel One Intake Note: Christian is a 74 year old male who presents today for bilateral knee Gel-One injections. Patient reports he is doing well, with no further concerns at this time. Allergies lactose (LACTOSE) Allergy (Severe, Verified 11/17/24 09:50) DIARHEA, abd pain, bloating, Medication List - Last Reconciled 11/20/24 by Ryan Knowles PA-C dicyclomine 20 mg PO TID 30 days gabapentin 600 mg PO BEDTIME 30 days nabumetone 500 mg PO QAM PRN 30 days pravastatin 40 mg PO DAILY 90 days HPI HPI INJ- Bilat knee Injection Gel One: Details: 74-year-old gentleman returns to the office today for bilateral knee Gel-One injections. [facility] Medical History Primary osteoarthritis of left hip Primary osteoarthritis of knees, bilateral Abnormal colonoscopy History of adenomatous polyp of colon Irritable bowel syndrome (IBS) Tubular adenoma of colon Elevated blood pressure reading Pure hypercholesterolemia Surgical History Hx of colonoscopy History of eye surgery Family History Father Prostate cancer Brother Hepatitis Social History Housing: Apartment Are you a primary critical care nurse practitioner to a significant other at home: No Do you presently have visiting nurse or other home services: No Alcohol intake: former Patient Tobacco Use Status: Former Tobacco user e-Cigarette/Vaping Use: Former Use Second Hand Smoke Exposure: Yes service: No Current occupational status: retired Cognitive needs: No Hearing needs: Yes Vision needs: Yes Review of Systems Const All systems reviewed & are unremarkable except as noted in HPI and below Physical Exam Extrem Other: Bilat knee normal to inspection. No joint effusion. Full ROM with mild crepitus. Calf supple non tender, NVI. Office Procedures AMB Joint Injection/Aspiration Joint Injection/Aspiration Details: gel one Primary Site: right knee Secondary Site: left knee Prep: site was prepped using aseptic technique, ethochloride spray was applied and injection warnings given Injected: in the joint Approach Used: anterolateral Procedure: The patient tolerated the procedure well Coding 31679 - Glenohumeral/Tronchanteric Bursa/Intraarticular Procedure code (CPT) selection complete Assessment & Plan Assessment & Plan (1) Primary osteoarthritis of knees, bilateral: Code(s): M17.0 - Bilateral primary osteoarthritis of knee Category: Medical Plan: Plan was to proceed with gel injection today. Bilateral knee Gel-One Injection performed today which the patient tolerated well. he will rest ice and use anti-inflammatories as needed for the next several days. He understands he can have these injections likely every 6 months if needed. Steroid every 3 months. He will see me back as needed. Coding Level of Care Code Procedure Only Diagnoses Primary osteoarthritis of knees, bilateral M17.0 CPT Codes Coding - Joint 7: 74674 - Glenohumeral/Tronchanteric Bursa/Intraarticular ([id number])
--- OUTSIDE RECORDS SUMMARY | 2024-11-20 09:35 | XMS_ITS | Clinical Summary ---
Author Organization [facility] Address [address] [place] [address] Phone Care Team Providers Care Trust And Estates Attorney Name Role Phone Clayton French MD Primary Care Provider [phone] Allergies No known active allergies Medications dicyclomine [...] Insurance MEDICARE HMO REPLACEMENT MEDICARE HMO [place] [address] [place] [address] MEDICARE HMO REPLACEMENT [employer] MEDICARE HMO REPLACEMENT [employer] [place] MEDICARE [place]MO REPLACEMENT [employer] MEDICARE HMO REPLACEMENT Care Teams Trust And Estates Attorney Relationship Specialty Start Date End Date Clayton French MD [address] [place] [id number] PCP - General Internal Medicine 09/04/22 Additional Source Comments The information contained in this document represents components of the legal health record. It is not the complete legal health record.[facility]
--- OUTSIDE RECORDS SUMMARY | 2024-11-20 09:36 | XMS_ITS | Patient Health Record ---
[facility] Address [address] [place] [address] Care Team Providers Care Wrapping Machine Tender Name Role Phone Terry French MDneth Primary Care Provider John Kay Unavailable [phone] Allergies Allergen (clinical drug ingredient) Drug/Non Drug [...] Status Risk Notes Problem Acquired hallux valgus (96148060) Hallux valgus (acquired), left foot (M20.12) Active confirmed Problem Non-pressure chronic ulcer of other part of right foot with fat layer exposed (L97.512) Active confirmed Problem Chronic ulcer of foot (451560860) Non-pressure chronic ulcer of other part of left foot with fat layer exposed (L97.522) Active confirmed Problem Acquired hallux valgus (00584951) Hallux valgus (acquired), right foot (M20.11) Active confirmed Plan Of Treatment Pending Test Test Name Order Date [id number] SKIN/TISSUE 09/29/2020 77863 I&D ABSCESS- SIMPLE,SINGLE 020 Insurance Providers Payer Name Payer Address Payer Phone Subscriber Number Group Number Insured Name Patient Relationship to Insured Coverage Start Date Coverage End Date [facility] [address] [place] [address] [phone] [id number] Christian Becker Self - patient is the insured Medical (General) History Medical History History ICD Code Cholesterol Measles Mumps Chicken pox Surgical History Surgery Date(Month/Year)
== END 2024-11-20 10:17 | disposition home or self-care (01) ==
LOC: HO.HOS 09:24
PROVIDERS: PCP Internal Medicine; Visit Provider Physician Assistant
DX: M17.0 Bilateral primary osteoarthritis of knee (principal)
CPT/HCPCS: 20610

== ENCOUNTER → 2024-11-20 09:24 | Outpatient (BNVA) | payer MEDICARE, SELFPAY | PROVIDERS: PCP Internal Medicine; Visit Provider Physician Assistant | DX: M17.0 Bilateral primary osteoarthritis of knee (principal); K58.9 Irritable bowel syndrome, unspecified; E78.00 Pure hypercholesterolemia, unspecified; R03.0 Elevated blood-pressure reading, without diagnosis of hypertension; Z87.891 Personal history of nicotine dependence | CPT/HCPCS: 20610; J7326 ==

== ENCOUNTER 2024-12-04 14:10 | Outpatient (AMB) | payer MEDICARE, SELFPAY ==
--- OUTSIDE RECORDS SUMMARY | 2024-12-04 14:13 | XMS_ITS | Patient Health Record ---
[facility] Address [address] [place] [address] Care Team Providers Care Lead Vulcanizing Operator Name Role Phone Terry French MDneth Primary Care Provider John Kay Unavailable [phone] Allergies Allergen (clinical drug ingredient) Drug/Non Drug [...] Status Risk Notes Problem Acquired hallux valgus (66078700) Hallux valgus (acquired), left foot (M20.12) Active confirmed Problem Non-pressure chronic ulcer of other part of right foot with fat layer exposed (L97.512) Active confirmed Problem Chronic ulcer of foot (980958015) Non-pressure chronic ulcer of other part of left foot with fat layer exposed (L97.522) Active confirmed Problem Acquired hallux valgus (80886397) Hallux valgus (acquired), right foot (M20.11) Active confirmed Plan Of Treatment Pending Test Test Name Order Date [id number] SKIN/TISSUE 09/29/2020 45078 I&D ABSCESS- SIMPLE,SINGLE 020 Insurance Providers Payer Name Payer Address Payer Phone Subscriber Number Group Number Insured Name Patient Relationship to Insured Coverage Start Date Coverage End Date [facility] [address] [place] [address] [phone] [id number] Christian Becker Self - patient is the insured Medical (General) History Medical History History ICD Code Cholesterol Measles Mumps Chicken pox Surgical History Surgery Date(Month/Year)
[2024-12-04 14:19] VITALS: BP 88/64; PULSE 74; O2SAT 85; BMI 25.0
--- NOTE | 2024-12-04 14:19 | HO.NEPHOV ---
Vital Signs 12/04/24 14:19 Height 5 ft 9 in Weight 169 lb BMI 25.0 BP 88/64 L Blood Pressure Location Lt brachial Position Sitting Pulse 74 Pulse Source Pulse Oximeter Pulse Oximetry (%) 85 L Oxygen Delivery Method Room Air Intake Visit Reasons: INP: Proteinuria-Conf Direct Care Worker Required: No Accompanied by: Spouse Allergies lactose (LACTOSE) Allergy (Severe, Verified 12/04/24 14:21) DIARHEA, abd pain, bloating, Medication List - Last Reconciled 12/04/24 by Oren Denney MD dicyclomine 20 mg PO TID 30 days gabapentin 600 mg PO BEDTIME 30 days pravastatin 40 mg PO DAILY 90 days HPI Comments Details: The patient is a 74-year-old male presenting with reevaluation of chronic kidney disease and associated symptoms. Reports bilateral leg swelling for two weeks after taking Celebrex and nabumetone for knee pain, which were discontinued due to renal concerns. History of knee osteoarthritis, prescribed Celebrex and nabumetone by an military source operations specialist, with knee pain but no surgeries. Denies hypertension, diabetes, or cardiac issues, and reports no urinary or gastrointestinal symptoms. Kidney function reduced to 56% in October, with lightheadedness and low blood pressure at 88/64 mmHg. History of smoking for 50 years, quit eight years ago, denies alcohol use. Groin lump evaluated with imaging, no definitive diagnosis. MEDICAL HISTORY: - Chronic kidney disease - Knee osteoarthritis MEDICATIONS: - Gabapentin for pain management - Pravastatin - Dicyclomine SOCIAL HISTORY: - Former smoker, quit eight years ago after 50 years of smoking - Retired, previously worked in a shop - Denies alcohol consumption DIAGNOSTIC RESULTS: - Labs: Kidney function at 56% in October - Imaging: Groin lump evaluated with CAT scan and ultrasound, no definitive diagnosis PFSH Medical History Primary osteoarthritis of left hip Primary osteoarthritis of knees, bilateral Abnormal colonoscopy History of adenomatous polyp of colon Irritable bowel syndrome (IBS) Tubular adenoma of colon Elevated blood pressure reading Pure hypercholesterolemia Surgical History Hx of colonoscopy History of eye surgery Family History Father Prostate cancer Brother Hepatitis Social History Housing: Apartment Are you a primary critical care technician to a significant other at home: No Do you presently have visiting nurse or other home services: No Alcohol intake: former Patient Tobacco Use Status: Former Tobacco user e-Cigarette/Vaping Use: Former Use Second Hand Smoke Exposure: Yes service: No Current occupational status: retired Cognitive needs: No Hearing needs: Yes Vision needs: Yes Review of Systems Const Denies fever(s) and Denies weight loss Card Denies chest pain Resp Denies cough and Denies hemoptysis GI Denies abdominal pain, Denies diarrhea and Denies nausea Musc Denies back pain Neuro Denies focal weakness Physical Exam Vital Signs: Last Vital Signs Pulse 74 12/04/24 14:19 BP 88/64 L 12/04/24 14:19 Pulse Ox 85 L 12/04/24 14:19 Oxygen Delivery Method Room Air 12/04/24 14:19 BMI result Body Mass Index 25.0 Const General: comfortable Nutritional Appearance: well nourished Orientation/consciousness: patient oriented x3 HEENT Head: No normal to inspection Mouth: moist mucous membranes Neck Neck: Yes supple and Yes no JVD Resp Auscultation: clear to auscultation bilaterally, no rales and rub present Cardio Jugular venous distension: no JVD Palpation: no palpable S3 and no palpable S4 Heart sounds: no rubs GI Palpation (GI): Soft to palpation and nontender Percussion: No Fluid wave present General: Yes no CVA tenderness Back/Spine/Pelvis Back: no CVA tenderness Skin General skin exam: no rashes or lesions noted Neuro General: patient oriented x3 Extrem General: Yes no pedal edema and No clubbing Results Reviewed Nephrology Results: Hgb, (14.0-18.0) 12.5 g/dl L 12/04/24 WBC, (4.8-10.8) 8.4 X10*3/uL 12/04/24 Plt Count, (160-400) 507 X10*3/uL H 12/04/24 Sodium, (135-145) 139 mmol/L 12/04/24 Potassium, (3.3-5.1) 4.0 mmol/L 12/04/24 Chloride, (96-108) 105 mmol/L 12/04/24 Carbon Dioxide, (22-29) 27 mmol/L 12/04/24 BUN, (9-16) 15 mg/dL 12/04/24 Creatinine, (0.5-1.4) 1.10 mg/dL 12/04/24 Calcium, (8.4-10.2) 8.8 mg/dL 12/04/24 Urine Protein, (Neg-Trace) 300 (3+) mg/dL H 12/04/24 Urine Creatinine 241.29 mg/dL 12/04/24 Assessment & Plan Assessment & Plan (1) Proteinuria: Code(s): R80.9 - Proteinuria, unspecified Category: Medical Qualifiers: Proteinuria type: unspecified Qualified Code(s): R80.9 - Proteinuria, unspecified (2) CKD (chronic kidney disease): Code(s): N18.9 - Chronic kidney disease, unspecified Category: Medical (3) Proteinuria: Code(s): R80.9 - Proteinuria, unspecified Category: Medical Qualifiers: Proteinuria type: unspecified Qualified Code(s): R80.9 - Proteinuria, unspecified Plan Work up initiated -Blood and urine tests ordered - Administer diuretic cautiously - Lasix 20 mg daily Midodrine 5 mg PO QD due to low BP - Follow-up visit scheduled for next week - Recommend low-salt diet - ultrasound Orders: Orders Complete Blood Count Auto Diff 12/04/24 N18.9 - Chronic kidney disease, unspecified, R80.9 - Proteinuria, unspecified Total Protein Urine Random 12/04/24 N18.9 - Chronic kidney disease, unspecified, R80.9 - Proteinuria, unspecified KELY Reflex Titer and Pattern 12/04/24 N18.9 - Chronic kidney disease, unspecified, R80.9 - Proteinuria, unspecified Myeloperoxidase Antibody 12/04/24 N18.9 - Chronic kidney disease, unspecified, R80.9 - Proteinuria, unspecified Complement C3 12/04/24 N18.9 - Chronic kidney disease, unspecified, R80.9 - Proteinuria, unspecified Immunoglobulin A 12/04/24 N18.9 - Chronic kidney disease, unspecified, R80.9 - Proteinuria, unspecified US renal BI 12/04/24 N18.9 - Chronic kidney disease, unspecified, R80.9 - Proteinuria, unspecified Comprehensive Met. Panel 12/04/24 N18.9 - Chronic kidney disease, unspecified, R80.9 - Proteinuria, unspecified UA and rflx microscopic 12/04/24 N18.9 - Chronic kidney disease, unspecified, R80.9 - Proteinuria, unspecified Creatinine Urine 12/04/24 N18.9 - Chronic kidney disease, unspecified, R80.9 - Proteinuria, unspecified Neutrophil Cytoplasma Ab 12/04/24 N18.9 - Chronic kidney disease, unspecified, R80.9 - Proteinuria, unspecified Proteinase 3 PR3 Antibodies 12/04/24 N18.9 - Chronic kidney disease, unspecified, R80.9 - Proteinuria, unspecified Anti Glomerular Basement Memb 12/04/24 N18.9 - Chronic kidney disease, unspecified, R80.9 - Proteinuria, unspecified Complement C4 12/04/24 N18.9 - Chronic kidney disease, unspecified, R80.9 - Proteinuria, unspecified Phospholipase A2 Receptor Pnl 12/04/24 N18.9 - Chronic kidney disease, unspecified, R80.9 - Proteinuria, unspecified Cortisol, Free 12/04/24 N18.9 - Chronic kidney disease, unspecified, R80.9 - Proteinuria, unspecified Medications: New midodrine 5 mg PO DAILY 7 tabs 0RF furosemide (Lasix) 20 mg PO DAILY 30 tabs 0RF Coding Level of Care Code New Pt Level 4 (44418) Diagnoses Proteinuria, unspecified type R80.9 Proteinuria type: unspecified CKD (chronic kidney disease) N18.9
== END 2024-12-04 14:46 | disposition home or self-care (01) ==
LOC: HO.HKA 14:11
PROVIDERS: PCP Internal Medicine; Visit Provider Internal Medicine Hypertension Specialist
DX: R80.9 Proteinuria, unspecified (principal); N18.9 Chronic kidney disease, unspecified
CPT/HCPCS: 99204

== ENCOUNTER 2024-12-04 14:10 | Outpatient (REF) | payer MEDICARE, SELFPAY ==
[2024-12-04 15:23] LABS: MANUAL DIFF FLAG NO
[2024-12-04 15:56] LABS: Hematocrit 37.6 % (42.0-52.0); Hemoglobin 12.5 g/dl (14.0-18.0); Imm Gran Abs Auto 0.04 X10*3/uL (0.00-0.03); Imm Gran Pct Auto 0.5 % (0.0-0.4); Lymphocytes Absolute Auto 1.7 X10*3/uL (1.2-4.9); Mean Corpuscular HGB Conc 33.2 g/dl (31.0-36.0); Mean Corpuscular Hemoglobin 31.7 pg (27.0-33.0); Mean Corpuscular Volume 95.4 fL (80.0-98.0); NRBC Abs Auto 0.000 X10*3/uL (0.0-0.012); NRBC Pct Auto 0.0 /100WBC (0.0-0.2); Platelet Count 507 X10*3/uL (160-400); Red Blood Count 3.94 X10*6/uL (4.60-5.80); White Blood Count 8.4 X10*3/uL (4.8-10.8)
[2024-12-04 16:00] LABS: Appearance Urine Clear; Glucose Urine UA Negative (Negative); PH 5.5 (5.0-9.0); Specific Gravity - Urine 1.025 (1.005-1.025); UMIC TRIGGER UA YES
[2024-12-04 16:51] LABS: Alanine Aminotransferase 11 U/L (0-40); Albumin Level 2.4 g/dL (3.5-5.0); Alkaline Phosphatase 138 U/L (39-117); Anion Gap 11 (12-20); Aspartate Amino Transferase 33 U/L (5-37); Blood Urea Nitrogen 15 mg/dL (9-16); Calcium 8.8 mg/dL (8.4-10.2); Carbon Dioxide 27 mmol/L (22-29); Chloride 105 mmol/L (96-108); Estimated Glomerular Filt Rate > 60; Potassium 4.0 mmol/L (3.3-5.1); Sodium 139 mmol/L (135-145); Total Protein 6.7 g/dL (6.5-8.0)
[2024-12-04 17:27] LABS: Total Protein Urine Random 376 mg/dL (<12)
[2024-12-05 06:33] LABS: Immunoglobulin A 526 mg/dL (70-320)
[2024-12-08 11:34] LABS: Anti Nuclear Antibody Screen NEGATIVE (NEGATIVE)
[2024-12-08 12:53] LABS: Neutrophil Cyto Ab Screen NEGATIVE (NEGATIVE)
[2024-12-08 21:04] LABS: Anti Glomerular Basement Memb <1.0 AI; Proteinase 3 PR3 Antibodies <1.0 AI
[2024-12-10 20:23] LABS: Phospholipase A2 IgG ELISA <4 RU/mL; Phospholipase A2 IgG IFA NEGATIVE (NEGATIVE)
== END 2024-12-04 14:11 | disposition home or self-care (01) ==
LOC: HO.LAB 14:10
PROVIDERS: PCP Internal Medicine; Visit Provider Internal Medicine Hypertension Specialist
DX: Z01.84 Encounter for antibody response examination (principal); R80.9 Proteinuria, unspecified; N18.9 Chronic kidney disease, unspecified; Z87.891 Personal history of nicotine dependence; Z79.899 Other long term (current) drug therapy
CPT/HCPCS: 36415; 80053; 81001; 81003; 82530; 82570; 82784; 83520; 84156; 85025; 86021; 86036; 86038; 86160; 86255; 99202

== ENCOUNTER 2024-12-10 14:10 | Outpatient (AMB) | payer MEDICARE, SELFPAY ==
--- NOTE | 2024-12-10 14:18 | HO.NEPHOV_ITS ---
Vital Signs 12/10/24 14:20 Height 5 ft 9 in Weight 162 lb BMI 23.9 BP 98/66 Blood Pressure Location Rt brachial Position Sitting Pulse 107 H Pulse Source Pulse Oximeter Pulse Oximetry (%) 96 Oxygen Delivery Method Room Air Intake Visit Reasons: 1 week fu/ Conf Building Official Required: No Accompanied by: Spouse Allergies lactose (LACTOSE) Allergy (Severe, Verified 12/10/24 14:22) DIARHEA, abd pain, bloating, Medication List - Last Reconciled 12/10/24 by Oren Denney MD dicyclomine 20 mg PO TID 30 days furosemide (Lasix) 20 mg PO DAILY gabapentin 600 mg PO BEDTIME 30 days midodrine 5 mg PO DAILY pravastatin 40 mg PO DAILY 90 days HPI Comments Details: The patient is a 74-year-old male presenting with reevaluation of chronic kidney disease and associated symptoms. Reports bilateral leg swelling for two weeks after taking Celebrex and nabumetone for knee pain, which were discontinued due to renal concerns. History of knee osteoarthritis, prescribed Celebrex and nabumetone by an magneto specialist, with knee pain but no surgeries. Denies hypertension, diabetes, or cardiac issues, and reports no urinary or gastrointestinal symptoms. Kidney function reduced to 56% in October, with lightheadedness and low blood pressure at 88/64 mmHg. History of smoking for 50 years, quit eight years ago, denies alcohol use. Groin lump evaluated with imaging, no definitive diagnosis. MEDICAL HISTORY: - Chronic kidney disease - Knee osteoarthritis MEDICATIONS: - Gabapentin for pain management - Pravastatin - Dicyclomine SOCIAL HISTORY: - Former smoker, quit eight years ago after 50 years of smoking - Retired, previously worked in a shop - Denies alcohol consumption 12/10/24 The patient is a 74-year-old male presenting with peripheral edema and proteinuria. Swelling has improved but remains present. Low blood pressure causes lightheadedness upon standing. Diuretics have led to weight loss from 169 to 162 pounds. The patient responds well to low-dose diuretics. Proteinuria is significant at 1500 mg, with normal blood and urine tests otherwise. The cause of proteinuria is unknown, requiring further tests. MEDICATIONS: - Diuretics: For management of peripheral edema - Blood pressure medication: To manage hypotension DIAGNOSTIC RESULTS: - Urine test: Proteinuria at 1500 mg [facility] Medical History Primary osteoarthritis of left hip Primary osteoarthritis of knees, bilateral Abnormal colonoscopy History of adenomatous polyp of colon Irritable bowel syndrome (IBS) Tubular adenoma of colon Elevated blood pressure reading Pure hypercholesterolemia Surgical History Hx of colonoscopy History of eye surgery Family History Father Prostate cancer Brother Hepatitis Social History Housing: Apartment Are you a primary acute care physical therapist to a significant other at home: No Do you presently have visiting nurse or other home services: No Alcohol intake: former Patient Tobacco Use Status: Former Tobacco user e-Cigarette/Vaping Use: Former Use Second Hand Smoke Exposure: Yes service: No Current occupational status: retired Cognitive needs: No Hearing needs: Yes Vision needs: Yes Physical Exam Vital Signs: Last Vital Signs Pulse 107 H 12/10/24 14:20 BP 98/66 12/10/24 14:20 Pulse Ox 96 12/10/24 14:20 Oxygen Delivery Method Room Air 12/10/24 14:20 BMI result Body Mass Index 23.9 Const General: comfortable Nutritional Appearance: well nourished Orientation/consciousness: patient oriented x3 HEENT Head: No normal to inspection Mouth: moist mucous membranes Neck Neck: Yes supple and Yes no JVD Resp Auscultation: clear to auscultation bilaterally and no rales Cardio Jugular venous distension: no JVD Palpation: no palpable S3 and no palpable S4 Heart sounds: no rubs GI Palpation (GI): Soft to palpation and nontender Percussion: No Fluid wave present General: Yes no CVA tenderness Back/Spine/Pelvis Back: no CVA tenderness Skin General skin exam: no rashes or lesions noted Neuro General: patient oriented x3 Extrem General: Yes no pedal edema and No clubbing Results Reviewed Nephrology Results: Hgb, (14.0-18.0) 12.5 g/dl L 12/04/24 WBC, (4.8-10.8) 8.4 X10*3/uL 12/04/24 Plt Count, (160-400) 507 X10*3/uL H 12/04/24 Sodium, (135-145) 139 mmol/L 12/04/24 Potassium, (3.3-5.1) 4.0 mmol/L 12/04/24 Chloride, (96-108) 105 mmol/L 12/04/24 Carbon Dioxide, (22-29) 27 mmol/L 12/04/24 BUN, (9-16) 15 mg/dL 12/04/24 Creatinine, (0.5-1.4) 1.10 mg/dL 12/04/24 Calcium, (8.4-10.2) 8.8 mg/dL 12/04/24 Urine Protein, (Neg-Trace) 300 (3+) mg/dL H 12/04/24 Urine Creatinine 241.29 mg/dL 12/04/24 Assessment & Plan Assessment & Plan (1) Proteinuria: Code(s): R80.9 - Proteinuria, unspecified Category: Medical Qualifiers: Proteinuria type: unspecified Qualified Code(s): R80.9 - Proteinuria, unspecified (2) CKD (chronic kidney disease): Code(s): N18.9 - Chronic kidney disease, unspecified Category: Medical (3) Proteinuria: Code(s): R80.9 - Proteinuria, unspecified Category: Medical Qualifiers: Proteinuria type: unspecified Qualified Code(s): R80.9 - Proteinuria, unspecified Plan Renal function is stable Has a about 1.5 g of proteinuria. Serological workup has been essentially unremarkable thus far. Workup in progress Keep Lasix 20 mg daily Midodrine 5 mg PO QD due to low BP Continue with low-salt diet. - await ultrasound Orders: Orders Total Protein Urine Random 2 Weeks R80.9 - Proteinuria, unspecified Basic Metabolic Panel 2 Weeks R80.9 - Proteinuria, unspecified Creatinine Urine 2 Weeks R80.9 - Proteinuria, unspecified UA and rflx microscopic 2 Weeks R80.9 - Proteinuria, unspecified Immunofixation Pnl, Serum 2 Weeks R80.9 - Proteinuria, unspecified Medications: Refilled midodrine 5 mg PO DAILY 30 tabs 0RF Coding Level of Care Code Est Pt Level 4 (20251) Diagnoses Proteinuria, unspecified type R80.9 Proteinuria type: unspecified CKD (chronic kidney disease) N18.9
[2024-12-10 14:20] VITALS: BP 98/66; PULSE 107; O2SAT 96; BMI 23.9
--- OUTSIDE RECORDS SUMMARY | 2024-12-10 14:20 | XMS_ITS | Clinical Summary ---
Author Organization [facility] Address [address] [place] [address] Phone Care Team Providers Care Ultrasound Technologist Name Role Phone Clayton French MD Primary Care Provider +1 [phone] Allergies No known active allergies Medications dicyclomine [...] Insurance MEDICARE HMO REPLACEMENT MEDICARE HMO [place] [address] [place] [address] MEDICARE HMO REPLACEMENT [employer] MEDICARE HMO REPLACEMENT [employer] [place] MEDICARE HMO REPLACEMENT [employer] MEDICARE HMO REPLACEMENT Care Teams Ultrasound Technologist Relationship Specialty Start Date End Date Clayton French MD [address] [place] [phone] PCP - General Internal Medicine 09/04/22 Additional Source Comments The information contained in this document represents components of the legal health record. It is not the complete legal health record.[facility]
== END 2024-12-10 14:42 | disposition home or self-care (01) ==
LOC: HO.HKA 14:11
PROVIDERS: PCP Internal Medicine; Visit Provider Internal Medicine Hypertension Specialist
DX: R80.9 Proteinuria, unspecified (principal); N18.9 Chronic kidney disease, unspecified
CPT/HCPCS: 99214

== ENCOUNTER → 2024-12-10 14:10 | Outpatient (BNVA) | payer MEDICARE, SELFPAY | PROVIDERS: PCP Internal Medicine; Visit Provider Internal Medicine Hypertension Specialist | DX: R80.9 Proteinuria, unspecified (principal); N18.9 Chronic kidney disease, unspecified; R60.9 Edema, unspecified | CPT/HCPCS: 99212 ==

== ENCOUNTER 2024-12-16 08:24 | Outpatient (REF) | payer MEDICARE, SELFPAY ==
--- NOTE | ~2024-12-16 | US_ITS ---
CLINICAL HISTORY: N18.9 - Chronic kidney disease, unspecified US Renal Comparison: None provided Findings: Right kidney normal size and echotexture, 10.3 cm length. Left kidney normal size and echotexture, 10.5 cm length. 10 mm upper pole cyst with milk of calcium. 2 mm lower pole calculus, nonobstructing. No hydronephrosis of either kidney. Normal color Doppler IMPRESSION: Nonobstructing 2 mm calculus within the left kidney. Benign left renal cyst. This document has been electronically signed by: Ken Zarate MD on 12/16/2024 11:05:52
--- OUTSIDE RECORDS SUMMARY | 2024-12-16 08:44 | XMS_ITS | Clinical Summary ---
Author Organization [facility] Address [address] [place] [address] Phone Care Team Providers Care Court Interpreter Name Role Phone Clayton French MD Primary Care Provider [phone] [phone] Allergies No known active allergies Medications dicyclomine [...] Insurance MEDICARE HMO REPLACEMENT MEDICARE HMO [place] [address] [place] [address] MEDICARE HMO REPLACEMENT [employer] [place] [employer] H[employer] REPLACEMENT [employer] [place] MED[employer] HMO REPLACEMENT [employer] [place] [employer] H[employer] REPLACEMENT Care Teams Court Interpreter Relationship Specialty Start Date End Date Clayton French MD [address] [place] [id number] PCP - General Internal Medicine 09/04/22 Additional Source Comments The information contained in this document represents components of the legal health record. It is not the complete legal health record.[facility]
--- OUTSIDE RECORDS SUMMARY | 2024-12-16 08:45 | XMS_ITS | Patient Health Record ---
[facility] Address [address] [place] [place] [address] Care Team Providers Care Sales Order Coordinator Name Role Phone Terry French MDneth Primary Care Provider John Kay Unavailable [phone] Allergies Allergen (clinical drug ingredient) Drug/Non Drug [...] Status Risk Notes Problem Acquired hallux valgus (68012957) Hallux valgus (acquired), left foot (M20.12) Active confirmed Problem Non-pressure chronic ulcer of other part of right foot with fat layer exposed (L97.512) Active confirmed Problem Chronic ulcer of foot (875004114) Non-pressure chronic ulcer of other part of left foot with fat layer exposed (L97.522) Active confirmed Problem Acquired hallux valgus (60941433) Hallux valgus (acquired), right foot (M20.11) Active confirmed Plan Of Treatment Pending Test Test Name Order Date [id number] SKIN/TISSUE 09/29/2020 97473 I&D ABSCESS- SIMPLE,SINGLE 020 Insurance Providers Payer Name Payer Address Payer Phone Subscriber Number Group Number Insured Name Patient Relationship to Insured Coverage Start Date Coverage End Date [facility] [address] [place] [address] [id number] Christian Becker Self - patient is the insured Medical (General) History Medical History History ICD Code Cholesterol Measles Mumps Chicken pox Surgical History Surgery Date(Month/Year)
== END 2024-12-16 08:25 | disposition home or self-care (01) ==
LOC: HO.US 08:24
PROVIDERS: PCP Internal Medicine; Visit Provider Internal Medicine Hypertension Specialist
DX: N18.9 Chronic kidney disease, unspecified (principal); R80.9 Proteinuria, unspecified
CPT/HCPCS: 76775

== ENCOUNTER → 2024-12-16 08:26 | Outpatient (BNV) | payer MEDICARE, SELFPAY | PROVIDERS: PCP Internal Medicine; Visit Provider Radiology Vascular & Interventional Radiology | DX: N20.0 Calculus of kidney (principal) | CPT/HCPCS: 76775 ==

== ENCOUNTER 2024-12-30 08:03 | Outpatient (REF) | payer MEDICARE, SELFPAY ==
--- OUTSIDE RECORDS SUMMARY | 2024-12-30 08:55 | XMS_ITS | Patient Health Record ---
[facility] Address [address] [facility] [address] Care Team Providers Care Office Services Associate Name Role Phone Terry French MDneth Primary Care Provider John Kay Unavailable [phone] Allergies Allergen (clinical drug ingredient) Drug/Non Drug [...] Status Risk Notes Problem Acquired hallux valgus (63617459) Hallux valgus (acquired), left foot (M20.12) Active confirmed Problem Non-pressure chronic ulcer of other part of right foot with fat layer exposed (L97.512) Active confirmed Problem Chronic ulcer of foot (431244086) Non-pressure chronic ulcer of other part of left foot with fat layer exposed (L97.522) Active confirmed Problem Acquired hallux valgus (79036104) Hallux valgus (acquired), right foot (M20.11) Active confirmed Plan Of Treatment Pending Test Test Name Order Date [id number] SKIN/TISSUE 09/29/2020 82990 I&D ABSCESS- SIMPLE,SINGLE 020 Insurance Providers Payer Name Payer Address Payer Phone Subscriber Number Group Number Insured Name Patient Relationship to Insured Coverage Start Date Coverage End Date [facility] [address] [place] [address] [id number] Christian Becker Self - patient is the insured Medical (General) History Medical History History ICD Code Cholesterol Measles Mumps Chicken pox Surgical History Surgery Date(Month/Year)
--- OUTSIDE RECORDS SUMMARY | 2024-12-30 08:55 | XMS_ITS | Clinical Summary ---
Author Organization [facility] Address [address] [place] [address] Phone Care Team Providers Care Irrigation Equipment Mechanic Name Role Phone Clayton French MD Primary Care Provider [phone] Allergies No known active allergies Medications dicyclomine [...] 2 - PPSV23) 01/10/2022 01/10/2021, 12/11/2019, 12/20/2016 INFLUENZA VACCINE (#1) 2024 , 01/10/2021, 12/11/2019, Additional history exists COVID-19 VACCINE (2024- season) 2024 01/29/2022, 01/25/2021, 07/15/2020, Additional history exists RSV [...] topic Medical Devices Not on file Insurance [employer] MED[employer] HMO REPLACEMENT [employer] [place] MED[employer] HMO REPLACEMENT MEDICARE HMO REPLACEMENT MEDICARE HMO REPLACEMENT MEDICARE HMO REPLACEMENT [employer] [place] MEDIC[employer] HMO REPLACEMENT Care Teams Irrigation Equipment Mechanic Relationship Specialty Start Date End Date Clayton French MD [address] [place] [address] PCP - General Internal Medicine 09/04/22 Additional Source Comments The information contained in this document represents components of the legal health record. It is not the complete legal health record.[facility]
[2024-12-30 09:17] LABS: Appearance Urine Clear; Glucose Urine UA Negative (Negative); PH 7.0 (5.0-9.0); Specific Gravity - Urine 1.015 (1.005-1.025)
[2024-12-30 09:56] LABS: Anion Gap 13 (12-20); Blood Urea Nitrogen 11 mg/dL (9-16); Calcium 9.3 mg/dL (8.4-10.2); Carbon Dioxide 24 mmol/L (22-29); Chloride 108 mmol/L (96-108); Estimated Glomerular Filt Rate > 60; Potassium 4.0 mmol/L (3.3-5.1); Sodium 141 mmol/L (135-145)
[2024-12-30 09:57] LABS: Total Protein Urine Random 20 mg/dL (<12)
== END 2024-12-30 08:04 | disposition home or self-care (01) ==
LOC: HO.LAB 08:03
PROVIDERS: PCP Internal Medicine; Visit Provider Internal Medicine Hypertension Specialist
DX: R80.9 Proteinuria, unspecified (principal); N18.9 Chronic kidney disease, unspecified
CPT/HCPCS: 36415; 80048; 81003; 82570; 82784; 84156; 86334

== ENCOUNTER 2025-01-05 14:12 | Outpatient (AMB) | payer MEDICARE, SELFPAY ==
[2025-01-05 14:17] VITALS: BP 114/70; PULSE 86; O2SAT 93; BMI 23.9
--- NOTE | 2025-01-05 14:17 | HO.NEPHOV ---
Vital Signs 01/05/25 14:17 Height 5 ft 9 in Weight 162 lb BMI 23.9 BP 114/70 Blood Pressure Location Lt brachial Position Sitting Pulse 86 Pulse Source Pulse Oximeter Pulse Oximetry (%) 93 Oxygen Delivery Method Room Air Intake Visit Reasons: 3-4 weeks fu-LVM Accompanied by: Spouse Allergies lactose (LACTOSE) Allergy (Severe, Verified 01/05/25 14:20) DIARHEA, abd pain, bloating, Medication List - Last Reconciled 01/05/25 by Oren Denney MD dicyclomine 20 mg PO TID 30 days gabapentin 600 mg PO BEDTIME 30 days midodrine 5 mg PO DAILY pravastatin 40 mg PO DAILY 90 days HPI Comments Details: The patient is a 74-year-old male presenting with reevaluation of chronic kidney disease and associated symptoms. Reports bilateral leg swelling for two weeks after taking Celebrex and nabumetone for knee pain, which were discontinued due to renal concerns. History of knee osteoarthritis, prescribed Celebrex and nabumetone by an intelligence research specialist, with knee pain but no surgeries. Denies hypertension, diabetes, or cardiac issues, and reports no urinary or gastrointestinal symptoms. Kidney function reduced to 56% in October, with lightheadedness and low blood pressure at 88/64 mmHg. History of smoking for 50 years, quit eight years ago, denies alcohol use. Groin lump evaluated with imaging, no definitive diagnosis. MEDICAL HISTORY: - Chronic kidney disease - Knee osteoarthritis MEDICATIONS: - Gabapentin for pain management - Pravastatin - Dicyclomine SOCIAL HISTORY: - Former smoker, quit eight years ago after 50 years of smoking - Retired, previously worked in a shop - Denies alcohol consumption 12/10/24 The patient is a 74-year-old male presenting with peripheral edema and proteinuria. Swelling has improved but remains present. Low blood pressure causes lightheadedness upon standing. Diuretics have led to weight loss from 169 to 162 pounds. The patient responds well to low-dose diuretics. Proteinuria is significant at 1500 mg, with normal blood and urine tests otherwise. The cause of proteinuria is unknown, requiring further tests. MEDICATIONS: - Diuretics: For management of peripheral edema - Blood pressure medication: To manage hypotension DIAGNOSTIC RESULTS: - Urine test: Proteinuria at 1500 mg 01/05/25 The patient is a 74-year-old male presenting with chronic kidney disease He has low BP on Midodrine Also found ot have RBBB And partial LBBB in ED Kidney function has improved with cr down fomr 1.2 to 1.04 and has reduced proteinuria from 1560 mg to 115 mg. ? Why Ultrasound showed normal kidneys with tiny non obstructing stone and benign cyst, requiring no action. The patient experienced hypotension and fainting after furosemide, which was stopped. Blood pressure is stable at 114/70 mmHg with midodrine, and diuretics are no longer needed. Diagnosed with left and right bundle branch block, requiring cardiology evaluation. Medical History: - Chronic Kidney Disease - Nephrolithiasis - Benign Renal Cyst - Left and Right Bundle Branch Block - Hypotension Medications: - Midodrine: Used to maintain blood pressure Diagnostic Results: - Labs: Proteinuria reduced from 1000 mg to 100 mg - Imaging: Ultrasound showed a small kidney stone and benign renal cyst 01/07/25 The patient is a 74-year-old male presenting with chronic kidney disease and cardiovascular concerns. Kidney function has improved with reduced proteinuria from 1000 mg to 100 mg. Ultrasound showed a small kidney stone and benign cyst, requiring no action. The patient experienced hypotension and fainting after furosemide, which was stopped. Blood pressure is stable at 114/70 mmHg with midodrine, and diuretics are no longer needed. Diagnosed with left and right bundle branch block, requiring cardiology evaluation. Awaiting follow-up with Dr. Miller for cardiac assessment. Medical History: - Chronic Kidney Disease - Nephrolithiasis - Benign Renal Cyst - Left and Right Bundle Branch Block - Hypotension Medications: - Midodrine: Used to maintain blood pressure Diagnostic Results: - Labs: Proteinuria reduced from 1000 mg to 100 mg - Imaging: Ultrasound showed a small kidney stone and benign renal cyst [facility] Medical History Primary osteoarthritis of left hip Primary osteoarthritis of knees, bilateral Abnormal colonoscopy History of adenomatous polyp of colon Irritable bowel syndrome (IBS) Tubular adenoma of colon Elevated blood pressure reading Pure hypercholesterolemia Surgical History Hx of colonoscopy History of eye surgery Family History Father Prostate cancer Brother Hepatitis Social History Housing: Apartment Are you a primary primary care nurse to a significant other at home: No Do you presently have visiting nurse or other home services: No Alcohol intake: former Patient Tobacco Use Status: Former Tobacco user e-Cigarette/Vaping Use: Former Use Second Hand Smoke Exposure: Yes service: No Current occupational status: retired Cognitive needs: No Hearing needs: Yes Vision needs: Yes Physical Exam Vital Signs: Last Vital Signs Pulse 86 01/05/25 14:17 BP 114/70 01/05/25 14:17 Pulse Ox 93 01/05/25 14:17 Oxygen Delivery Method Room Air 01/05/25 14:17 BMI result Body Mass Index 23.9 Comfortable Neck supple no JVD. Lungs entry equal no rales. Heart S1-S2 heard no gallop or rub. Abdomen soft nontender. Neuro alert awake oriented. No asterixis. Extremities no edema. Results Reviewed Results Reviewed: Nov 2024 USG Right kidney normal size and echotexture, 10.3 cm length. Left kidney normal size and echotexture, 10.5 cm length. 10 mm upper pole cyst with milk of calcium. 2 mm lower pole calculus, nonobstructing. No hydronephrosis of either kidney. Normal color Doppler IMPRESSION: Nonobstructing 2 mm calculus within the left kidney. Benign left renal cyst. Nephrology Results: Hgb, (14.0-18.0) 12.5 g/dl L 12/04/24 WBC, (4.8-10.8) 8.4 X10*3/uL 12/04/24 Plt Count, (160-400) 507 X10*3/uL H 12/04/24 Sodium, (135-145) 141 mmol/L 12/30/24 Potassium, (3.3-5.1) 4.0 mmol/L 12/30/24 Chloride, (96-108) 108 mmol/L 12/30/24 Carbon Dioxide, (22-29) 24 mmol/L 12/30/24 BUN, (9-16) 11 mg/dL 12/30/24 Creatinine, (0.5-1.4) 1.04 mg/dL 12/30/24 Calcium, (8.4-10.2) 9.3 mg/dL 12/30/24 Urine Protein, (Neg-Trace) Trace mg/dL 12/30/24 Urine Creatinine 173.83 mg/dL 12/30/24 Renal US 12/16/24 Assessment & Plan Assessment & Plan (1) Proteinuria: Code(s): R80.9 - Proteinuria, unspecified Category: Medical Qualifiers: Proteinuria type: unspecified Qualified Code(s): R80.9 - Proteinuria, unspecified (2) CKD (chronic kidney disease): Code(s): N18.9 - Chronic kidney disease, unspecified Category: Medical (3) Proteinuria: Code(s): R80.9 - Proteinuria, unspecified Category: Medical Qualifiers: Proteinuria type: unspecified Qualified Code(s): R80.9 - Proteinuria, unspecified (4) Ectopic cardiac beats: Code(s): I49.49 - Other premature depolarization Category: Medical (5) Bundle branch block: Code(s): I45.4 - Nonspecific intraventricular block Category: Medical Plan Renal function is stable Has a about 1.5 g of proteinuria. Serological workup has been essentially unremarkable thus far. Workup in progress Keep Lasix 20 mg daily Midodrine 5 mg PO QD due to low BP Continue with low-salt diet. 01/05/25 BP optimal with Midodrine NO significant proteinuria now YAHIR resolved - Cr down to 1.04 No need for LAsix at this time RBBB with partial LBBB per ER records- referred to cardiology . Orders: Orders Cortisol, Free 12/28/24 Jodi Rodriguez, DNP, METAL TRIM ERECTOR-BC R80.9 - Proteinuria, unspecified Basic Metabolic Panel 4 Months Oren Denney MD N18.9 - Chronic kidney disease, unspecified Referrals Cardiology Referral Oren Denney MD I45.4 - Nonspecific intraventricular block, I49.49 - Other premature depolarization Coding Level of Care Code Est Pt Level 4 (69620) Diagnoses Proteinuria, unspecified type R80.9 Proteinuria type: unspecified CKD (chronic kidney disease) N18.9 Ectopic cardiac beats I49.49 Bundle branch block I45.4
--- OUTSIDE RECORDS SUMMARY | 2025-01-05 18:01 | XMS_ITS | Patient Health Record ---
[facility] Address [address] [place] [address] Care Team Providers Care Metallurgical Lab Technician Name Role Phone Terry French MDneth Primary Care Provider John Kay Unavailable [phone] Allergies Allergen (clinical drug ingredient) Drug/Non Drug [...] Status Risk Notes Problem Acquired hallux valgus (47812410) Hallux valgus (acquired), left foot (M20.12) Active confirmed Problem Non-pressure chronic ulcer of other part of right foot with fat layer exposed (L97.512) Active confirmed Problem Chronic ulcer of foot (588306402) Non-pressure chronic ulcer of other part of left foot with fat layer exposed (L97.522) Active confirmed Problem Acquired hallux valgus (44485954) Hallux valgus (acquired), right foot (M20.11) Active confirmed Plan Of Treatment Pending Test Test Name Order Date [id number] SKIN/TISSUE 09/29/2020 13270 I&D ABSCESS- SIMPLE,SINGLE 020 Insurance Providers Payer Name Payer Address Payer Phone Subscriber Number Group Number Insured Name Patient Relationship to Insured Coverage Start Date Coverage End Date [facility] [address] [place] [address] [phone] [id number] Christian Becker Self - patient is the insured Medical (General) History Medical History History ICD Code Cholesterol Measles Mumps Chicken pox Surgical History Surgery Date(Month/Year)
--- OUTSIDE RECORDS SUMMARY | 2025-01-05 18:01 | XMS_ITS | Clinical Summary ---
Author Organization [facility] Address [email or web address] [place] [address] Phone Care Team Providers Care Manager Title Name Role Phone Clayton French MD Primary Care Provider [phone] Allergies No known active allergies Medications dicyclomine [...] [place] [employer]ACEMENT Care Teams Manager Title Relationship Specialty Start Date End Date Clayton French MD [address] [place] [address] PCP - General Internal Medicine 09/04/22 Additional Source Comments The information contained in this document represents components of the legal health record. It is not the complete legal health record.[facility]
== END 2025-01-05 14:36 | disposition home or self-care (01) ==
LOC: HO.HKA 14:13
PROVIDERS: PCP Internal Medicine; Visit Provider Internal Medicine Hypertension Specialist
DX: R80.9 Proteinuria, unspecified (principal); N18.9 Chronic kidney disease, unspecified; I49.49 Other premature depolarization; I45.4 Nonspecific intraventricular block
CPT/HCPCS: 99214

== ENCOUNTER → 2025-01-05 14:12 | Outpatient (BNVA) | payer MEDICARE, SELFPAY | PROVIDERS: PCP Internal Medicine; Visit Provider Internal Medicine Hypertension Specialist | DX: I45.4 Nonspecific intraventricular block (principal); R80.9 Proteinuria, unspecified; I49.49 Other premature depolarization; N18.9 Chronic kidney disease, unspecified; I95.9 Hypotension, unspecified | CPT/HCPCS: 99212 ==

== ENCOUNTER 2025-02-15 13:56 | Outpatient (REF) | payer MEDICARE, SELFPAY ==
[2025-02-15 14:07] LABS: MANUAL DIFF FLAG NO
[2025-02-15 15:21] LABS: Hematocrit 39.8 % (42.0-52.0); Hemoglobin 12.5 g/dl (14.0-18.0); Imm Gran Abs Auto 0.02 X10*3/uL (0.00-0.03); Imm Gran Pct Auto 0.2 % (0.0-0.4); Lymphocytes Absolute Auto 2.0 X10*3/uL (1.2-4.9); Mean Corpuscular HGB Conc 31.4 g/dl (31.0-36.0); Mean Corpuscular Hemoglobin 29.9 pg (27.0-33.0); Mean Corpuscular Volume 95.2 fL (80.0-98.0); NRBC Abs Auto 0.000 X10*3/uL (0.0-0.012); NRBC Pct Auto 0.0 /100WBC (0.0-0.2); Platelet Count 451 X10*3/uL (160-400); Red Blood Count 4.18 X10*6/uL (4.60-5.80); White Blood Count 8.3 X10*3/uL (4.8-10.8)
[2025-02-15 15:30] LABS: Appearance Urine Clear; Glucose Urine UA Negative (Negative); PH 5.5 (5.0-9.0); Specific Gravity - Urine 1.020 (1.005-1.025)
[2025-02-15 16:08] LABS: Alanine Aminotransferase 26 U/L (0-40); Albumin Level 3.8 g/dL (3.5-5.0); Alkaline Phosphatase 85 U/L (39-117); Anion Gap 10 (12-20); Aspartate Amino Transferase 29 U/L (5-37); Blood Urea Nitrogen 17 mg/dL (9-16); Calcium 9.4 mg/dL (8.4-10.2); Carbon Dioxide 28 mmol/L (22-29); Chloride 107 mmol/L (96-108); Cholesterol 141 mg/dL (<200); Estimated Glomerular Filt Rate > 60; HDL Cholesterol 23 mg/dL (>40); Potassium 4.0 mmol/L (3.3-5.1); Sodium 141 mmol/L (135-145); Total Protein 7.7 g/dL (6.5-8.0); Triglycerides 269 mg/dL (<150)
[2025-02-15 16:08] LABS: Microalbum/Creatinine Ratio Ur 4.3 ug/mg cr (<30)
--- OUTSIDE RECORDS SUMMARY | 2025-02-15 17:36 | XMS_ITS | Patient Health Record ---
[facility] Address [address] [place] [address] Care Team Providers Care Roll Carrier Name Role Phone Terry French MDneth Primary Care Provider John Tinoco Unavailable [phone] Allergies Allergen (clinical drug ingredient) Drug/Non Drug [...] Status Risk Notes Problem Acquired hallux valgus (06204079) Hallux valgus (acquired), left foot (M20.12) Active confirmed Problem Non-pressure chronic ulcer of other part of right foot with fat layer exposed (L97.512) Active confirmed Problem Chronic ulcer of foot (721537498) Non-pressure chronic ulcer of other part of left foot with fat layer exposed (L97.522) Active confirmed Problem Acquired hallux valgus (24012015) Hallux valgus (acquired), right foot (M20.11) Active confirmed Plan Of Treatment Pending Test Test Name Order Date [id number] SKIN/TISSUE 09/29/2020 75909 I&D ABSCESS- SIMPLE,SINGLE 020 Insurance Providers Payer Name Payer Address Payer Phone Subscriber Number Group Number Insured Name Patient Relationship to Insured Coverage Start Date Coverage End Date [facility] [address] [facility] [place] [address] [id number] Christian Becker Self - patient is the insured Medical (General) History Medical History History ICD Code Cholesterol Measles Mumps Chicken pox Surgical History Surgery Date(Month/Year)
--- OUTSIDE RECORDS SUMMARY | 2025-02-15 17:36 | XMS_ITS | Clinical Summary ---
Author Organization [facility] Address [address] [place] [address] Phone Care Team Providers Care Stock Car Driver Name Role Phone Clayton French MD Primary Care Provider [phone] [phone] Allergies No known active allergies Medications dicyclomine [...] [place] [employer] H[place] RE[place]ACEMENT Care Teams Stock Car Driver Relationship Specialty Start Date End Date Clayton French MD [address] [place] [address] PCP - General Internal Medicine 09/04/22 Additional Source Comments The information contained in this document represents components of the legal health record. It is not the complete legal health record.[facility]
== END 2025-02-15 13:57 | disposition home or self-care (01) ==
LOC: HO.LAB 13:56
PROVIDERS: PCP Internal Medicine; Visit Provider Internal Medicine
DX: E11.9 Type 2 diabetes mellitus without complications (principal); E78.00 Pure hypercholesterolemia, unspecified; D64.9 Anemia, unspecified; R80.9 Proteinuria, unspecified; R30.0 Dysuria
CPT/HCPCS: 36415; 80053; 80061; 81003; 82043; 82570; 84443; 85025

== ENCOUNTER 2025-02-23 12:08 | Outpatient (AMB) | payer MEDICARE, SELFPAY ==
[2025-02-23 12:33] VITALS: BP 150/90; PULSE 87; O2SAT 94; BMI 25.0
--- NOTE | 2025-02-23 12:33 | MHC.PC.OV ---
Vital Signs 02/23/25 12:33 Height 5 ft 9 in Weight 169 lb 4 oz BMI 25.0 BP 150/90 H Blood Pressure Location Lt brachial Position Sitting Pulse 87 Pulse Source Pulse Oximeter Pulse Oximetry (%) 94 Oxygen Delivery Method Room Air Intake Visit Reasons: proteinuria, edema Intake Coordinator Required: No Accompanied by: Self / Same As Patient Allergies lactose (LACTOSE) Allergy (Severe, Verified 02/23/25 12:47) DIARHEA, abd pain, bloating, Medication List - Last Reconciled 02/23/25 by Clayton French MD dicyclomine 20 mg PO TID 30 days gabapentin 600 mg PO BEDTIME 30 days midodrine 5 mg PO DAILY pravastatin 40 mg PO DAILY 90 days Tobacco use date assessed: 02/23/25 Fall risk assessment: No Falls in past year Last assessed Fall Risk: 02/23/25 Dental Screening Dental Screen Date: 02/23/25 Did you have a dental visit in the last 12 months?: No Did you have a dental problem in the last 6 months where you did not have access to dental care?: No Was dental information given to patient?: Patient declined HPI proteinuria, edema HPI Details Patient comes in today for his follow-up visit States that he currently feels okay He was last seen about 3 months ago on 11/17/2024, wherein he was experiencing increased fatigue, swelling of her leg and feet as well as increasing shortness of breath and recurrent dizziness His follow up labs done at the time revealed (+) significant proteinuria He was noted at that time to be taking both Nabumetone, which he has been taking for his joint pains for the past 2 to 3 years, and Celecoxib, which he was started on by orthopedics about 1 to 2 months prior for increasing joint pains, and he was instructed to immediately stop taking both of these medications He was sent for additional labs at the time, which confirmed his proteinuria and also showing some findings of YAHIR He was referred to Nephrology for urgent consultation Serological workups done all reportedly came back negative and he was also started on low-dose diuretics to help improve his renal perfusion Renal ultrasound done back in November 2024 revealed (+) nonobstructing 2 mm calculus within the left kidney. Benign left renal cyst. Both kidneys are otherwise normal He was started on Midodrine as well to help keep his blood pressure from bottoming out as he was noted to have persistently low blood pressure readings at the time Patient recalls that he was brought to the emergency room at [facility] back on 12/21/2024 for a syncopal episode [place] was [place] was urinating, per his , when he passed out suddenly Workups done in the ER came back normal except his EKG, which reportedly showed a right bundle branch block and a left fascicular block at the time and patient was advised to follow-up on this with his PCP KRYSTA His previous EKG done on 11/17/2024 revealed NSR with low voltage QRS and an incomplete RBBB He was advised by Nephrology at his most recent follow-up with them that his proteinuria has now completely resolved Patient currently denies any headaches or dizziness Denies any chest pains, no increased SOB No nausea/vomiting, no abdominal pain No change in bowel habits noted He had his follow-up labs done last week - to discuss his results [facility] Medical History Primary osteoarthritis of left hip Primary osteoarthritis of knees, bilateral Abnormal colonoscopy History of adenomatous polyp of colon Irritable bowel syndrome (IBS) Tubular adenoma of colon Elevated blood pressure reading Pure hypercholesterolemia Surgical History Hx of colonoscopy History of eye surgery Family History Father Prostate cancer Brother Hepatitis Social History Housing: Apartment Are you a primary pet caretaker to a significant other at home: No Do you presently have visiting nurse or other home services: No Alcohol intake: former Patient Tobacco Use Status: Former Tobacco user e-Cigarette/Vaping Use: Former Use Second Hand Smoke Exposure: Yes service: No Current occupational status: retired Cognitive needs: No Hearing needs: Yes Vision needs: Yes Questionnaire PHQ-9 Over the last 2 weeks, how often have you been bothered by any of the following problems? 1. Little interest or pleasure in doing things: not at all 2. Feeling down, depressed, or hopeless: not at all 3. Trouble falling or staying asleep, or sleeping too much: nearly every day 4. Feeling tired or having little energy: nearly every day 5. Poor appetite or overeating: nearly every day 6. Feeling bad about yourself - or that you are a failure or have let yourself or your family down: not at all 7. Trouble concentrating on things, such as reading the newspaper or watching television: not at all 8. Moving or speaking so slowly that other people could have noticed. Or the opposite - being so fidgety or restless that you have been moving around a lot more than usual: not at all 9. Thoughts that you would be better off or of hurting yourself in some way: not at all Total score: 9 Depression Screening Interpretation: Positive Depression Screening Follow-up: Follow-up Visit Requested Depression Screening Done: Yes 15692 - PHQ-9 Billing: Yes Source: Developed by Drs. Kali Quintanilla, Sydney Felipe, Tera Millard and colleagues, with an educational allen from [employer]. Thrive Questionnaire Date Thrive assessed: 02/23/25 I am a: Patient What is your living situation today?: I have a steady place to live Within the past 12 months, did the food you bought not last and you didn't have the money to get more?: Never true Within the past 12 months, did you worry whether your food would run out before you got money to buy more?: Never true Do you have trouble paying for medicines?: No Do you have trouble getting transportation to medical appointments?: No Do you have trouble paying your heating and electricity bill?: No Do you have trouble taking care of your child, family member or friend?: No Do you have trouble with day-to-day activities such as bathing, preparing meals, shopping, managing finances, etc.?: No Are you currently unemployed and looking for a job?: No Are you interested in more education?: No Please select the resources that you would like help with: None Currently or been in a relationship where the following occur: No concerns reported THRIVE Score: 0 AUDIT C Alcohol Use Questionnaire (AUDIT-C) 1. How often do you have a drink containing alcohol?: Never 3. How often do you have six or more drinks on one occasion?: Never Total Score: 0 Score Reviewed/Action Taken: Yes AARON-7 AMB Questionnaire AARON-7 Date AARON - 7 assessed: 02/23/25 Feeling nervous, anxious, or on edge: 0 = Not at all Not being able to stop or control worryin = Not at all Worrying too much about different things: 0 = Not at all Trouble relaxin = Not at all Being so restless that it is hard to sit still: 0 = Not at all Becoming easily annoyed or irritable: 0 = Not at all Feeling afraid as if something awful might happen: 0 = Not at all Total AARON-7 score (0-4 normal; 5-9 mild; 10-14 moderate; 15-21 severe): 0 Source: Developed by Drs. Kali Quintanilla, Sydney Felipe, Tera Millard and colleagues, with an educational allen from [employer]. Review of Systems Const Denies chills, Reports fatigue (mild), Denies fever(s) and Denies headache(s) ENT Details: * patient is somewhat hard of hearing and has a tendency to read lips to compensate Denies dysphagia, Reports dizziness (on and off, especially when he moves or gets up too quickly), Denies otalgia, Denies headache(s), Reports hearing loss, Denies neck pain, Denies odynophagia and Denies sore throat Card Denies chest pain, Denies palpitations and Reports dyspnea on exertion (mild) Resp Denies chest congestion, Denies cough, Reports dyspnea on exertion (mild) and Denies wheezing GI Denies abdominal pain, Denies constipation, Denies dysphagia, Denies heartburn, Denies diarrhea, Denies nausea, Denies odynophagia and Denies vomiting Denies difficulty urinating, Denies dysuria, Denies nocturia and Denies urinary frequency Musc Denies back pain, Reports arthralgias (increased pain in both knees and left hip - worse at night), Denies neck pain and Reports stiffness Skin/Breast Denies rash Neuro Reports dizziness (on and off, especially when he moves or gets up too quickly) and Denies headache(s) Endo Reports fatigue (mild) and Denies palpitations Aller/Immun Denies wheezing Physical exam (Primary Care) Vital Signs: Last Vital Signs Pulse 87 02/23/25 12:33 BP 150/90 H 02/23/25 12:33 Pulse Ox 94 02/23/25 12:33 Oxygen Delivery Method Room Air 02/23/25 12:33 BMI result Body Mass Index 25.0 Tobacco/Smoking Status: Tobacco use Status Tobacco use date assessed 02/23/25 02/23/25 12:41 Patient Tobacco Use Status Former Tobacco user 02/23/25 12:41 e-Cigarette/Vaping Use Former Use 02/23/25 12:41 PHQ-9: PHQ-9 Score PHQ-9: Total score 9 02/23/25 12:48 Depression Screening Interpretation: Positive Depression Screening Follow-up: Follow-up Visit Requested Thrive Assessment: Date of Thrive Assessment Date Thrive assessed 02/23/25 02/23/25 12:41 Currently or been in a relationship where the following occur: No concerns reported Const General: no acute distress and alert HENMT Ears: TM's normal bilaterally and EAC's normal Throat: Yes posterior oropharynx normal and Yes tonsils normal (no TP congestion noted) Neck Neck: Yes supple and No lymphadenopathy Thyroid: Thyroid normal Resp Auscultation: no crackles, no rales, no wheezes and diminished lung sounds (slightly) bilateral Cardio Rate: regular rate Rhythm: abnormal rhythm with ectopic beats Heart sounds: Murmur heart sound present systolic soft, II/ and at the apex GI Palpation (GI): Soft to palpation, nontender and no guarding Auscultation: normal bowel sounds General: Yes no CVA tenderness Back/Spine/Pelvis Back: no CVA tenderness Thoracic/Lumbar Spine: No lumbar spinal tenderness Skin Rashes: no rashes Extrem General: Yes no clubbing, cyanosis or edema Right lower extremity: hip/thigh Details: tenderness Location: of the hip and knee Details: tenderness and swelling (mild) Left lower extremity: knee Details: tenderness and swelling (mild) Results Reviewed Results Reviewed: Laboratory Tests 02/15/25 02/15/25 14:02 14:05 WBC 8.3 Hgb 12.5 L Hct 39.8 L Plt Count 451 H Sodium 141 Potassium 4.0 Creatinine 0.94 Estimated GFR > 60 Fasting Glucose 114 H Calcium 9.4 AST 29 ALT 26 Triglycerides 269 H Cholesterol 141 LDL Cholesterol, Calc 65 HDL Cholesterol 23 L TSH 1.31 Ur Specific Dyer 1.020 Urine Protein Negative Urine Glucose (UA) Negative Urine Blood Negative Urine Nitrite Negative Ur Leukocyte Esterase Negative Microalb/Creat Ratio 4.3 Coding Level of Care Code Est Pt Level 4 (52224) Diagnoses Pure hypercholesterolemia E78.00 Elevated blood pressure reading R03.0 Impaired fasting glucose R73.01 Proteinuria, unspecified type R80.9 Proteinuria type: unspecified Exertional dyspnea R06.09 Ectopic cardiac beats I49.49 Abnormal finding on EKG R94.31 Primary osteoarthritis of knees, bilateral M17.0 Primary osteoarthritis of left hip M16.12 Irritable bowel syndrome, unspecified type K58.9 Irritable bowel syndrome type: unspecified History of adenomatous polyp of colon Z86.010 Additional Codes PHQ-9 - 28218 - PHQ-9 Billing: Yes ([id number]) Assessment & Plan Assessment & Plan (1) Pure hypercholesterolemia: Code(s): E78.00 - Pure hypercholesterolemia, unspecified Category: Medical Plan: Results of his labs done last week reviewed and discussed with patient - his cholesterol levels have improved significantly from previous Reinforced low cholesterol diet Continue Pravastatin 40 mg QD Will recheck his labs and fasting lipids in 4 months for follow up (2) Elevated blood pressure reading: Code(s): R03.0 - Elevated blood-pressure reading, without diagnosis of hypertension Category: Medical Plan: Reinforced low sodium diet - goal is systolic BP of at least 140 mm or less His BP is elevated today but was reportedly running low consistently for the past few months He was also experiencing symptoms of recurrent dizziness over the past 3 to 4 months and was started on Midodrine 5 mg QD for orthostatic dizziness - he is presently still taking the Rx Patient has declined previous attempts to start him on blood pressure medications in the past Will have him continue monitoring his blood pressure regularly for now (3) Impaired fasting glucose: Code(s): R73.01 - Impaired fasting glucose Category: Medical Plan: His FBS has a tendency to run high often on his routine labs and is again high at 114 mg/dl on his recent labs done last week His HgbA1c was normal at 5.7% when last checked a few months ago and was at 5.7%, 5.3% and 5.5% when previously checked Reinforced low calorie diet/exercise as tolerated Will continue to monitor his FBS and HgbA1c regularly (4) Proteinuria: Code(s): R80.9 - Proteinuria, unspecified Category: Medical Qualifiers: Proteinuria type: unspecified Qualified Code(s): R80.9 - Proteinuria, unspecified Plan: He was found to have (+) significant proteinuria on his labs a few months ago and with his edema and increased fatigue at the time, YAHIR was suspected and patient was referred to nephrology KRYSTA for further evaluation and management He was on both Celecoxib and Nabumetone at the time and these were stopped immediately; he was also advised to avoid all NSAIDs completely since Work ups done by nephrology, including serological work ups, all came back normal/negative and he was advised at his most recently nephrology follow up that his proteinuria has now completely resolved Follow up with nephrology as scheduled (5) Exertional dyspnea: Code(s): R06.09 - Other forms of dyspnea Category: Medical Plan: Chest x-rays done back in October 2024 revealed no acute infiltrates but (+) findings suggestive of interstitial lung disease BNP was normal back then at 61 pg/ml (6) Ectopic cardiac beats: Code(s): I49.49 - Other premature depolarization Category: Medical Plan: 12-lead EKG done back in October 2024 revealed NSR, low voltage QRS and an incomplete RBBB (7) Abnormal finding on EKG: Code(s): R94.31 - Abnormal electrocardiogram [ECG] [EKG] Category: Medical Plan: Patient was brought to the ER at [facility] a couple of months ago after he had a syncopal episode - work ups done at the ER all reportedly came back normal except for his EKG, which at the time reportedly showed a right bundle-branch block and left anterior fascicular block and patient was advised to follow-up on this with his PCP KRYSTA His EKG done back in October 2024 revealed NSR, low voltage QRS and an incomplete RBBB Will send patient for repeat EKG KRYSTA and an echocardiogram for further evaluation (8) Primary osteoarthritis of knees, bilateral: Code(s): M17.0 - Bilateral primary osteoarthritis of knee Category: Medical Plan: Knee x-rays done back in July 2022 revealed (+) mild tricompartmental degenerative changes of both knees; (+) chondrocalcinosis; no acute abnormalities otherwise Continue Gabapentin 600 mg Q HS He was also taking Nabumetone 500 mg Q AM PRN and was started additionally on Celcoxib by orthopedics a few months ago Both Celecoxib and Nabumetone were discontinued immediately when patient presented with proteinuria and symptoms of YAHIR back in October 2024 States that his knee pain have also improved with aspiration and cortisone injections with [facility] Orthopedics last year Follow up with orthopedics as scheduled (9) Primary osteoarthritis of left hip: Code(s): M16.12 - Unilateral primary osteoarthritis, left hip Category: Medical Plan: X-rays of the left hip done in July 2022 revealed (+) moderate to severe degenerative changes of the left hip Follow up with Orthopedics as scheduled (10) Irritable bowel syndrome (IBS): Code(s): K58.9 - Irritable bowel syndrome, unspecified Category: Medical Qualifiers: Irritable bowel syndrome type: unspecified Qualified Code(s): K58.9 - Irritable bowel syndrome without diarrhea Plan: Continue Dicyclomine 20 mg TID PRN (11) History of adenomatous polyp of colon: Code(s): Z86.010 - Personal history of colon polyps Category: Medical Plan: He was supposed to get a CT colonography done a couple of years ago but patient did not go Repeat colonoscopy done in October 2020 was incomplete, reportedly due to a sharp angulation encountered at the 35 to 40 cm level that made it risky to continue attempting to advance the scope but patient feels that this was due more to the doctor's fault for not being able to complete the procedure - is not happy about having to go through the prep again and has adamantly refused to go for CT colonography He continues to decline getting another colon exam but is again advised to think about it and to REconsider his decision Discussed again option of doing Cologuard test instead in another year or so if he does not want to go back for a CT colonography or a regular colonoscopy - is advised to think about this OR consider a referral to another provider of his choice for a repeat colonoscopy He continues to decline offer to refer him back for colon cancer screening; declines Cologuard as well Plan Follow up in 4 months Orders: Orders CA echo transthoracic complete 02/23/25 I45.4 - Nonspecific intraventricular block Comprehensive Bassett. Panel Fast 4 Months E78.00 - Pure hypercholesterolemia, unspecified TSH reflex Free T4 4 Months E78.00 - Pure hypercholesterolemia, unspecified UA CC w/rflx Micro + Cult 4 Months R30.0 - Dysuria Vitamin D 25-OH Total 4 Months E55.9 - Vitamin D deficiency, unspecified ECG 12 lead EKG 02/24/25 I45.4 - Nonspecific intraventricular block Complete Blood Count Auto Diff 4 Months D64.9 - Anemia, unspecified Lipid Panel 4 Months E78.00 - Pure hypercholesterolemia, unspecified Hemoglobin A1c 4 Months R73.01 - Impaired fasting glucose
--- OUTSIDE RECORDS SUMMARY | 2025-02-23 14:53 | XMS_ITS | Patient Health Record ---
[facility] Address [address] [place] [address] Care Team Providers Care Waterworks Pump Station Operator Name Role Phone Terry French MDneth Primary Care Provider John Tinoco Unavailable [phone] Allergies Allergen (clinical drug ingredient) Drug/Non Drug [...] Status Risk Notes Problem Acquired hallux valgus (93976544) Hallux valgus (acquired), left foot (M20.12) Active confirmed Problem Non-pressure chronic ulcer of other part of right foot with fat layer exposed (L97.512) Active confirmed Problem Chronic ulcer of foot (004770619) Non-pressure chronic ulcer of other part of left foot with fat layer exposed (L97.522) Active confirmed Problem Acquired hallux valgus (02007056) Hallux valgus (acquired), right foot (M20.11) Active confirmed Plan Of Treatment Pending Test Test Name Order Date [id number] SKIN/TISSUE 09/29/2020 12675 I&D ABSCESS- SIMPLE,SINGLE 020 Insurance Providers Payer Name Payer Address Payer Phone Subscriber Number Group Number Insured Name Patient Relationship to Insured Coverage Start Date Coverage End Date [facility] [address] [facility] [place] [address] [id number] Christian Becker Self - patient is the insured Medical (General) History Medical History History ICD Code Cholesterol Measles Mumps Chicken pox Surgical History Surgery Date(Month/Year)
--- OUTSIDE RECORDS SUMMARY | 2025-02-23 14:53 | XMS_ITS | Clinical Summary ---
Author Organization [facility] Address [address] [place] [address] Phone Care Team Providers Care Driver Education Instructor Name Role Phone Clayton French MD Primary Care Provider [phone] Allergies No known active allergies Medications dicyclomine [...] [employer] [place] [employer]ACEMENT Care Teams Driver Education Instructor Relationship Specialty Start Date End Date Clayton French MD [address] [place] [id number] PCP - General Internal Medicine 09/04/22 Additional Source Comments The information contained in this document represents components of the legal health record. It is not the complete legal health record.[facility]
== END 2025-02-23 13:09 | disposition home or self-care (01) ==
LOC: HO.HMCH 12:08
PROVIDERS: PCP Internal Medicine; Visit Provider Internal Medicine
DX: E78.00 Pure hypercholesterolemia, unspecified (principal); R03.0 Elevated blood-pressure reading, without diagnosis of hypertension; R73.01 Impaired fasting glucose; R80.9 Proteinuria, unspecified; R06.09 Other forms of dyspnea; I49.49 Other premature depolarization; R94.31 Abnormal electrocardiogram [ECG] [EKG]; M17.0 Bilateral primary osteoarthritis of knee; M16.12 Unilateral primary osteoarthritis, left hip; K58.9 Irritable bowel syndrome, unspecified; Z86.0100 Personal history of colon polyps, unspecified

== ENCOUNTER → 2025-02-23 12:08 | Outpatient (BNVA) | payer MEDICARE, SELFPAY | PROVIDERS: PCP Internal Medicine; Visit Provider Internal Medicine | DX: M17.0 Bilateral primary osteoarthritis of knee (principal); R53.83 Other fatigue; R06.02 Shortness of breath; R80.9 Proteinuria, unspecified; E78.00 Pure hypercholesterolemia, unspecified; R03.0 Elevated blood-pressure reading, without diagnosis of hypertension; R73.01 Impaired fasting glucose; R06.09 Other forms of dyspnea; I49.49 Other premature depolarization; R94.31 Abnormal electrocardiogram [ECG] [EKG]; M16.12 Unilateral primary osteoarthritis, left hip; K58.9 Irritable bowel syndrome, unspecified; Z86.0100 Personal history of colon polyps, unspecified | CPT/HCPCS: 96127; 99212 ==

== ENCOUNTER → 2025-02-24 08:10 | Outpatient (REF) | payer MEDICARE, SELFPAY ==
--- NOTE | 2025-02-24 08:14 | ECG_ITS ---
Test Reason : I45.4 Blood Pressure : */* mmHG Vent. Rate : 69 BPM Atrial Rate : 69 BPM P-R Int : 172 ms QRS Dur : 142 ms QT Int : 442 ms P-R-T Axes : 53 252 25 degrees QTcB Int : 473 ms Normal sinus rhythm Right bundle branch block Abnormal ECG When compared with ECG of 17-Nov-2024 10:40, Right bundle branch block has replaced Incomplete right bundle branch block Referred By: Clayton French Electronically Signed By: Gokul Paul
--- OUTSIDE RECORDS SUMMARY | 2025-02-24 08:19 | XMS_ITS | Clinical Summary ---
Author Organization [facility] Address [address] [place] [address] Phone Care Team Providers Care Bi Analyst Name Role Phone Clayton French MD Primary Care Provider [phone] Allergies No known active allergies Medications dicyclomine [...] [employer] [place] [employer] Care Teams Bi Analyst Relationship Specialty Start Date End Date Clayton French MD [address] [place] [id number] PCP - General Internal Medicine 09/04/22 Additional Source Comments The information contained in this document represents components of the legal health record. It is not the complete legal health record.[facility]
--- OUTSIDE RECORDS SUMMARY | 2025-02-24 08:20 | XMS_ITS | Patient Health Record ---
[facility] Address [address] [place] [address] Care Team Providers Care Talent Specialist Name Role Phone Terry French MDneth Primary Care Provider John Tinoco Unavailable [phone] Allergies Allergen (clinical drug ingredient) Drug/Non Drug [...] Status Risk Notes Problem Acquired hallux valgus (00978931) Hallux valgus (acquired), left foot (M20.12) Active confirmed Problem Non-pressure chronic ulcer of other part of right foot with fat layer exposed (L97.512) Active confirmed Problem Chronic ulcer of foot (077306032) Non-pressure chronic ulcer of other part of left foot with fat layer exposed (L97.522) Active confirmed Problem Acquired hallux valgus (38349524) Hallux valgus (acquired), right foot (M20.11) Active confirmed Plan Of Treatment Pending Test Test Name Order Date [id number] SKIN/TISSUE 09/29/2020 10837 I&D ABSCESS- SIMPLE,SINGLE 020 Insurance Providers Payer Name Payer Address Payer Phone Subscriber Number Group Number Insured Name Patient Relationship to Insured Coverage Start Date Coverage End Date [facility] [address] [place] [address] [phone] [id number] Christian Becker Self - patient is the insured Medical (General) History Medical History History ICD Code Cholesterol Measles Mumps Chicken pox Surgical History Surgery Date(Month/Year)
== END ==
LOC: HO.CARD 08:10
PROVIDERS: PCP Internal Medicine; Visit Provider Internal Medicine
DX: I45.4 Nonspecific intraventricular block (principal)
CPT/HCPCS: 93005

== ENCOUNTER → 2025-02-24 08:14 | Outpatient (BNV) | payer MEDICARE, SELFPAY | PROVIDERS: PCP Internal Medicine; Visit Provider Internal Medicine Cardiovascular Disease | DX: I45.10 Unspecified right bundle-branch block (principal) | CPT/HCPCS: 93010 ==

== ENCOUNTER → 2025-03-26 13:41 | Outpatient (REF) | payer MEDICARE, SELFPAY ==
--- NOTE | 2025-03-26 13:43 | CA_ITS ---
Transthoracic Echocardiogram Patient (Last, First, Middle): Christian Becker R Gender: Male Date of : 1950 Age: 74 Procedure Date: 03/26/2025 Procedure Type: Transthoracic Echocardiogram Location: OP Height: 175.26 cm Weight: 77.11 kg BSA: 1.93 m2 Heart Rate: bpm BP: 138 / 80 mmHg Direct Marketing Analyst: TO Referring MD: Clayton French MD Symptoms: I45.4 - Nonspecific intraventricular block Study Quality: Fair/Contrast ECG Rhythm: Sinus Conclusions: - The left ventricular systolic function is normal. The calculated ejection fraction is 57% by biplane method. - There is mild calcification of the aortic valve. Findings Procedure Information Contrast agent, definity, is being given per protocol without apparent complications. Left Ventricle Normal left ventricular cavity size. There is normal left ventricular wall thickness. The left ventricular systolic function is normal. The calculated ejection fraction is 57% by biplane method. There is no evidence of regional wall motion abnormalities. Diastolic function is normal for age. Right Ventricle Normal right ventricular cavity size and systolic function. Atria Both atria are normal in size. Aortic Valve There is mild calcification of the aortic valve. There is no aortic valve stenosis. There is trace (trivial) aortic valve regurgitation. Mitral Valve The mitral valve appears normal. There is trace mitral valve regurgitation. There is no mitral valve stenosis. Pulmonic Valve The pulmonic valve is likely normal. Tricuspid Valve Normal tricuspid valve structure. There is trace tricuspid valve regurgitation. There is no evidence of pulmonary hypertension. Great Vessels The asc aorta is normal in size. Small plaque is seen in the sino tubular ridge. Venous The inferior vena cava is normal in size and collapses greater than 50% with inspiration. Pericardium/Pleural There is no evidence of pericardial effusion. Prior Study Comparison No prior study available for comparison. Measurements 2D Linear Measurements IVSd: 0.96 0.6-0.9/0.6-1.0 cm LVIDd: 3.68 3.9-5.3/4.2-5.9 cm LVIDd Index: 1.91 2.4-3.2/2.2-3.1 cm/m2 LVIDs: 2.34 2.0-3.6 cm LVPWd: 0.97 0.7-1.1 cm LA Diam: 3.00 2.7-3.8/3.0-4.0 cm LAIDs Index: 1.55 1.5-2.3 cm/m2 LV Mass: 132.38 67-162/88-224 g LV Mass Index: 68.59 43-95/49-115 g/m2 LVOT Diam: 2.00 3.0+(-)1.3 cm 2D Systolic Function EF 4C: 59.70 >55% EF 2C: 51.80 >55% EF BiP: 56.90 >55% Mitral Valve MV Pk E: 0.62 MV PK A: 0.86 MV Decel Time: 130.00 E/A: 0.70 E'Lateral: 6.42 E'Medial: 6.64 E/E' Med: 9.40 E/E' Lat: 9.70 PHT: 38.00 MVA PHT: 5.79 Decel Newberry: 4.77 Aortic Valve AoV Pk Woody: 1.28 AoV Mn Woody: 0.81 AoV VTI: 0.21 AoV Pk Grad: 7.00 Aov Mn Grad: 3.00 TIMMY Cont.VTI: 2.74 AI Pk Woody: 4.33 AI Newberry: 2.65 LVOT LVOT Pk Woody: 1.15 LVOT Mn Woody: 0.64 LVOT VTI: 0.19 LVOT Pk Grad: 5.00 LVOT Mn Grad: 2.00 LVOT Diam: 2.00 LVOT Area: 3.14 Diastolic Function MV Pk E: 0.62 MV Pk A: 0.86 E/A: 0.70 E'Medial: 6.64 E/E' Med: 9.40 E' Laterial: 6.42 E/E' Lat: 9.70 Right Ventricle TAPSE (mm): 21.30 TVS' Woody: 11.70 Tricuspid Valve TR Pk Woody: 1.52 TR Pk Grad: 9.00 RA Press: 3.00 RVSP: 12.00 Great Vessels Aorta Sinus of Valsalva: 3.11 2.0-3.[address] Ridge: 2.34 1.7-3.4 cm Ao Asc: 3.20 2.1-3.4 cm Updated in Other Vendor System with Status of Final John Gallegos MD electronically signed on 03/27/2025 2:20:54 PM with status of Final
--- OUTSIDE RECORDS SUMMARY | 2025-03-26 17:53 | XMS_ITS | Clinical Summary ---
Author Organization [facility] Address [address] [place] [id number] Phone Care Team Providers Care Nuclear Medicine Medical Director Name Role Phone Clayton French MD Primary Care Provider [phone] Allergies No known active allergies Medications dicyclomine [...] VACCINES (50+ years) (2 of 2 - PCV20 or PCV21) 01/10/2022 01/10/2021, 12/11/2019, 12/20/2016 INFLUENZA VACCINE (#1) [...] [employer] [place] [employer]ACEMENT Care Teams Nuclear Medicine Medical Director Relationship Specialty Start Date End Date Clayton French MD [address] [place] [address] [address] PCP - General Internal Medicine 09/04/22 Additional Source Comments The information contained in this document represents components of the legal health record. It is not the complete legal health record.[facility]
== END ==
LOC: HO.CARD 13:41
PROVIDERS: PCP Internal Medicine; Visit Provider Internal Medicine
DX: I45.4 Nonspecific intraventricular block (principal)
CPT/HCPCS: 93306; Q9957

== ENCOUNTER → 2025-03-26 13:43 | Outpatient (BNV) | payer MEDICARE, SELFPAY | PROVIDERS: PCP Internal Medicine; Visit Provider Internal Medicine | DX: I35.8 Other nonrheumatic aortic valve disorders (principal) | CPT/HCPCS: 93306 ==

== ENCOUNTER 2025-03-29 14:56 | Outpatient (AMB) | payer MEDICARE, SELFPAY ==
[2025-03-29 14:59] VITALS: BP 150/80; PULSE 70; TEMP 37; O2SAT 98; BMI 25.1
--- NOTE | 2025-03-29 14:59 | MHC.OFFWIV ---
Intake Vital Signs 03/29/25 14:59 Height 5 ft 9 in Weight 170 lb BMI 25.1 BP 150/80 H Blood Pressure Location Rt brachial Position Sitting Pulse 70 Pulse Source Pulse Oximeter Temp 98.6 F Temp Source Oral Pulse Oximetry (%) 98 Oxygen Delivery Method Room Air Intake Visit Reasons: EP Possible infection on back Intake Note: Patient presents upper left shoulder blade x2 weeks. Patient & state it is leaking thick white pus. Area is red, hard & has two heads, one which has a black spot in it. Patient Tobacco Use Status: Former Tobacco user Allergies lactose (LACTOSE) Allergy (Severe, Verified 03/29/25 15:04) DIARHEA, abd pain, bloating, Medication List - Last Reconciled 03/29/25 by Rosenda Arce NP cephalexin 500 mg PO BID 7 days dicyclomine 20 mg PO TID 30 days gabapentin 600 mg PO BEDTIME 30 days pravastatin 40 mg PO DAILY 90 days HPI HPI Comments History of Present Illness Details 74 y/o male presents to the walk-in clinic with c/o mid-back abscess x 2 weeks. History primarily provided by . Patient reports persistent drainage of thick off-white/yellow fluid. Area described as erythematous, indurated, with a dark open center. Mild tenderness noted. has been manually expressing drainage, applying Bacitracin ointment, and covering with a bandage. Denies fevers, chills, nausea, or vomiting. No known trauma or insect bite reported. [facility] Medical History (Updated 03/29/25 @ 15:54 by Rosenda Arce NP) Abscess of skin and subcutaneous tissue Primary osteoarthritis of left hip Primary osteoarthritis of knees, bilateral Abnormal colonoscopy History of adenomatous polyp of colon Irritable bowel syndrome (IBS) Tubular adenoma of colon Elevated blood pressure reading Pure hypercholesterolemia Surgical History Hx of colonoscopy History of eye surgery Family History Father Prostate cancer Brother Hepatitis Social History Housing: Apartment Are you a primary farm or ranch animal caretaker to a significant other at home: No Do you presently have visiting nurse or other home services: No Alcohol intake: former Patient Tobacco Use Status: Former Tobacco user e-Cigarette/Vaping Use: Former Use Second Hand Smoke Exposure: Yes service: No Current occupational status: retired Cognitive needs: No Hearing needs: Yes Vision needs: Yes Review of Systems Const All systems reviewed & are unremarkable except as noted in HPI and below Physical Exam Vital Signs: Last Vital Signs Temp 98.6 F 03/29/25 14:59 Pulse 70 03/29/25 14:59 BP 150/80 H 03/29/25 14:59 Pulse Ox 98 03/29/25 14:59 Oxygen Delivery Method Room Air 03/29/25 14:59 BMI result Body Mass Index 25.1 Const Other: No lymphangitic spread noted. No systemic signs of infection. General: no acute distress Orientation/consciousness: patient oriented x3 Skin Other: Mid-back: Abscess ~ (3cm) erythematous, indurated lesion with central open punctum. Thick purulent drainage expressed. Mild surrounding warmth. No fluctuance extending beyond borders. No streaking. Neuro General: patient oriented x3 Assessment & Plan Assessment & Plan (1) Abscess of skin and subcutaneous tissue: Code(s): L02.91 - Cutaneous abscess, unspecified Plan: Mid-back abscess with active purulent drainage ? subacute, persistent despite home care; likely bacterial skin abscess. Cellulitis of surrounding tissue, mild. Low suspicion for systemic infection given ROS and exam. Started empiric oral antibiotics - Keflex 500 mg BID x 7 days. Continue warm compresses 3?4x daily. Educated patient/ to avoid squeezing the lesion to prevent worsening infection or deeper spread. Daily dressing changes; keep area clean and dry. Return precautions: fever, chills, spreading redness, worsening pain, new drainage or odor. Medications: New cephalexin 500 mg PO BID 14 caps 0RF 7 days L02.91 - Cutaneous abscess, unspecified Coding Level of Care Code Est Pt Level 4 (85765) Diagnoses Abscess of skin and subcutaneous tissue L02.91 Time Spent (min) 20
--- OUTSIDE RECORDS SUMMARY | 2025-03-30 00:20 | XMS_ITS | Clinical Summary ---
Author Organization [facility] Address [address] [place] [id number] Phone Care Team Providers Care Cross Tie Cutter Name Role Phone Clayton French MD Primary Care Provider [phone] Allergies No known active allergies Medications dicyclomine [...] [employer] [place] [employer]EMENT Care Teams Cross Tie Cutter Relationship Specialty Start Date End Date Clayton French MD [address] [place] [address] [address] PCP - General Internal Medicine 09/04/22 Additional Source Comments The information contained in this document represents components of the legal health record. It is not the complete legal health record.[facility]
== END 2025-03-29 15:46 | disposition home or self-care (01) ==
PROVIDERS: PCP Internal Medicine; Visit Provider Nurse Practitioner Family
DX: L02.91 Cutaneous abscess, unspecified (principal)

== ENCOUNTER → 2025-03-29 14:56 | Outpatient (BNVA) | payer MEDICARE, SELFPAY | PROVIDERS: PCP Internal Medicine; Visit Provider Nurse Practitioner Family | DX: L02.212 Cutaneous abscess of back [any part, except buttock and flank] (principal) | CPT/HCPCS: 99212 ==